=== PATIENT | male | born 1950 | race Caucasian/White ===

== ENCOUNTER 2019-07-18 15:43 | Outpatient (CLI) | payer MEDICARE, OTHER, SELFPAY ==
--- NOTE | 2019-07-18 15:45 | USCV_ITS ---
Tenzin Hauser Age: 68 Gender: M : 1950 Exam Date: 07/18/2019 16:00 Ordering Phys: Castro Pang MD (Andy) ([email or web address]) Technologist: Funmilayo Longo [place] [facility] [place]: arteriosclerosis both carotid arteries Risk Factors: Previous Vascular Surgery: L CEA Right Brachial BP: / Left Brachial BP: / Right Left Velocity (cm/s) Spectral Plaque Velocity (cm/s) Spectral Plaque Syst/Diast Broadening Syst/Diast Broadening 67.50/ 8.50 Prox CCA 61.40 / 9.30 40.10/ 7.90 Mid CCA 39.00 / 8.50 34.20/ 9.90 Bharat Distal CCA 49.30 / 13.80 41.40/ 11.80 Homo Prox ICA 44.70 / 9.90 Homo 58.30/ 15.50 Homo Mid ICA 82.90 / 23.90 Homo 72.20/ 25.60 Distal ICA 96.60 / 29.90 94.80 ECA 42.00 1.07 ICA/CCA 1.57 Antegrade Vertebral Antegrade 21.40/ 5.30 cm/s 61.50/ 21.40 cm/s Bi Subclavian Bi 79.40 97.30 FINDINGS Moderate heterogeneous plaques of the right bifurcation and internal carotid artery. Minimal plaques at the left bifurcation and proximal internal carotid artery. Moderate diffuse plaques at the mid and distal internal carotid artery on the left side Intimal thickening and minimal plaques in the common carotid arteries bilaterally Antegrade flow in the vertebral arteries bilaterally Normal Doppler flow velocities in the external carotid arteries bilaterally CONCLUSIONS Moderate heterogeneous plaques at the right bifurcation and internal carotid artery. Minimal plaques at the left bifurcation and proximal internal carotid artery. Moderate diffuse plaques at the mid and distal internal carotid artery on the left side. No significant stenosis, based on the above findings Dr Jeramy Collado MD [facility] (Electronically Signed) Final Date: 18 July 2019 20:52 S
== END 2019-07-18 15:44 | disposition home or self-care (01) ==
PROVIDERS: Family Provider Electrodiagnostic Medicine; PCP Electrodiagnostic Medicine; Visit Provider Thoracic Surgery (Cardiothoracic Vascular Surgery)
DX: I65.23 Occlusion and stenosis of bilateral carotid arteries (principal)
CPT/HCPCS: 93880

== ENCOUNTER 2019-07-25 07:32 | Outpatient (RCR) | payer MEDICARE, OTHER, SELFPAY | END 2019-08-13 23:59 | disposition home or self-care (01) | LOC: SPT 07:32 | PROVIDERS: Family Provider Electrodiagnostic Medicine; PCP Electrodiagnostic Medicine; Referring Provider Orthopaedic Surgery; Visit Provider Orthopaedic Surgery | DX: Z47.1 Aftercare following joint replacement surgery (principal); Z96.651 Presence of right artificial knee joint | CPT/HCPCS: 97110; 97150; 97161; G0283 ==

== ENCOUNTER 2019-08-14 06:00 | Outpatient (RCR) | payer MEDICARE, OTHER, SELFPAY | END 2019-09-13 23:59 | disposition home or self-care (01) | LOC: SPT 06:00 | PROVIDERS: Family Provider Electrodiagnostic Medicine; PCP Electrodiagnostic Medicine; Referring Provider Orthopaedic Surgery; Visit Provider Orthopaedic Surgery | DX: Z47.1 Aftercare following joint replacement surgery (principal); Z96.651 Presence of right artificial knee joint | CPT/HCPCS: 97110; 97530 ==

== ENCOUNTER 2019-09-14 06:00 | Outpatient (RCR) | payer MEDICARE, OTHER, SELFPAY | END 2019-10-13 23:59 | disposition home or self-care (01) | LOC: SPT 06:00 | PROVIDERS: Family Provider Electrodiagnostic Medicine; PCP Electrodiagnostic Medicine; Referring Provider Orthopaedic Surgery; Visit Provider Orthopaedic Surgery | DX: Z47.1 Aftercare following joint replacement surgery (principal); Z96.651 Presence of right artificial knee joint | CPT/HCPCS: 97110 ==

== ENCOUNTER 2020-03-06 12:19 | Outpatient (CLI) | payer MEDICARE, OTHER, SELFPAY ==
--- NOTE | 2020-03-06 12:30 | XRR_ITS ---
PROCEDURE INFORMATION: Exam: XR Bilateral Hips with Pelvis when Performed Exam date and time: 03/06/2020 12:47 PM Age: 69 years old Clinical indication: Hip pain; Bilateral; Prior surgery; Surgery type: Lumbar TECHNIQUE: Imaging protocol: XR bilateral hips with pelvis when performed. Views: 2 views. COMPARISON: CR Hips Bilat 3-4v wwo Pelv [id number] 03/09/2018 9:52 AM FINDINGS: Bones/joints: No fracture. No dislocation. Subjectively moderate bilateral hip joint degeneration. Prior posterior estela fusion from L5 to S1 with interbody spacers at L5-S1. Prior surgery at symphysis pubis. The symphysis pubis is degenerated. Soft tissues: No acute soft tissue abnormality. XR/XR hip BI 3-4V wo/w pel [id number] IMPRESSION: Bilateral moderate hip joint degeneration.
== END 2020-03-06 12:20 | disposition home or self-care (01) ==
LOC: RAD 12:25
PROVIDERS: PCP Electrodiagnostic Medicine; Visit Provider Electrodiagnostic Medicine
DX: M16.0 Bilateral primary osteoarthritis of hip (principal)
CPT/HCPCS: 73522

== ENCOUNTER 2020-03-30 13:04 | Outpatient (CLI) | payer MEDICARE, OTHER, SELFPAY ==
--- NOTE | 2020-03-30 13:10 | MR_ITS ---
WS: [id number] MRI LUMBAR SPINE NONCONTRAST HISTORY: HIP Pain; acute LEG PAIN, DEGENERATIVE DISC DZ W/RADICULOPATHY COMPARISON: 04/09/2018 TECHNIQUE: Sagittal and axial multisequence imaging is submitted. There is severe degenerative disc disease and spondylosis throughout the cervical and thoracic spines . Advanced degenerative changes with osteophytes. Fusion at the C6-7 disc level. There is encroachmen t upon the cervical canal at C3-4 and C5-6. Since the prior MRI there has been posterior fusion at the L5-S1 level with interbody spacer. L4 ante rolisthesis by 4.7 mm is now present. Multilevel degenerative disc space. No acute fractures. Mild LEFT convex curvature of the lumbar spin e. Conus terminates normally at L1. L1-L2: Annular disc bulging with facet and ligamentum flavum arthritis. Disc is asymmetric to the RIG HT. There is persistent RIGHT foraminal and RIGHT subarticular recess stenosis which is moderate. L2-L3: Diffuse annular disc bulging and osteophytic ridging. Marked ligamentum flavum disease and fac et arthritis. Moderate central, subarticular recess and bilateral foraminal stenosis with mild progre ssion. L3-L4: Diffuse asymmetric disc bulging slightly greater to the LEFT. Mild ligamentum flavum disease a nd facet arthritis. There is mild disc encroachment into the LEFT lateral recess. Moderate to severe bilateral foraminal stenosis and mild subarticular recess stenosis and mild central stenosis. L4-L5: Diffuse annular disc bulging and osteophytic ridging. Bilateral laminectomy defects. There is still deformity of the thecal sac with severe bilateral foraminal stenosis. Fluid in the facet joints bilaterally. L5-S1: Diffuse annular disc bulging and osteophytic ridging. Nerve roots are being displaced peripher ally in the thecal sac. Large posterior laminectomy defect. Mild persistent bilateral foraminal steno sis. Postoperative changes cannot be further evaluated without IV contrast. Mild ectasia abdominal aorta. MR/MR lumbar spine wo con* [id number] IMPRESSION: 1. Interval posterior lumbar fusion at L5-S1 since the prior study of 04/09/20 18. The study was performed without contrast therefore the postsurgical changes and possible recurrent disc herniations and postoperative gliosis will be diff icult to differentiate. 2. New L4 anterolisthesis by 4.7 mm. 3. Moderate to severe bilateral foraminal stenosis at L3-4 with mild central a nd subarticular recess stenosis. 4. Persistent severe bilateral foraminal stenosis at L4-5. 5. Moderate RIGHT foraminal and subarticular recess stenosis at L1-2. 6. Moderate central, subarticular recess and bilateral foraminal stenosis at L 2-3 with mild progression.
== END 2020-03-30 13:05 | disposition home or self-care (01) ==
LOC: RADSHAW 13:08
PROVIDERS: PCP Electrodiagnostic Medicine; Visit Provider Electrodiagnostic Medicine
DX: M25.559 Pain in unspecified hip (principal); M79.606 Pain in leg, unspecified; M51.17 Intervertebral disc disorders with radiculopathy, lumbosacral region; M43.27 Fusion of spine, lumbosacral region; M48.061 Spinal stenosis, lumbar region without neurogenic claudication
CPT/HCPCS: 72148

== ENCOUNTER 2020-04-03 10:28 | Outpatient (CLI) | payer MEDICARE, OTHER, SELFPAY ==
--- NOTE | 2020-04-03 10:33 | XR_ITS ---
WS: [id number] LUMBAR SPINE: 4 VIEWS TECHNIQUE: AP, lateral in neutral, flexion and extension. HISTORY: Lumbar pain COMPARISON: 04/01/2016 Prior L5-S1 fusion with interbody spacer. Mild LEFT convex curvature. Severe loss of disc space height with endplate osteophytes. L4 anterolisthesis by 5 mm with no change from flexion or extension. 3 mm retrolisthesis of L2 and L3 with no change during flexion or extensi on. SI joints are symmetric bilaterally. No soft tissue abnormalities. Prior cholecystectomy. XR/XR lumbar spine min 4V [id number] IMPRESSION: 1. Degenerative rotoscoliosis lumbar spine with L5-S1 posterior lumbar fusion. 2. L4 anterolisthesis by 5 mm with no instability. 3. Retrolisthesis of L2 and L3 with no instability.
== END 2020-04-03 10:29 | disposition home or self-care (01) ==
LOC: RADWPI 10:32
PROVIDERS: Family Provider Electrodiagnostic Medicine; PCP Electrodiagnostic Medicine; Visit Provider Orthopaedic Surgery
DX: M54.5 Low back pain (principal); M41.86 Other forms of scoliosis, lumbar region; M43.26 Fusion of spine, lumbar region
CPT/HCPCS: 72114

== ENCOUNTER → 2020-04-26 08:25 | Outpatient (BNVA) | payer MEDICARE, OTHER, SELFPAY | PROVIDERS: Family Provider Electrodiagnostic Medicine; PCP Electrodiagnostic Medicine; Visit Provider Orthopaedic Surgery | DX: Z11.59 Encounter for screening for other viral diseases (principal); Z01.812 Encounter for preprocedural laboratory examination | CPT/HCPCS: 87635 ==

== ENCOUNTER 2020-05-02 05:46 | Inpatient (IN) | payer MEDICARE, OTHER, SELFPAY ==
[2020-04-27 11:03] VITALS: BMI 28.8
--- NOTE | 2020-04-27 11:21 | ANES.PREANE2 ---
Pre-Anesthetic Assessment Pre-Anesthetic Assessment: Height/Weight: Height 1.73 m Weight 86.183 kg Preop Diagnosis: Lumbar stenosis Proposed Procedure: Operation Date: 05/02/20 07:00 Proposed Procedures p L4-S1 Fusion, L4-L5 Posterior interbody fusion, revision L5-S1 84615 [id number] M48.06(Not Applicable) - Milind Lau DO Familial anesthetic complications: denies Was Beta Nikko taken within 24 hours: N/A Social: Social History: Alcohol (1 day a week) and Tobacco (quit 30yrs ago) Exam: Pre-Anes Outpt Exam: alert, oriented x 3, clear to auscultation bilaterally and regular rate & rhythm Airway: Submandibular: WNL Cervical ROM: WNL MP: 2 Dentition: False (upper) History/ROS: No significant history except as noted Pulmonary: Pulmonary: Sleep apnea (no CPAP) CV/HEM: CV/HEM: HTN : : None reported Hepatic: Hepatic: None reported GI: GI: GERD (TUMS otc) Metabolic: Metabolic: Hyperlipidemia Musc/skel: Musc/skel: Lower Back Pain, OA/DJD and Weakness (both legs) Neuropsych: Neuropsych: TIA (peripheral sight compromised) Anesthetic Plan: ASA status: 2 Anesthesia: Anesthesia Evaluation and General Risk of > 500 ml blood loss (7ml/kg in children): No PFSH Anesthesia PFSH: Medical History (Updated 04/23/20 @ 22:01 by Keeley France MD) Carotid stenosis Coronary artery disease Diabetes mellitus Spinal stenosis Surgical History (Updated 04/20/20 @ 11:12 by Keeley France MD) H/O heart artery stent H/O neck surgery H/O right knee surgery History of back surgery History of cholecystectomy History of left-sided carotid endarterectomy Family History Father CAD (coronary artery disease) Sister Diabetes Denies family history of Cancer Hypertension Stroke Social History Smoking and tobacco status: smoker, details unknown cigarettes Packs smoked per day: 5 Years cigarettes smoked: 17 Quit status (tobacco): has quit using tobacco Year quit tobacco: 1979 Alcohol intake: current Alcohol intake frequency: 0-2 Drinks per Day Alcohol type: beer Data Anesthesia Cardiac Studies: No Data to Display
[2020-05-02] VITALS (19 sets, daily range): BP systolic 88–166; BP diastolic 53–85; PULSE 57–88; RESP 12–18; TEMP 36.3–36.6; O2SAT 92–99
--- NOTE | 2020-05-02 | XR_ITS ---
WS: [id number] Exam: XR lumbar spine 2-3V* [id number] Date/Time of Exam: 05/02/2020 7:00 AM Reason For Exam: lumbar stenosis AP and lateral C-arm images of the lower lumbar spine are submitted for evaluation. There is interbody fusion from C4 to S1 with pedicle screws and posterior rods. Disc spacers are note d at L4-5 and L5-S1. No evidence of hardware failure or malposition. Decompression laminectomy from L 4 to S1. XR/XR lumbar spine 2-3V* [id number] IMPRESSION: 1. Interbody fusion with decompression laminectomy from L4 to S1. Alignment quita ears satisfactory. No sign of hardware failure or malposition.
--- NOTE | 2020-05-02 | SCC_ITS ---
Procedure Done: 1. L4/5 Interpody with posterolateral fusion 2.Instrumentation L4-S1 (2 levels 3. INTERBODY CAGE 4. autografraft from same incision 5. Allograft 6. Bone marrow aspirate 7. laminectomy L4 8. Removal of deep hardware from spine L5 and S1 72.7 seconds of fluoroscopic guidance, for a cumulative dose of 28.36 mGy, was provided to Dr. Lau by the radiology department. C-arm images of the lumbar spine were saved for the patient's permanent record. YASSINE
[2020-05-02] MEDS: sodium chloride 0.9% 1,000 ML 30 ML IV (06:22)
[2020-05-02] MEDS: gabapentin 300 mg Capsule PO (06:24)
--- NOTE | 2020-05-02 06:44 | P.ANESUD_ITS ---
Pre-Anesthetic Update Pre-Anesthetic Assessment: Date of Surgery/Procedure: 05/02/20 Preop Roma gnosis: Lumbar stenosis Proposed Procedure: Operation Date: 05/02/20 07:00 Proposed Procedures p L4-S1 Fusion, L4-L5 Posterior interbody fusion, revision L5-S1 88078 [id number] 65526 M48.06(Not Applicable) - Milind Lau, DO Any changes to Pre-Anesthetic Assessment?: No Last Intake: Intake Last Liquid Date 05/01/20 Last Liquid Time 20:00 Last Solid Date 05/01/20 Last Solid Time 20:00 Vitals: Temperature 97.6 F 05/02/20 06:06 Temperature Source Temporal Artery S can 05/02/20 06:06 Pulse Rate 57 L 05/02/20 06:06 Respiratory Rate 18 05/02/20 06:06 Blood Pressure 166/85 05/02/20 06:06 Blood Pressure Sulma n 112 05/02/20 06:06 Pulse Oximetry 97 05/02/20 06:06 Oxygen Delivery Me thod 05/02/20 06:06 Exam: Pre-Anes Outpt Exam: alert, oriented x 3, clear to auscultation bilaterally and regular rate & rhythm Cardiac Studies: No Data to Display
--- NOTE | 2020-05-02 06:58 | W.PM.OPSUD ---
Surgery/Procedure H&P Update DATE OF PROCEDURE: May 02, 2020 DATE H&P PERFORMED: 04/03/20 H&P UPDATE INFORMATION: I have reviewed H&P completed within last 30 days, I have examined patient prior to procedure and No changes to prior documentation PREOP DIAGNOSIS: Lumbar stenosis PLANNED PROCEDURE: Operation Date: 05/02/20 07:00 Proposed Procedures p L4-S1 Fusion, L4-L5 Posterior interbody fusion, revision L5-S1 13959 04115 38290 M48.06(Not Applicable) - Milind Lau DO
[2020-05-02] MEDS: heparin, porcine 1,000 unit/mL INJ 10 mL 10000 UNIT IRRIGATION (08:13)
--- NOTE | 2020-05-02 12:25 | PM.OP ---
Operative Report Date of procedure: May 02, 2020 Pre-op Diagnosis: Lumbar stenosis Post-op diagnosis: same Procedure Done: 1. L4/5 Interpody with posterolateral fusion 2.Instrumentation L4-S1 (2 levels 3. INTERBODY CAGE 4. autografraft from same incision 5. Allograft 6. Bone marrow aspirate 7. laminectomy L4 8. Removal of deep hardware from spine L5 and S1 Surgeon: Milind Lau Anesthesia: General Estimated blood loss (mL): 200 Condition: stable Disposition: PACU Procedure: 1. L4/5 Interpody with posterolateral fusion 2.Instrumentation L4-S1 (2 levels 3. INTERBODY CAGE 4. autografraft from same incision 5. Allograft 6. Bone marrow aspirate 7. laminectomy L4 8. Removal of deep hardware from spine L5 and S1 Patient was brought to the operative suite placed in the prone position after undergoing anesthesia and placing in neuro monitoring. Of note neurologic was fine throughout the entire case. Patient was then prepped and draped in normal sterile fashion skin was made over the L4-5 level side subperiosteal dissection was made from L4-L5 to the transverse processes. Scar tissue was taken down over the L5-S1 levels screws were identified the L5 and S1 screws were removed. S1 screws were replaced with 8 5 screws and set of 6 5 Dorton. In the L5 screws were placed but placed more medially into the pedicles straight on. In order to facilitate lining up the S1 screw with the L4 screw. L4 screws were then pedicle screws were placed using the drill and gearshift. Size 56 screws were placed. Extension was done performing the laminectomy at L4. Actually prior to this the bone marrow aspirate was taken and placed onto the allograft. Throughout the laminectomy process bone chips were taken into the suction. And these were used as autograft. As were chips from [employer]. Drill was used to take down laminectomy along with Kerrison Amezquita curettes. The ligament plate was taken down as distal as possible however some of this was scarred down to the dura. Retractor was used to move the dura over and then dissipates identified opened with philip up to size 8 size 8 x 11 cage was inserted. This was packed initially with this patient is packed with some allograft osteoamp and then the cage was packed with osteoamp. Once the cages placed subsequent bone to be preposition under C arm then rods were placed onto the screws and tightened into place bone was decorticated and bone graft the autograft and allograft were packed in and around the screws laterally and medial. And then the wound was closed with 0 Vicryl 2-0 Vicryl and Monocryl sutures. Sterile dressings were applied and patient was transferred to the PACU in stable condition dura was in good repair but there was some scar tissue ligament scarred down to it. However the nerves were completely decompressed using curette and Kerrisons.
[2020-05-02] MEDS: fentaNYL 50 mcg/mL INJ 2mL IVP ×2 (12:32→12:37)
--- NOTE | 2020-05-02 12:48 | XR_ITS ---
WS: [id number] Exam: XR lumbar spine 2-3V* [id number] Date/Time of Exam: 05/02/2020 2:00 PM Reason For Exam: PA/LAT Post op fusion There is interbody fusion of the spine from L4 to S1 with pedicle screws and posterior rods. There ar e disc spacers at L4-5 and L5-S1. Alignment is satisfactory. Hardware appears to be in satisfactory p osition. There are degenerative disc changes and spondylosis. Facet DJD at all levels. XR/XR lumbar spine 2-3V* [id number] IMPRESSION: 1. Interbody fusion of the spine from L4 to S1 with posterior hardware. A decom pression laminectomy noted. 2. Vertebral alignment and hardware in satisfactory position.
[2020-05-02] MEDS: lactated ringers 1,000 ML 90 ML IV (13:59)
[2020-05-02] MEDS: ketorolac 30 mg/mL INJ IVP (14:04)
--- NOTE | 2020-05-02 14:51 | P.CONIM_ITS ---
Providers/Reason For Consult Consulting Physican/Specialty*: Judi Vaz DO Reason for Consult*: Co management of comormid medical conditions Attending Physician: Milind Lau DO Primary Care Provider: Dirk Senior DO History of Present Illness History of Present Illness 69-year-old man with past medical history of DM,HTN, coronary artery disease status post drug-eluting stent placed to mid LAD for 80% lesion and mid to distal circumflex for 80% lesion on 01/09/2017 for abnormal stress test. Left main with luminal irregularities and RCA nondominant and diffusely diseased. He also has a history of carotid artery disease and underwent left carotid endarterectomy on May 2015 and ANSHU non compliant to CPAP (unable to tolerate). He did complain of significant leg fatigue when he walks. His atorvastatin was stopped 2 months back and he started . Was admitted for lumbar stenosis s/p L4/5 Interpody with posterolateral fusion. Medicine was consulted for the co management of comorbid medical conditions. Vitals Reviewed, Labs :Pending Review of Systems Const: Denies: fever(s), chills, body aches, change in appetite or diaphoresis Card: Denies: palpitations, edema, swelling of feet/ankles, dyspnea on exertion, orthopnea or leg pain with exertion Resp: Denies: dyspnea, productive cough, wheezing or pain on inspiration GI: Denies: abdominal pain, nausea, vomiting, diarrhea or constipation : Denies: flank pain or difficulty urinating Musc: Denies: back pain, extremity pain or extremity swelling Neuro: Denies: headache(s), difficulty walking or confusion Meds/Allergies Home Medications and Allergies Home Medications Medication Instructions Recorded Confirmed Last Taken Type aspirin 325 mg tablet 325 mg PO DAILY 03/15/20 05/02/20 04/30/20 History lisinopril 40 mg tablet 40 mg PO DAILY 03/15/20 05/02/20 05/02/20 05:00 History lovastatin 40 mg tablet 40 mg PO DAILY 04/20/20 05/02/20 05/02/20 05:00 History gabapentin 300 mg PO PRN PRN 05/02/20 05/02/20 04/30/20 History Allergies Allergy/AdvReac Type Severity Reaction Status Date / Time No Known Allergies Allergy Verified 04/27/20 11:00 Current Medications Current Medications Generic Name Dose Route Start Last Admin Trade Name Freq PRN Reason Stop Dose Admin Lactated Ringer's 1,000 mls @ 90 mls/hr 05/02/20 13:00 05/02/20 13:59 Lactated Ringers IV 90 mls/hr .[id number] JAYSON Administration Ketorolac Tromethamine 30 mg 05/02/20 12:46 05/02/20 14:04 Ketorolac 30 Mg/Ml Inj IVP 30 mg Q6H PRN Administration BREAKTHROUGH PAIN PFSH Acute PFSH: Medical History Carotid stenosis Coronary artery disease Diabetes mellitus Spinal stenosis Surgical History H/O heart artery stent H/O neck surgery H/O right knee surgery History of back surgery History of cholecystectomy History of left-sided carotid endarterectomy Family History Father CAD (coronary artery disease) Sister Diabetes Denies family history of Cancer Hypertension Stroke Social History Smoking and tobacco status: smoker, details unknown cigarettes Packs smoked per day: 5 Years cigarettes smoked: 17 Quit status (tobacco): has quit using tobacco Year quit tobacco: 1979 Alcohol intake: current Alcohol intake frequency: 0-2 Drinks per Day Alcohol type: beer Vitals/I&O/Wt Last Vital Signs Temp 97.4 F L 05/02/20 13:05 Pulse 69 05/02/20 14:34 Resp 18 05/02/20 14:32 BP 93/53 05/02/20 13:35 Pulse Ox 95 05/02/20 14:32 05/01/20 05/02/20 05/02/20 22:59 06:59 14:59 Intake Total 600 / 600 Output Total 575 / 575 Balance Physical Exam Const: COMMON NORMALS: patient oriented x3 HENMT: COMMON NORMALS: normocephalic and atraumatic HEAD & SCALP: normocephalic and atraumatic Eye: COMMON NORMALS: no scleral icterus GENERAL EYE: appearance normal, both eyes and all related structures Chest: CHEST: Yes Symmetrical chest wall rise Resp: COMMON NORMALS: normal respiratory effort and clear to auscultation bilaterally EFFORT & INSPECTION: Yes symmetric chest movement AUSCULTATION: clear to auscultation bilaterally Cardio: COMMON NORMALS: regular rate, regular rhythm, S1 normal heart sound present, S2 normal heart sound present, No gallops present (Cardio), No murmurs present (Cardio), No rub (Cardio) and Peripheral pulses 2+ throughout RATE: regular rate RHYTHM: regular rhythm HEART SOUNDS: S1 normal heart sound present and S2 normal heart sound present PERIPHERAL PULSES: Peripheral pulses 2+ throughout GI: COMMON NORMALS: Normal to inspection, nondistended, normoactive bowel sounds present, Soft to palpation, non-tender, No hepatosplenomegaly present and no masses AUSCULTATION: Yes normoactive bowel sounds PALPATION: Yes Soft to palpation and Yes No hepatosplenomegaly present RECTAL EXAM: Yes deferred Extremity: COMMON NORMALS: no clubbing, cyanosis or edema and no pedal edema Neuro: COMMON NORMALS: patient oriented x3 Urinary Catheter Management^: F: Cath Placed During This Visit: yes, but has since been removed by the nurse Urinary Catheter Date of Insertion: 05/02/20 Urinary Catheter Time of Insertion: 07:35 Date Urinary Catheter Removed: 05/02/20 Time Urinary Catheter Discontinued: 12:06 A&P Assessment and plan (1) Diabetes mellitus: Patient has been off anti diabetic medications for multiple years.Diabetes is well controlled on diet and other life style modifications. [facility] Monitor FSG Diabetic Diet Status: Acute (2) History of left-sided carotid endarterectomy: Continue Aspirin 325 mg oral daily Continue Lisinopril 40 mg oral daily Continue Atorvas 20 mg oral Status: Acute (3) CAD (coronary artery disease): coronary artery disease status post drug-eluting stent placed to mid LAD for 80% lesion and mid to distal circumflex for 80% lesion on 01/09/2017 for abnormal stress test. Continue Aspirin 325 mg oral daily Continue Lisinopril 40 mg oral daily Continue Atorvas 20 mg oral daily Status: Acute Consult Attestations Medical Necessity Statement: Patient needs to be in hospital for the management of spinal stenosi s/p L4/5 Interpody with posterolateral fusion. 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
[2020-05-02] MEDS: HYDROcodone-acetaminophen 5-325 mg Tablet PO ×2 (16:09→20:45)
[2020-05-02 17:14] LABS: Glucose Point of Care 232 mg/dL (70-110)
[2020-05-02] MEDS: docusate sodium 100 mg Capsule PO (18:17)
[2020-05-02 20:56] LABS: Glucose Point of Care 257 mg/dL (70-110)
--- NOTE | 2020-05-02 21:04 | PM.PACU ---
PACU note Post-Anesthesia Exam: awake and vital signs stable Disposition: admitted
[2020-05-03] VITALS (7 sets, daily range): BP systolic 97–124; BP diastolic 52–66; PULSE 58–87; RESP 18–20; TEMP 36.7–37.9; O2SAT 91–96
[2020-05-03] MEDS: lactated ringers 1,000 ML 90 ML IV ×2 (02:11→17:43)
[2020-05-03] MEDS: HYDROcodone-acetaminophen 5-325 mg Tablet PO ×3 (02:15→17:42)
[2020-05-03 05:48] LABS: Basophils % 0.2 %; Eosinophils # 0.1 10^3/uL (0.0-0.8); Eosinophils % 0.8 %; Hematocrit 32.2 % (42.0-52.0); Hemoglobin 10.3 g/dL (11.7-16.6); Lymphocytes # 0.8 10^3/uL (0.8-4.8); Lymphocytes % 9.3 %; Mean Corpuscular Hemoglobin 31.3 pg (28.0-34.0); Mean Corpuscular Volume 97.9 fL (80-94); Mean Platelet Volume 10.7 fL (7.4-10.4); Monocytes # 0.7 10^3/uL (0.2-0.9); Monocytes % 7.9 %; Neutrophils # 7.32 10^3/uL (1.8-7.7); Neutrophils % 81.5 %; Nucleated Red Blood Cells % 0 %; Platelet Count 126 10^3/cmm (130-400); Red Blood Count 3.29 10^6/uL (4.1-5.3); Red Cell Distribution Width 12.4 % (12.1-15.1)
[2020-05-03 06:10] LABS: Anion Gap 14.7 (5-19); Blood Urea Nitrogen 23 mg/dL (8-23); Calcium 8.1 mg/dL (8.5-10.5); Carbon Dioxide 26 mmol/L (22-29); Chloride 102 mmol/L (98-107); Glomerular Filtration Rate 83.4 mL/min (90-130); Glucose 161 mg/dL (65-115); Osmolality Calculated 293 mOsm/kg (285-295); Potassium 4.7 mmol/L (3.5-5.1); Sodium 138 mmol/L (136-145)
[2020-05-03] MEDS: enoxaparin 40 mg/0.4 mL Syringe SUBCUT (06:13)
[2020-05-03 06:41] LABS: Glucose Point of Care 146 mg/dL (70-110)
--- NOTE | 2020-05-03 07:23 | PM.PN ---
Subjective Subjective: Interval history: pain in upper back this was occuring prior to surgery. He has had surgery here before Vitals/I&O/Wt Last Vital Signs Temp 98.4 F 05/03/20 04:30 Pulse 70 05/03/20 04:30 Resp 18 05/03/20 04:30 BP 97/52 05/03/20 04:30 Pulse Ox 93 05/03/20 04:30 05/02/20 05/03/20 05/03/20 22:59 06:59 14:59 Intake Total 300 / 900 1000 / 1900 Output Total 250 / 825 350 / 1175 Balance 50 / 75 650 / 725 Physical Exam Narrative: EXAM NARRATIVE: 10/17 stregth lower extremity Urinary Catheter Management^: F: Cath Placed During This Visit: yes, but has since been removed by the nurse Urinary Catheter Date of Insertion: 05/02/20 Urinary Catheter Time of Insertion: 07:35 Date Urinary Catheter Removed: 05/02/20 Time Urinary Catheter Discontinued: 12:06 Data : 05/03/20 04:56 05/03/20 04:56 A&P Additional A&P Information POD#1 L4-S1 PSF will order MRI and CT scan of thoracic spine. 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
--- NOTE | 2020-05-03 07:26 | CT_ITS ---
WS: [id number] CT THORACIC SPINE HISTORY: pain, prior thoracic surgery. TECHNIQUE: Contiguous 2.5 mm axial images are reviewed to thoracic spine. Images are reformatted in s agittal and coronal planes. All CT scans at [facility] use at least one of these dose opt imization techniques: automated exposure control; mA and/or kV adjustment per patient size (includes targeted exams where dose is matched to clinical indication); or iterative reconstruction. DLP: 2255.76 mGy.cm COMPARISON: 10/20/2014 thoracic spine MRI. Mild straightening of the normal thoracic lordosis. Large anterior bridging osteophytes in the cervic al thoracic region. Disc spaces are narrowed throughout the thoracic spine, most significant at T7-8. There is mild anterior wedging of T4. Mild RIGHT convex curvature thoracic spine. Dependent changes are noted at the lung bases bilaterally. C6-7 and C7-T1: Hypertrophic vertebral body and facet osteophytes encroaching into the central canal and foramen. T1-2: Mild bilateral foraminal narrowing due to osteophytes. T2-3: Normal. T3-4: Moderate RIGHT foraminal narrowing due to vertebral body and facet osteophytes. T4-5: Normal. T5-6: Normal. T6-7: Normal. T7-8: Posterior vertebral body osteophyte encroaches on the central thoracic cord with mild stenosis centrally. T8-9: Normal. T9-10: Normal. T10-11: Hypertrophic bone formation extends from the facet joints anteriorly encasing the thoracic c anal. Moderate central and bilateral foraminal stenosis due to these osteophytes. Postsurgical change s are noted posteriorly and there are large laminectomy defects just below the near bony encasement a t the T11 level. T11-12: Bilateral facet joint arthritis causing mild bilateral foraminal narrowing and mild central stenosis. Post surgical changes are noted in the soft tissues posteriorly at the T10-11 level. There is a small amount of air scattered within the paraspinal muscles at the postsurgical site. No obvious fluid col lections on this unenhanced study. There are a few foci of air also within the thecal sac at the T12- L1 level. No air within the disc spaces. No destruction of bone to suggest osteomyelitis. CT/CT thoracic spin wo con* [id number] IMPRESSION: 1. Air in the soft tissue of the paraspinal muscles beginning in the lower tho racic spine into the upper lumbar spine is probably related to the recent lumba r spine surgery. 2. Postsurgical laminectomy defects at the T10-11 level. These are remote surg ical changes. 3. Circumferential hypertrophic bone formation surrounding the thoracic cord a t the T10-11 level causing a moderate central and bilateral foraminal stenosis. Laminectomy defect remains patent without bony encasement at the mid T11 level . 4. Mild bilateral foraminal central stenosis at T11-12. 5. Mild central stenosis at T7-8 predominantly due to osteophyte disease.
[2020-05-03] MEDS: ketorolac 30 mg/mL INJ IVP ×2 (08:21→15:28)
[2020-05-03] MEDS: atorvastatin 40 mg Tablet 20 MG PO (08:22)
[2020-05-03] MEDS: famotidine 20 mg/2 mL INJ IVP (08:22)
[2020-05-03] MEDS: docusate sodium 100 mg Capsule PO ×2 (08:23→17:42)
[2020-05-03] MEDS: aspirin 325 mg Tablet PO (08:23)
--- NOTE | 2020-05-03 09:41 | PM.PN ---
Subjective Subjective: Interval history: Complaining of reflux and continued back pain. No fever, chills, nausea or vomiting. Vitals/I&O/Wt Last Vital Signs Temp 99.4 F 05/04/20 00:00 Pulse 82 05/04/20 00:00 Resp 18 05/04/20 00:00 BP 157/72 05/04/20 00:00 Pulse Ox 94 05/04/20 00:00 05/03/20 05/03/20 05/04/20 14:59 22:59 06:59 Intake Total 1240 / 1240 480 / 1720 Output Total 100 / 100 1050 / 1150 480 / 1630 Balance 1140 / 1140 -570 / 570 -480 / 90 Physical Exam Const: COMMON NORMALS: patient oriented x3 HENMT: COMMON NORMALS: normocephalic and atraumatic HEAD & SCALP: normocephalic and atraumatic Eye: COMMON NORMALS: no scleral icterus GENERAL EYE: appearance normal, both eyes and all related structures Chest: CHEST: Yes Symmetrical chest wall rise Resp: COMMON NORMALS: normal respiratory effort and clear to auscultation bilaterally EFFORT & INSPECTION: Yes symmetric chest movement AUSCULTATION: clear to auscultation bilaterally Cardio: COMMON NORMALS: regular rate, regular rhythm, S1 normal heart sound present, S2 normal heart sound present, No gallops present (Cardio), No murmurs present (Cardio), No rub (Cardio) and Peripheral pulses 2+ throughout RATE: regular rate RHYTHM: regular rhythm HEART SOUNDS: S1 normal heart sound present and S2 normal heart sound present PERIPHERAL PULSES: Peripheral pulses 2+ throughout GI: COMMON NORMALS: Normal to inspection, nondistended, normoactive bowel sounds present, Soft to palpation, non-tender, No hepatosplenomegaly present and no masses AUSCULTATION: Yes normoactive bowel sounds PALPATION: Yes Soft to palpation and Yes No hepatosplenomegaly present RECTAL EXAM: Yes deferred Extremity: COMMON NORMALS: no clubbing, cyanosis or edema and no pedal edema Neuro: COMMON NORMALS: patient oriented x3 Urinary Catheter Management^: F: Cath Placed During This Visit: yes, but has since been removed by the nurse Urinary Catheter Date of Insertion: 05/02/20 Urinary Catheter Time of Insertion: 07:35 Date Urinary Catheter Removed: 05/02/20 Time Urinary Catheter Discontinued: 12:06 Data : 11/19/20 04:56 05/03/20 04:56 A&P Assessment and plan (1) Diabetes mellitus: SSI Monitor FSG Diabetic Diet Status: Acute (2) History of left-sided carotid endarterectomy: Continue Aspirin 325 mg oral daily Continue Lisinopril 40 mg oral daily Continue Atorvastatin 20 mg oral Status: Acute (3) CAD (coronary artery disease): coronary artery disease status post drug-eluting stent placed to mid LAD for 80% lesion and mid to distal circumflex for 80% lesion on 01/09/2017 for abnormal stress test. Continue Aspirin 325 mg oral daily Continue Lisinopril 40 mg oral daily Continue Atorvas 20 mg oral daily Status: Acute Attestations Medical Necessity Statement*: Will require further hospitalization as per primary team Time Spent in Patient Care: Greater than 35 minutes Coding Level of Care Code Acute Devops Architect for g Fwd Diagnoses Diabetes mellitus E11.9 History of left-sided carotid endarterectomy Z98.890 CAD (coronary artery disease) I25.10
--- NOTE | 2020-05-03 10:19 | PC.NURSE ---
off unit Pt went to MRI.
[2020-05-03 11:07] LABS: Glucose Point of Care 217 mg/dL (70-110)
--- NOTE | 2020-05-03 11:15 | ANE.PACU2 ---
Inpatient post-anesthesia follow up: Airway intact: Yes Vital signs: Temperature 98.8 F Pulse Rate 65 Respiratory Rate 18 Blood Pressure 107/61 Pulse Oximetry 94 Oxygen Delivery Me thod Room Air Oxygen Flow Rate 8 Fraction of Inspir ed Oxygen Hydration adequate: Yes Nausea and vomiting: No Pain level: 1 Mental status: Baseline
--- NOTE | 2020-05-03 14:13 | PC.CHAP ---
Pastoral Care Encounter/Spiritual Assessment Type of Contact [] Declined picker tender visit [] Patient/Family/Request visit [] Outpatient visit [] Follow-up visit [] Physician referral [] Code/Alert [x] Routine visit [] Staff referral [] Actively dying [] Patient sleeping [] Family support [] [] Out of room [] Palliative care [] [x] Receiving care in room [] Pre-surgical visit [] Trauma [] Long length of stay [] ICU visit [] Other: Relational/Emotional Strength [x] Patient feels connected with others/family/visitors/staff [] Distress [] Loneliness/isolation [] Abandonment Spirituality of Patient [x] Person of Sosa [] Attends Mandaen of their Sosa [x] Believes in Prayer [] Reads Bible or Rastafari materials [] There are Spiritual issues to be addressed Gusset Maker Interventions [x] Prayer [x] Active listening [x] Non-anxious presence [x] Spiritual/emotional support [] Crisis/trauma care [x] Spiritual counseling [] Bereavement support [] Provided bereavement packet [] Provided Bible/devotional materials [] Provided toy/stuffed animal, coloring book to patient or family member [] Provided Communion [] Anointing/[place] [] Salvation [x] Completed spiritual assessment [] Other: Impact on Illness or Injury [] Angry [] Fearful [] Anxious [] Often cries [] Exhaustion [] Unable to work [] Unable to attend yazdanism [] Unable to walk/stand [] Unable to read [] Unable to drive [] Unable to eat/drink [] Unable to sleep [] Unable to be with family [] Patient intubated [] Other: Summary Feels good has agood attitude going home Time spent with patient 10 mins
[2020-05-03 17:34] LABS: Glucose Point of Care 266 mg/dL (70-110)
[2020-05-03] MEDS: alum-mag-hydroxide-sime 30 mL UDC PO (20:25)
[2020-05-03 21:19] LABS: Glucose Point of Care 176 mg/dL (70-110)
[2020-05-04] VITALS (12 sets, daily range): BP systolic 134–187; BP diastolic 53–88; PULSE 66–97; RESP 18–24; TEMP 36.8–37.9; O2SAT 89–97
[2020-05-04] MEDS: HYDROcodone-acetaminophen 5-325 mg Tablet PO ×3 (00:29→17:35)
[2020-05-04] MEDS: ketorolac 30 mg/mL INJ IVP (04:47)
[2020-05-04] MEDS: lactated ringers 1,000 ML 90 ML IV (05:00)
[2020-05-04] MEDS: enoxaparin 40 mg/0.4 mL Syringe SUBCUT (05:01)
[2020-05-04] MEDS: ipratropium-albuterol 3 mL Neb INHALATION (05:30)
--- NOTE | 2020-05-04 05:55 | XR_ITS ---
WS: [id number] Exam: XR chest 1V portable [id number] Date/Time of Exam: 05/04/2020 5:55 AM Reason For Exam: SHORTNESS OF BREATH Comparison 01/16/2017. Findings: The lungs are clear and fully expanded. Costophrenic angles are sharp. No infiltrates. Bronchovascula r relief appears normal. Cardiac silhouette is unremarkable. Bony elements are intact. XR/XR chest 1V portable [id number] IMPRESSION: Unremarkable chest radiograph.
--- NOTE | 2020-05-04 05:56 | ECG_ITS ---
[facility] Test Date: 2020-05-04 Pat Name: Tenzin Hauser Department: Room: 276 Gender: Male Service Crew Leader: : 1950 Requested By: Fredy Lees Order Number: [id number] Jansen MD: Keeley France M.D. Measurements Intervals [place] Rate: 75 P: 49 NM: 180 QRS: -8 QRSD: 94 T: -14 QT: 358 QTc: 401 Interpretive Statements SINUS RHYTHM Compared to ECG 06/02/2017 09:57:30 Sinus bradycardia no longer present Myocardial infarct finding no longer present Electronically Signed On 05-04-2020 10:24:42 INSTRUCTIONAL SYSTEMS DESIGNER by Keeley France M.D. [id number]
[2020-05-04 06:02] LABS: Basophils % 0.3 %; Eosinophils # 0.1 10^3/uL (0.0-0.8); Eosinophils % 1.5 %; Hematocrit 29.8 % (42.0-52.0); Hemoglobin 9.6 g/dL (11.7-16.6); Lymphocytes # 0.7 10^3/uL (0.8-4.8); Lymphocytes % 9.3 %; Mean Corpuscular HGB Conc 32.2 g/dL (30.0-36.0); Mean Corpuscular Hemoglobin 31.8 pg (28.0-34.0); Mean Corpuscular Volume 98.7 fL (80-94); Mean Platelet Volume 10.7 fL (7.4-10.4); Monocytes # 0.7 10^3/uL (0.2-0.9); Monocytes % 8.9 %; Neutrophils # 6.35 10^3/uL (1.8-7.7); Neutrophils % 79.6 %; Nucleated Red Blood Cells % 0 %; Platelet Count 110 10^3/cmm (130-400); Red Blood Count 3.02 10^6/uL (4.1-5.3); Red Cell Distribution Width 12.5 % (12.1-15.1)
[2020-05-04 06:06] LABS: Glucose Point of Care 221 mg/dL (70-110)
[2020-05-04 06:23] LABS: Anion Gap 10.9 (5-19); Blood Urea Nitrogen 16 mg/dL (8-23); Calcium 7.9 mg/dL (8.5-10.5); Carbon Dioxide 27 mmol/L (22-29); Chloride 100 mmol/L (98-107); Creatinine Clr Calc Pharmacy 91.7695; Glomerular Filtration Rate 111.5 mL/min (90-130); Glucose 208 mg/dL (65-115); Osmolality Calculated 285 mOsm/kg (285-295); Potassium 3.9 mmol/L (3.5-5.1); Sodium 134 mmol/L (136-145)
--- NOTE | 2020-05-04 06:25 | PC.NURSE ---
WHEN THE PHYSICIAN WAS AT THE PATIENT BEDSIDE, HE REPORTED HE WAS SHORT OF BREATH, SEEING STARS WHEN HE CLOSED HIS EYES, AND DIAPHORETIC. VERBAL ORDERS GIVEN FOR A STAT BEDSIDE CHEST X-RAY AND BEDSIDE EKG. ORDERS WERE PLACED. VITAL SIGNS WERE 163/72 79 20 99.2 ORAL AND A BLOOD GLUCOSE OF 221.
--- NOTE | 2020-05-04 06:26 | PM.PN ---
Subjective Subjective: Interval history: 69-year-old male with a past medical history significant for diabetes mellitus, hypertension, nonobstructive carotid arterial disease, who was admitted to the hospital and taken for L4/5 fusion, L4 laminectomy and removal of deep hardware from L5/S1 on 05/02/2020. Medicine was consulted for medical management. Post operative course was complicated with persistent lumbar pain and difficulty ambulating. CT of thoracic spine was performed which showed postsurgical changes. Circumferential hypertrophic bone formation surrounding the thoracic cord at the T10-11 level causing a moderate central and bilateral foraminal stenosis. Laminectomy defect remains patent without bony encasement at the mid T11 level and my central stenosis at T7-8. MRI was ordered however pending. Due to difficult urination patient had snowden placed. 05/04/20 Patient was seen early in the morning during which time he was wanting to stand to use the restroom. Stated he was having difficulty urinating lying flat. During this time patient became acutely short of breath and diaphoretic. Vitals were stable however. oxygen saturation remained above 92. EKG performed did not show any evidence of acute ischemia. Appeared to be normal sinus rhythm. Denied pleuritic chest pain. Patient stated he felt as if he was about to pass out. No LOC. Suspected to have possible orthostatis. Medications: Reviewed: Yes Vitals/I&O/Wt Last Vital Signs Temp 98.3 F 05/04/20 04:00 Pulse 89 05/04/20 04:00 Resp 24 H 05/04/20 04:00 BP 160/88 05/04/20 05:53 Pulse Ox 92 05/04/20 04:00 05/03/20 05/03/20 05/04/20 14:59 22:59 06:59 Intake Total 1240 / 1240 480 / 1720 1000 / 2720 Output Total 100 / 100 1050 / 1150 480 / 1630 Balance 1140 / 1140 -570 / 570 520 / 1090 Physical Exam Narrative: EXAM NARRATIVE: Alert, awake, in mild respiratory distress HEENT; Grossly unremakeble CVS: Regular rate and rhythm no murmurs Chest- symmetrical expansion of bilateral chest, nonlabored Abdomen- soft nontender nondistended Extremities-no significant edema Urinary Catheter Management^: F: Cath Placed During This Visit: yes, but has since been removed by the nurse Urinary Catheter Date of Insertion: 05/02/20 Urinary Catheter Time of Insertion: 07:35 Date Urinary Catheter Removed: 05/02/20 Time Urinary Catheter Discontinued: 12:06 Data : 05/04/20 05:16 05/04/20 05:16 A&P Assessment and plan (1) Dyspnea: Status: Acute (2) Lumbar radiculopathy: Status: Acute (3) Hypertension: Status: Acute (4) Diabetes mellitus: Status: Acute (5) Dyslipidemia: Status: Acute Will check arterial blood gases Chest x-ray stat now Supplemental oxygen as needed If progressing may need to obtain CTA Chest PE protocol Duo Neb x 1 now Saline lock IVF May consider lasix Snowden placement due to difficulty urination Check Orthostatic vitals Pain control Continue currrent medication Follow up on MRI as per spine surgery Post op management per ortho Attestations Medical Necessity Statement*: Due to continued back pain, shortness of breath, pending imaging will require further hospitalization Time Spent in Patient Care: Greater than 35 minutes Coding Level of Care Code Acute Manager Professional Development for Octavia Lobo Diagnoses Dyspnea R06.00 Lumbar radiculopathy M54.16 Hypertension I10 Diabetes mellitus E11.9 Dyslipidemia E78.5
[2020-05-04 07:25] LABS: Glucose Point of Care 214 mg/dL (70-110)
--- NOTE | 2020-05-04 08:34 | P.PN_ITS ---
Subjective Subjective: Interval history: patient had episode of shortness of breath. Hospitalist is currently working up patient Vitals/I&O/Wt Last Vital Signs Temp 99.0 F 05/04/20 08:00 Pulse 74 05/04/20 08:00 Resp 18 05/04/20 08:00 BP 150/75 05/04/20 08:00 Pulse Ox 97 05/04/20 08:00 05/03/20 05/04/20 05/04/20 22:59 06:59 14:59 Intake Total 480 / 1720 1000 / 2720 Output Total 1050 / 1150 680 / 1830 Balance -570 / 570 320 / 890 Physical Exam Narrative: EXAM NARRATIVE: BLE 10/17 stregth Urinary Catheter Management^: F: Cath Placed During This Visit: yes, but has since been removed by the nurse Urinary Catheter Date of Insertion: 05/02/20 Urinary Catheter Time of Insertion: 07:35 Date Urinary Catheter Removed: 05/02/20 Time Urinary Catheter Discontinued: 12:06 Data : 05/04/20 05:16 05/04/20 05:16 A&P Additional A&P Information Postop day #2 L4-S1 posterior spine fusion. Patient had episode of shortness of breath is being worked up patient had a CT scan which does not show any abnormalities other than his previous surgery of his upper thoracic spine. MRI was canceled due to the patient's pain at this point we will hold off on doing thing for his upper back until the evaluation of his shortness of breath is evaluated. Attestations Medical Necessity Statement*: pain Coding Level of Care Code Acute Supervisor Mattress And [employer]ings for Octavia Lobo
[2020-05-04] MEDS: lisinopril 20 mg Tablet 40 MG PO (08:43)
[2020-05-04] MEDS: docusate sodium 100 mg Capsule PO ×2 (08:43→17:35)
[2020-05-04] MEDS: atorvastatin 40 mg Tablet 20 MG PO (08:43)
[2020-05-04] MEDS: aspirin 325 mg Tablet PO (08:43)
[2020-05-04 11:05] LABS: Glucose Point of Care 176 mg/dL (70-110)
[2020-05-04] MEDS: polyethylene glycol 3350 Pkt 17 gm PO (15:26)
[2020-05-04 17:23] LABS: Glucose Point of Care 169 mg/dL (70-110)
[2020-05-04] MEDS: acetaminophen 325 mg Tablet 650 MG PO (17:35)
[2020-05-04 21:14] LABS: Glucose Point of Care 174 mg/dL (70-110)
[2020-05-05] VITALS (12 sets, daily range): BP systolic 101–196; BP diastolic 65–90; PULSE 66–88; RESP 16–20; TEMP 36.7–37.2; O2SAT 94–97
[2020-05-05] MEDS: HYDROcodone-acetaminophen 5-325 mg Tablet PO ×5 (00:20→21:52)
[2020-05-05] MEDS: enoxaparin 40 mg/0.4 mL Syringe SUBCUT (05:08)
[2020-05-05 05:44] LABS: Basophils % 0.1 %; Eosinophils % 0.4 %; Hematocrit 32.1 % (42.0-52.0); Hemoglobin 10.5 g/dL (11.7-16.6); Lymphocytes # 0.9 10^3/uL (0.8-4.8); Lymphocytes % 10.7 %; Mean Corpuscular HGB Conc 32.7 g/dL (30.0-36.0); Mean Corpuscular Hemoglobin 31.6 pg (28.0-34.0); Mean Corpuscular Volume 96.7 fL (80-94); Monocytes # 0.6 10^3/uL (0.2-0.9); Monocytes % 7.4 %; Neutrophils # 6.74 10^3/uL (1.8-7.7); Neutrophils % 80.9 %; Nucleated Red Blood Cells % 0 %; Platelet Count 122 10^3/cmm (130-400); Red Blood Count 3.32 10^6/uL (4.1-5.3); Red Cell Distribution Width 12.1 % (12.1-15.1); White Blood Count 8.3 10^3/uL (4.0-10.0)
[2020-05-05] MEDS: lisinopril 20 mg Tablet 40 MG PO (06:06)
[2020-05-05 06:28] LABS: Anion Gap 12.7 (5-19); Blood Urea Nitrogen 10 mg/dL (8-23); Calcium 8.5 mg/dL (8.5-10.5); Carbon Dioxide 26 mmol/L (22-29); Chloride 100 mmol/L (98-107); Creatinine Clr Calc Pharmacy 91.7695; Glomerular Filtration Rate 133.2 mL/min (90-130); Glucose 198 mg/dL (65-115); Osmolality Calculated 285 mOsm/kg (285-295); Potassium 3.7 mmol/L (3.5-5.1); Sodium 135 mmol/L (136-145)
[2020-05-05 06:47] LABS: Glucose Point of Care 182 mg/dL (70-110)
--- NOTE | 2020-05-05 08:22 | PM.PN ---
Subjective Subjective: Interval history: Patient with some nausea this morning. Pain appears to be controlled. At this point likely shooting for discharge on Thursday. Vitals/I&O/Wt Last Vital Signs Temp 98.9 F 05/05/20 08:00 Pulse 70 05/05/20 08:00 Resp 18 05/05/20 08:00 BP 179/82 05/05/20 08:00 Pulse Ox 96 05/05/20 08:00 05/04/20 05/05/20 05/05/20 22:59 06:59 14:59 Intake Total 480 / 720 Output Total 2500 / 4200 775 / 4975 Balance -2020 / -3480 -775 / -4255 Physical Exam Narrative: EXAM NARRATIVE: 5-5 strength bilateral lower extremities. Sensations intact. Urinary Catheter Management^: F: Cath Placed During This Visit: yes, but has since been removed by the nurse Reason for Continuing Indwelling Catheter: Acute Urinary Retention or Obstruction Urinary Catheter Date of Insertion: 05/02/20 Urinary Catheter Time of Insertion: 07:35 Date Urinary Catheter Removed: 05/02/20 Time Urinary Catheter Discontinued: 12:06 Data : 05/05/20 05:03 05/05/20 05:03 A&P Additional A&P Information Postop day #3. Of posterior lumbar interbody fusion revision L4-S1. Plan is to get him some MiraLAX continue with therapy with a goal of being discharged home on Thursday he will likely need a hospital bed this all needs to be set up with spring encaser and he will likely need a home health nurse. Attestations Medical Necessity Statement*: pain Coding Level of Care Code Acute Program Host for Octavia Lobo
[2020-05-05] MEDS: aspirin 325 mg Tablet PO (09:16)
[2020-05-05] MEDS: docusate sodium 100 mg Capsule PO ×2 (09:16→17:58)
[2020-05-05] MEDS: atorvastatin 40 mg Tablet 20 MG PO (09:16)
[2020-05-05] MEDS: polyethylene glycol 3350 Pkt 17 gm PO (09:16)
[2020-05-05 10:42] LABS: Glucose Point of Care 306 mg/dL (70-110)
--- NOTE | 2020-05-05 11:56 | PM.PN ---
Subjective Subjective: Interval history: 69-year-old male with a past medical history significant for diabetes mellitus, hypertension, nonobstructive carotid arterial disease, who was admitted to the hospital and taken for L4/5 fusion, L4 laminectomy and removal of deep hardware from L5/S1 on 05/02/2020. Medicine was consulted for medical management. Post operative course was complicated with persistent lumbar pain and difficulty ambulating. CT of thoracic spine was performed which showed postsurgical changes. Circumferential hypertrophic bone formation surrounding the thoracic cord at the T10-11 level causing a moderate central and bilateral foraminal stenosis. Laminectomy defect remains patent without bony encasement at the mid T11 level and my central stenosis at T7-8. MRI was ordered however pending. Due to difficult urination patient had snowden placed. 05/04/20 Patient was seen early in the morning during which time he was wanting to stand to use the restroom. Stated he was having difficulty urinating lying flat. During this time patient became acutely short of breath and diaphoretic. Vitals were stable however. oxygen saturation remained above 92. EKG performed did not show any evidence of acute ischemia. Appeared to be normal sinus rhythm. Denied pleuritic chest pain. Patient stated he felt as if he was about to pass out. No LOC. Suspected to have possible orthostatis. 05/05/20 No overnight events. Denied any recurrence of dyspnea. No chest pain, nausea or vomiting. Medications: Reviewed: Yes Vitals/I&O/Wt Last Vital Signs Temp 99.0 F 05/05/20 11:46 Pulse 68 05/05/20 11:46 Resp 19 H 05/05/20 11:46 BP 101/65 05/05/20 11:46 Pulse Ox 94 05/05/20 11:46 05/04/20 05/05/20 05/05/20 22:59 06:59 14:59 Intake Total 480 / 720 360 / 360 Output Total 2500 / 4200 775 / 4975 Balance -2019 / -3480 -775 / -4255 360 / 360 Physical Exam Narrative: EXAM NARRATIVE: Alert, awake, NAD HEENT; Grossly unremakeble CVS: Regular rate and rhythm no murmurs Chest- symmetrical expansion of bilateral chest, non-labored Abdomen- soft non-tender non-distended Extremities-no significant edema Const: COMMON NORMALS: patient oriented x3 HENMT: COMMON NORMALS: normocephalic and atraumatic HEAD & SCALP: normocephalic and atraumatic Eye: COMMON NORMALS: no scleral icterus GENERAL EYE: appearance normal, both eyes and all related structures Chest: CHEST: Yes Symmetrical chest wall rise Resp: COMMON NORMALS: normal respiratory effort and clear to auscultation bilaterally EFFORT & INSPECTION: Yes symmetric chest movement AUSCULTATION: clear to auscultation bilaterally Cardio: COMMON NORMALS: regular rate, regular rhythm, S1 normal heart sound present, S2 normal heart sound present, No gallops present (Cardio), No murmurs present (Cardio), No rub (Cardio) and Peripheral pulses 2+ throughout RATE: regular rate RHYTHM: regular rhythm HEART SOUNDS: S1 normal heart sound present and S2 normal heart sound present PERIPHERAL PULSES: Peripheral pulses 2+ throughout GI: COMMON NORMALS: Normal to inspection, nondistended, normoactive bowel sounds present, Soft to palpation, non-tender, No hepatosplenomegaly present and no masses AUSCULTATION: Yes normoactive bowel sounds PALPATION: Yes Soft to palpation and Yes No hepatosplenomegaly present RECTAL EXAM: Yes deferred Extremity: COMMON NORMALS: no clubbing, cyanosis or edema and no pedal edema Neuro: COMMON NORMALS: patient oriented x3 Urinary Catheter Management^: F: Cath Placed During This Visit: yes, but has since been removed by the nurse Reason for Continuing Indwelling Catheter: Acute Urinary Retention or Obstruction Urinary Catheter Date of Insertion: 05/02/20 Urinary Catheter Time of Insertion: 07:35 Date Urinary Catheter Removed: 05/02/20 Time Urinary Catheter Discontinued: 12:06 Data : 05/05/20 05:03 05/05/20 05:03 A&P Assessment and plan (1) Dyspnea: Status: Acute (2) Lumbar radiculopathy: Status: Acute (3) Hypertension: Status: Acute (4) Diabetes mellitus: Status: Acute (5) Dyslipidemia: Status: Acute Chest x-ray - No acute abnormality Supplemental oxygen as needed Saline lock IVF May consider lasix Snowden placement due to difficulty urination - > sig output Will start on flomax 0.4 mg daily Attempt Snowden removal prior to discharge Pain control Continue current medication Post op management per ortho Bowel regimen Anticipate discharge on Thursday as per spine surgery note Attestations Medical Necessity Statement*: Will require further hospitalization for post op care as per primary team Time Spent in Patient Care: Greater than 35 minutes Coding Level of Care Code Acute Vocational Guidance Counselor for g Fwd Diagnoses Dyspnea R06.00 Lumbar radiculopathy M54.16 Hypertension I10 Diabetes mellitus E11.9 Dyslipidemia E78.5
[2020-05-05 17:19] LABS: Glucose Point of Care 242 mg/dL (70-110)
[2020-05-05 20:24] LABS: Glucose Point of Care 188 mg/dL (70-110)
[2020-05-06] VITALS (9 sets, daily range): BP systolic 117–190; BP diastolic 60–82; PULSE 64–83; RESP 16–20; TEMP 36.5–37.2; O2SAT 95–98
[2020-05-06] MEDS: HYDROcodone-acetaminophen 5-325 mg Tablet PO ×4 (01:41→22:04)
[2020-05-06] MEDS: oxyCODONE 5 mg IR Tab/Cap 10 MG PO ×3 (04:33→20:38)
[2020-05-06] MEDS: enoxaparin 40 mg/0.4 mL Syringe SUBCUT (06:08)
[2020-05-06 07:09] LABS: Glucose Point of Care 168 mg/dL (70-110)
[2020-05-06] MEDS: docusate sodium 100 mg Capsule PO ×2 (08:46→15:43)
[2020-05-06] MEDS: lisinopril 20 mg Tablet 40 MG PO (08:46)
[2020-05-06] MEDS: tamsulosin 0.4 mg Capsule PO (08:47)
[2020-05-06] MEDS: aspirin 325 mg Tablet PO (08:47)
[2020-05-06] MEDS: atorvastatin 40 mg Tablet 20 MG PO (08:47)
--- NOTE | 2020-05-06 09:11 | P.PN_ITS ---
Subjective Subjective: Interval history: Patient continues to complain of shortness of breath. He is satting 97% currently. Pain in his back has significantly improved. Vitals/I&O/Wt Last Vital Signs Temp 98.7 F 05/06/20 07:59 Pulse 71 05/06/20 07:59 Resp 18 05/06/20 07:59 BP 190/81 05/06/20 07:59 Pulse Ox 98 05/06/20 07:59 05/05/20 05/06/20 05/06/20 22:59 06:59 14:59 Intake Total 0 / 480 500 / 980 240 / 240 Output Total 1300 / 1300 640 / 1940 Balance -1300 / -820 -140 / -960 240 / 240 Physical Exam Narrative: EXAM NARRATIVE: 5-5 strength bilateral lower extremities sensation intact moving toes. Urinary Catheter Management^: F: Cath Placed During This Visit: yes, but has since been removed by the nurse Reason for Continuing Indwelling Catheter: Acute Urinary Retention or Obstruction Urinary Catheter Date of Insertion: 05/02/20 Urinary Catheter Time of Insertion: 07:35 Date Urinary Catheter Removed: 05/02/20 Time Urinary Catheter Discontinued: 12:06 Data : 05/05/20 05:03 05/05/20 05:03 A&P Additional A&P Information Postop day #4 revision L4-S1 posterior spine fusion. Plan today is to continue getting him up with physical therapy continue to monitor his shortness of breath. Attestations Medical Necessity Statement*: SOB Coding Level of Care Code Acute Pharmacy Service Associate for Octavia Lobo
[2020-05-06] MEDS: polyethylene glycol 3350 Pkt 17 gm PO (09:24)
[2020-05-06] MEDS: ALPRAZolam 0.25 mg Tablet PO ×2 (10:48→20:39)
[2020-05-06 10:55] LABS: Glucose Point of Care 194 mg/dL (70-110)
--- NOTE | 2020-05-06 14:21 | PM.PN ---
Subjective Subjective: Interval history: No new clinical events overnight. Feeling anxious this am. Requesting hospital bed for home Medications: Reviewed: Yes Vitals/I&O/Wt Last Vital Signs Temp 99.0 F 05/06/20 11:11 Pulse 83 05/06/20 11:11 Resp 18 05/06/20 11:11 BP 139/72 05/06/20 11:11 Pulse Ox 97 05/06/20 11:11 05/05/20 05/06/20 05/06/20 22:59 06:59 14:59 Intake Total 0 / 480 500 / 980 240 / 240 Output Total 1300 / 1300 640 / 1940 Balance -1300 / -820 -140 / -960 240 / 240 Physical Exam Narrative: EXAM NARRATIVE: Alert, awake, NAD HEENT; Grossly unremakeble CVS: Regular rate and rhythm no murmurs Chest- symmetrical expansion of bilateral chest, non-labored Abdomen- soft non-tender non-distended Extremities-no significant edema Const: COMMON NORMALS: patient oriented x3 HENMT: COMMON NORMALS: normocephalic and atraumatic HEAD & SCALP: normocephalic and atraumatic Eye: COMMON NORMALS: no scleral icterus GENERAL EYE: appearance normal, both eyes and all related structures Chest: CHEST: Yes Symmetrical chest wall rise Resp: COMMON NORMALS: normal respiratory effort and clear to auscultation bilaterally EFFORT & INSPECTION: Yes symmetric chest movement AUSCULTATION: clear to auscultation bilaterally Cardio: COMMON NORMALS: regular rate, regular rhythm, S1 normal heart sound present, S2 normal heart sound present, No gallops present (Cardio), No murmurs present (Cardio), No rub (Cardio) and Peripheral pulses 2+ throughout RATE: regular rate RHYTHM: regular rhythm HEART SOUNDS: S1 normal heart sound present and S2 normal heart sound present PERIPHERAL PULSES: Peripheral pulses 2+ throughout GI: COMMON NORMALS: Normal to inspection, nondistended, normoactive bowel sounds present, Soft to palpation, non-tender, No hepatosplenomegaly present and no masses AUSCULTATION: Yes normoactive bowel sounds PALPATION: Yes Soft to palpation and Yes No hepatosplenomegaly present RECTAL EXAM: Yes deferred Extremity: COMMON NORMALS: no clubbing, cyanosis or edema and no pedal edema Neuro: COMMON NORMALS: patient oriented x3 Urinary Catheter Management^: F: Cath Placed During This Visit: yes, but has since been removed by the nurse Reason for Continuing Indwelling Catheter: Acute Urinary Retention or Obstruction Urinary Catheter Date of Insertion: 05/02/20 Urinary Catheter Time of Insertion: 07:35 Date Urinary Catheter Removed: 05/02/20 Time Urinary Catheter Discontinued: 12:06 Data : 05/05/20 05:03 05/05/20 05:03 A&P Assessment and plan (1) Dyspnea: Status: Acute (2) Lumbar radiculopathy: Status: Acute (3) Hypertension: Status: Acute (4) Diabetes mellitus: Status: Acute (5) Dyslipidemia: Status: Acute No further respiratory issues low dose xanax 0.25 mg PO TID PRN Snowden placement due to difficulty urination - > sig output Continue flomax 0.4 mg daily Attempt Snowden removal prior to discharge May consider snowden at discharge with outpatient urology follow up Pain control Continue current medication Post op management per ortho Bowel regimen Anticipate discharge on Thursday as per spine surgery note Attestations Medical Necessity Statement*: Will require further hospitalization for IV pain control as per primary team Time Spent in Patient Care: Greater than 35 minutes (>than 50% of time spent in counselling and/or direct pt care on unit). Coding Level of Care Code Acute Upholstery Department Supervisor for Octavia Lobo Diagnoses Dyspnea R06.00 Lumbar radiculopathy M54.16 Hypertension I10 Diabetes mellitus E11.9 Dyslipidemia E78.5
[2020-05-06 17:17] LABS: Glucose Point of Care 226 mg/dL (70-110)
[2020-05-06 20:20] LABS: Glucose Point of Care 191 mg/dL (70-110)
[2020-05-06] MEDS: gabapentin 300 mg Capsule PO (22:03)
[2020-05-07] VITALS (10 sets, daily range): BP systolic 114–158; BP diastolic 63–79; PULSE 74–100; RESP 16–19; TEMP 36.8–37.6; O2SAT 93–97
[2020-05-07] MEDS: oxyCODONE 5 mg IR Tab/Cap 10 MG PO ×2 (02:03→21:12)
[2020-05-07] MEDS: HYDROcodone-acetaminophen 5-325 mg Tablet PO ×2 (05:18→17:30)
[2020-05-07] MEDS: enoxaparin 40 mg/0.4 mL Syringe SUBCUT (05:18)
[2020-05-07 06:55] LABS: Glucose Point of Care 187 mg/dL (70-110)
--- NOTE | 2020-05-07 07:47 | PM.PN ---
Subjective Subjective: Interval history: Patient doing much better today. Pain is controlled. Vitals/I&O/Wt Last Vital Signs Temp 98.2 F 05/07/20 04:00 Pulse 74 05/07/20 04:00 Resp 18 05/07/20 04:00 BP 152/69 05/07/20 04:00 Pulse Ox 96 05/07/20 04:00 05/06/20 05/07/20 05/07/20 22:59 06:59 14:59 Intake Total 440 / 680 500 / 1180 Output Total 450 / 450 Balance -10 / 230 500 / 730 Physical Exam Narrative: EXAM NARRATIVE: 5 out of 5 strength bilateral lower extremities sensation intact. Urinary Catheter Management^: F: Cath Placed During This Visit: yes, but has since been removed by the nurse Reason for Continuing Indwelling Catheter: Acute Urinary Retention or Obstruction Urinary Catheter Date of Insertion: 05/02/20 Urinary Catheter Time of Insertion: 07:35 Date Urinary Catheter Removed: 05/02/20 Time Urinary Catheter Discontinued: 12:06 Data : 05/05/20 05:03 05/05/20 05:03 A&P Additional A&P Information Status post revision L4-S1 posterior spine fusion. Plan is to attempt to DC the Rojas today. If he tolerates it we will leave it out. He does not tolerate it then we will put it back in and get a urology consult. Plan is to discharge the patient tomorrow. We will consult with administrator social welfare to get hospital bed and home health nurse for home. Attestations Medical Necessity Statement*: Urologic issues and set up with home health. Coding Level of Care Code Acute Batch Weigher for Octavia Lobo
[2020-05-07] MEDS: atorvastatin 40 mg Tablet 20 MG PO (09:26)
[2020-05-07] MEDS: lisinopril 20 mg Tablet 40 MG PO (09:27)
[2020-05-07] MEDS: polyethylene glycol 3350 Pkt 17 gm PO (09:28)
--- NOTE | 2020-05-07 09:35 | PC.SOCIAL ---
IMM Updated Page 2 of IMM updated and given to patient. Initialed, dated, and timed and placed back in chart.
[2020-05-07] MEDS: docusate sodium 100 mg Capsule PO (09:37)
[2020-05-07] MEDS: aspirin 325 mg Tablet PO (09:37)
[2020-05-07] MEDS: tamsulosin 0.4 mg Capsule PO (09:37)
[2020-05-07 12:17] LABS: Glucose Point of Care 219 mg/dL (70-110)
--- NOTE | 2020-05-07 14:54 | PM.PN ---
Subjective Subjective: Interval history: Hemodynamically stable, afebrile, on RA. POD # 5 s/p revision of L4-S1 posterior spine fusion. Rojas catheter discontinued this morning and has been able to void since. Has been ambulatory with walker to and from the door to his room. Has some pain but is trying to see if he can go a little longer without pain meds. Medications: Reviewed: Yes Medication Review Details: Active Medications Generic Name Dose Route Start Last Admin Trade Name Freq PRN Reason Stop Dose Admin Acetaminophen 650 mg 05/02/20 12:46 05/04/20 17:35 Acetaminophen 32 5 Mg Tablet PO 650 mg Q4H PRN Administration Mild Pain or feve r >101.5 Hydrocodone Bitart /Acetaminophen 1 - 2 tab 05/06/20 15:39 05/07/20 05:18 Hydrocodone-Acet aminophen 5-325 Mg Tablet PO 2 tab Q4H PRN Administration MODERATE TO SEVER E PAIN Al Hydrox/Mg [place] x/Simethicone 30 ml 05/02/20 12:46 05/03/20 20:25 Xcjg-Zmx-Jbhhoah de-Demterio 30 Ml Udc PO 30 ml Q4H PRN Administration INDIGESTION Albuterol Sulfate 2.5 mg 05/02/20 06:04 Albuterol 2.5 Mg /0.5 Ml Neb INHALATION ONCE PRN WHEEZING Albuterol/Ipratrop ium 3 ml 05/02/20 14:50 05/04/20 05:30 Ipratropium-Albu terol 3 Ml Neb INHALATION 3 ml Q6H PRN Administration SHORTNESS OF JULISA TH Alprazolam 0.25 mg 05/06/20 10:07 05/06/20 20:39 Alprazolam 0.25 Mg Tablet PO 0.25 mg TID PRN Administration ANXIETY Aspirin 325 mg 05/03/20 09:00 05/07/20 09:37 Aspirin 325 Mg T ablet PO 325 mg DAILY JAYSON Administration Atorvastatin Calci um 20 mg 05/03/20 09:00 05/07/20 09:26 Atorvastatin 40 Mg Tablet PO 20 mg DAILY JAYSON Administration Dextrose 25 ml 05/02/20 14:55 Dextrose 50% Syr joseph 50 Ml IVP ONCE PRN hypoglycemia prot ocol Protocol Dextrose 50 ml 05/02/20 14:55 Dextrose 50% Syr joseph 50 Ml IVP PRN PRN hypoglycemia prot ocol Protocol Docusate Sodium 100 mg 05/02/20 18:00 05/07/20 09:37 Docusate Sodium 100 Mg Capsule PO 100 mg BID JAYSON Administration Enoxaparin Sodium 40 mg 05/03/20 06:00 05/07/20 05:18 Enoxaparin 40 Mg /0.4 Ml Syringe SUBCUT 40 mg Q24H JAYSON Administration Gabapentin 300 mg 05/02/20 13:39 05/06/20 22:03 Gabapentin 300 M g Capsule PO 300 mg PRN PRN Administration Pain Glucagon 1 mg 05/02/20 14:55 Glucagon 1 Mg/Ml Inj 1 Ml IM ONCE PRN Adult Acute Hypog lycemia Prot. Protocol Dextrose 500 mls @ 100 mls /hr 05/02/20 14:55 D5w IV ONCE PRN Adult Acute Hypog lycemia Prot Protocol Insulin Aspart 0 unit 05/02/20 18:00 05/07/20 12:39 Insulin Aspart 1 00 Unit/1 Ml SUBCUT 4 unit WM&BEDTIME JAYSON Administration Protocol Lisinopril 40 mg 05/03/20 09:00 05/07/20 09:27 Lisinopril 20 Mg Tablet PO 40 mg DAILY JAYSON Administration Ondansetron HCl 4 mg 05/02/20 07:17 Ondansetron 2 Mg /Ml Sdv 2 Ml IVP Q15M PRN Nausea/Vomiting P ACU PHASE II Ondansetron HCl 4 mg 05/02/20 12:46 Ondansetron 2 Mg /Ml Sdv 2 Ml IVP Q6H PRN NAUSEA AND VOMITI NG Oxycodone HCl 10 mg 05/06/20 04:23 05/07/20 02:03 Oxycodone 5 Mg I r Tab/Cap PO 10 mg Q6H PRN Administration SEVERE PAIN Polyethylene Glyco l 17 gm 05/04/20 13:19 05/04/20 15:26 Polyethylene Gly col 3350 Pkt 17 Gm PO 17 gm DAILY PRN Administration CONSTIPATION Polyethylene Glyco l 17 gm 05/05/20 09:00 05/07/20 09:28 Polyethylene Gly col 3350 Pkt 17 Gm PO 17 gm DAILY JAYSON Administration Tamsulosin HCl 0.4 mg 05/06/20 09:00 05/07/20 09:37 Tamsulosin 0.4 M g Capsule PO 0.4 mg DAILY JAYSON Administration No Known Allergies Allergy (Verified 04/27/20 11:00) Vitals/I&O/Wt Last Vital Signs Temp 99.6 F 05/07/20 12:00 Pulse 77 05/07/20 12:00 Resp 17 05/07/20 12:00 BP 139/72 05/07/20 12:00 Pulse Ox 97 05/07/20 12:00 05/06/20 05/07/20 05/07/20 22:59 06:59 14:59 Intake Total 440 / 680 500 / 1180 220 / 220 Output Total 450 / 450 250 / 250 Balance -10 / 230 500 / 730 -30 / -30 Physical Exam Const: COMMON NORMALS: no acute distress, patient oriented x3 and alert GENERAL APPEARANCE: cooperative and comfortable ORIENTATION/CONSCIOUSNESS: Yes awake OTHER: -looks younger than stated age HENMT: COMMON NORMALS: normocephalic, atraumatic, hearing grossly normal bilaterally and moist oral mucous membranes HEAD & SCALP: normocephalic and atraumatic Eye: COMMON NORMALS: Equal, round and reactive pupils present, EOMs intact bilaterally and conjunctivae normal CONJUNCTIVA: Yes conjunctivae normal PUPIL: Yes Equal, round and reactive pupils present Neck/C-Spine: COMMON NORMALS: full ROM GENERAL: Yes normal visual inspection and Yes trachea midline Resp: COMMON NORMALS: normal respiratory effort, No retractions, No use of accessory muscles and clear to auscultation bilaterally EFFORT & INSPECTION: Yes able to speak in complete sentences, Yes symmetric chest movement and No tachypneic AUSCULTATION: clear to auscultation bilaterally Cardio: COMMON NORMALS: regular rate, regular rhythm, S1 normal heart sound present, S2 normal heart sound present and No murmurs present (Cardio) RATE: regular rate RHYTHM: regular rhythm HEART SOUNDS: S1 normal heart sound present and S2 normal heart sound present GI: COMMON NORMALS: Normal to inspection, nondistended, normoactive bowel sounds present, Soft to palpation and non-tender PALPATION: Yes Soft to palpation Extremity: COMMON NORMALS: normal to inspection, full ROM and no clubbing, cyanosis or edema; negative for no pedal edema Neuro: COMMON NORMALS: patient oriented x3, moves all extremities, no focal motor deficits and no sensory deficits noted SENSORIUM/ORIENTATION: Yes alert Psych: COMMON NORMALS: mental status grossly normal, Normal thought process present, cooperative, normal affect and speech normal SPEECH: Yes normal speech THOUGHT PROCESS: Normal thought process present Skin: COMMON NORMALS: no rashes or lesions noted, no jaundice, no petechiae and no mottling GENERAL SKIN EXAM: no rashes or lesions noted Urinary Catheter Management^: F: Cath Placed During This Visit: yes, but has since been removed by the nurse Reason for Continuing Indwelling Catheter: Decision to DC Catheter Urinary Catheter Date of Insertion: 05/02/20 Urinary Catheter Time of Insertion: 07:35 Date Urinary Catheter Removed: 05/07/20 Time Urinary Catheter Discontinued: 08:28 Data : 05/05/20 05:03 05/05/20 05:03 A&P Assessment and plan (1) Lumbar radiculopathy: -s/p revision L4-S1 posterior spine fusion; POD # [address] Lau -pain control as needed -PT evaluation appreciated Status: Acute (2) Dyslipidemia: -continue statin Status: Chronic (3) Hypertension: -VSS; continue to monitor -continue oral antihypertensives Status: Chronic Qualifiers: Hypertension type: essential hypertension Qualified Code(s): I10 - Essential (primary) hypertension (4) CAD (coronary artery disease): -continue ASA, statin Status: Chronic Qualifiers: Associated angina: angina presence unspecified Coronary Disease-Associated Artery/Lesion type: [place] artery [place] vs. transplanted heart: [place] heart Qualified Code(s): I25.10 - Atherosclerotic heart disease of [place] coronary artery without angina pectoris (5) Carotid stenosis: -s/p L CEA (05/2015) -follows up with Dr. Pang Status: Chronic Qualifiers: Laterality: unspecified laterality Qualified Code(s): I65.29 - Occlusion and stenosis of unspecified carotid artery Additional A&P Information -regular diet as tolerated -DVT ppx with Lovenox -bowel regimen -Dispo: home with HH; hospital bed ordered due to need for special positioning s/p surgery that is not feasible with an ordinary bed including elevation of the head of the bed for pain control -Code status: FULL code -Anticipate discharge tomorrow if appropriate Attestations Medical Necessity Statement*: Patient requires hospitalization for continued pain control s/p back surgery, pending appropriate disposition. Time Spent in Patient Care: 16 - 35 minutes (>than 50% of time spent in counselling and/or direct pt care on unit). Coding Level of Care Code Acute Flight Attendant/Inflight Supervisor for Chg Fwd Exam Comprehensive Diagnoses Lumbar radiculopathy M54.16 Dyslipidemia E78.5 Hypertension I10 Hypertension type: essential hypertension CAD (coronary artery disease) I25.10 Associated angina: angina presence unspecified Coronary Disease-Associated Artery/Lesion type: [place] artery [place] vs. transplanted heart: [place] heart Carotid stenosis I65.29 Laterality: unspecified laterality
[2020-05-07 17:24] LABS: Glucose Point of Care 195 mg/dL (70-110)
[2020-05-07] MEDS: ALPRAZolam 0.25 mg Tablet PO (21:13)
[2020-05-07 21:46] LABS: Glucose Point of Care 205 mg/dL (70-110)
[2020-05-08 00:26] VITALS: BP 133/71; PULSE 68; RESP 18; TEMP 37.1; O2SAT 97
[2020-05-08] MEDS: gabapentin 300 mg Capsule PO (00:33)
[2020-05-08] MEDS: HYDROcodone-acetaminophen 5-325 mg Tablet PO ×3 (00:34→12:00)
[2020-05-08 04:10] VITALS: BP 137/73; PULSE 84; RESP 18; TEMP 36.8; O2SAT 94
[2020-05-08] MEDS: enoxaparin 40 mg/0.4 mL Syringe SUBCUT (06:19)
[2020-05-08 06:21] LABS: Glucose Point of Care 181 mg/dL (70-110)
[2020-05-08 08:00] VITALS: BP 126/75; PULSE 69; RESP 18; TEMP 37.2; O2SAT 96
--- NOTE | 2020-05-08 08:00 | PM.DCS ---
Discharge Providers Date of Admission: 05/02/20 05:46 Date of Discharge: May 08, 2020 Attending Provider at Admission: Milind Lau DO Attending Provider at Discharge: Milind Lau DO Primary Care Provider: Dirk Senior DO Diagnoses at Discharge Discharge Diagnosis (1) Lumbar radiculopathy: Status: Acute (2) Dyslipidemia: Status: Chronic (3) Hypertension: Status: Chronic Qualifiers: Hypertension type: essential hypertension Qualified Code(s): I10 - Essential (primary) hypertension (4) CAD (coronary artery disease): Status: Chronic Qualifiers: Coronary Disease-Associated Artery/Lesion type: [place] artery [place] vs. transplanted heart: [place] heart Associated angina: angina presence unspecified Qualified Code(s): I25.10 - Atherosclerotic heart disease of [place] coronary artery without angina pectoris (5) Carotid stenosis: Status: Chronic Qualifiers: Laterality: unspecified laterality Qualified Code(s): I65.29 - Occlusion and stenosis of unspecified carotid artery Reason for Visit Reason for Visit: Lumbar stenosis Hospital Course Hospital Course Patient had a L4-S1 revision posterior lumbar interbody fusion. On May 02. Patient was admitted he stayed through the week and for pain control and to work with physical therapy. On Thursday the we arrange for a hospital bed in order for him to go home. We also got home health with physical therapy occupational therapy to ensure that he is doing his exercises and taking care of. He will be discharged on May 08. Physical Exam Narrative: EXAM NARRATIVE: Patient's pain control is 5/5 strength sensation is intact. Wounds clean dry and intact. Urinary Catheter Management^: F: Cath Placed During This Visit: yes, but has since been removed by the nurse Reason for Continuing Indwelling Catheter: Decision to DC Catheter Urinary Catheter Date of Insertion: 05/02/20 Urinary Catheter Time of Insertion: 07:35 Date Urinary Catheter Removed: 05/07/20 Time Urinary Catheter Discontinued: 08:28 Discharge Data Data Completed and Pending: Completed Studies During Hospitalization Category Date Time Status CT thoracic spin wo con* [id number] Rout ine Cat Scan 05/03/20 07:26 Completed CXRP [XR chest 1V portable [id number]] S tat Exams 05/04/20 05:55 Completed XR lumbar spine 2 -3V* [id number] Routine Exams 05/02/20 Completed XR lumbar spine 2 -3V* [id number] Routine Exams 05/02/20 12:48 Completed Labs from last 24 hours 05/08/20 05/07/20 05/07/20 06:15 21:15 17:03 POC Glucose 181 205 195 05/07/20 12:13 POC Glucose 219 Vitals: Last Vital Signs Temp 98.2 F 05/08/20 04:10 Pulse 84 05/08/20 04:10 Resp 18 05/08/20 04:10 BP 137/73 05/08/20 04:10 Pulse Ox 94 05/08/20 04:10 Discharge Plan Discharge Patient Disposition: Home Health Service Condition: Stable Prescriptions: New polyethylene glycol 3350 17 gram Powder In Packet 17 g PO DAILY PRN (Reason: Constipation) Qty: 30 RF: 0 hydrocodone-acetaminophen 5-325 mg Tablet 1 - 2 tab PO Q4H PRN (Reason: Moderate To Severe Pain) Qty: 60 RF: 0 docusate sodium 100 mg Capsule 100 mg PO BID Qty: 30 RF: 0 Continued lisinopril 40 mg tablet 40 mg PO DAILY RF: 0 aspirin 325 mg tablet 325 mg PO DAILY RF: 0 lovastatin 40 mg tablet 40 mg PO DAILY RF: 0 gabapentin 600 mg tablet 300 mg PO PRN PRN (Reason: Pain) RF: 0 Discharge Orders: Discharge Order (Routine); Ordered 05/08/20 Ordered By: Milind Lau Other Ambulatory Orders: DME: Hospital Bed (Order) Location: None Selected Ordered By: Milind Lau Referrals: [facility] [place] [Outside] [facility] [Outside] Discharge Diet: Usual diet Discharge Activity: Limit activity as instructed Activity Restrictions/Additional Instructions: Thank you for [facility] for your care! The following is a list of instructions, from your provider, to follow upon your discharge to ensure you have the optimal recovery from your recent injury orsurgery. Follow-up care is a rayo part of your treatment and safety. Be sure to make and go to all appointments, and call your doctor if you are having problems. If you do not already have a follow-up appointment made, call Dr. Lau office in the next 1-3 days to make follow up appointment for 1 weeks at [phone]. It is also a good idea to know your test results and keep a list of the medicines you take. Medications will be prescribed for you at your provider's discretion. These medications are to be used as instructed; if they are taken more often that prescribed they will not be refilled early and in most cases will not be refilled at all. > When a refill is needed,you should contact laura perez 2-3 business days before your prescription runs out. Medications will NOT be refilled by operations research director providers after hours! > Many pain medications contain Tylenol (Acetaminophen). Do not consume more than 4,000 mg of Tylenol per day in total with any combination ofmedications. > Pain medications can cause constipation. Please use an over the counter stool softener as directed, while taking pain medications. Consulty our local pharmacist with questions or recommendations on stool softeners. If constipation persists, contact our office or your primary care provider. > While under our care,you are not to receive pain medications or other controlled substances from any other provider unless our office is notified and approves. Any attempts to do so will result in refusal to prescribe any further pain medications and possible dismissal from our practice. ? Your wound and/or dressing should remain clean and dry for 2 days after surgery. On postoperative day 2 (48 hours after your surgery) the dressing (if present) should be removed and it is okay to shower and get the incision wet. Pad dry afterwards. No further dressing should be required from that point on. Do not put any creams or ointments on theincision > It is normal for there to be a small amount of discharge (bloody or blood tinged) present from a surgical wound for the first 1-3days. > The wound should be examined twice a day for signs of infection. Mild redness or bruising is to be expected but indications that an infection maybe starting would include; An increase in redness, swelling, or discharge, a foul odor present around the incision, and/or a fever greater than 101 ?F ? Showering is permitted, however we ask that you do not take a bath, sit in a whirlpool / Jacuzzi, or go swimming for 1 month. For only the first 2 days after surgery, lt wilt be necessary for you to cover your wound/dressing with plastic and tape to keep it dry. ? Walking is essential for the healing process after surgery. We would like you to slowly advance your walking. This should be done on relatively flat clear ground (inside or out) or can be done on a treadmill. Remember this goal does not have to happen all at once, slowly increase your distance and duration. This can be broken into more more than one walk per day as tolerated. Patients who walk as directed after surgery rarely require Physical Therapy. In the unlikely event this issue arises your provider will direct hospital staff to make the appropriate arrangements. ? No lifting over 5 pounds {a gallon of milk) or bending/twisting until further notice. Each of these activities places an unnecessary amount of stress onto the body and can impede the delicate healing process. > Instead of bending at the waist, keep your back straight and bend at the knees. > Instead of twisting your torso, keep your back straight and turn your entire body with your feet. ? You may sleep in any position which makes you comfortable. Many patients find comfort sleeping in a reclining chair. It is not abnormal to have difficulty sleeping for the first several weeks following your surgery. We recommend trying Benadry! or Tylenol PM as directed to help with your sleeping difficulties. Both medications are over the counter and available withoutprescription. ? NO SMOKING!!! Smoking dramatically increases the probability of developing postoperative wound infections. ? Common complaints after lumbar and/or thoracic spine surgery include, but are not limited to: numbness and/or tingling in the legs, pain around the incision and surrounding tissues, muscle spasms, or stiffness of the middle to low back. Contact our office if these symptoms persist or if an acute change occurs. ? No driving for the first 3-5days, and not while taking narcotics [] until seen at your follow-up appointment and cleared. There are no restrictions for riding on short trips, however if you take a longer trip, arrangements should be made to make regular stops to get out of the vehicle and stretch . ? Swelling is an unfortunate event that will take place with any surgery and is the primary source of your postoperative discomfort. While walking and regular approved activities helps control inflammation, there are additional steps you can take to minimizeswelling. > Place ice over the surgical site and surrounding tissue for twenty minutes, followed by applying a low/medium heat (heating pad) for an additional twenty minutes every 1-2 hours as needed for painrelief. > You may use of over the counter anti-inflammatory medications (Ibuprofen, Motrin, Aleve, Advil, etc) as directed on the package label. These types of medicines wm significantly reduce the amount of discomfort you experience after surgery from swelling. It should be noted that if you have and allergy to any of these medications, or a history of ulcers or kidney disease you should consult you primary care provider prior to starting these medications. Discharge Attestations Time Spent in Discharge Care*: greater than 30 min Quality Metrics Clinical Quality Measures During this hospital stay, did patient experience: None Coding Level of Care Code Acute Passenger Agent for Chg Fwd Diagnoses Lumbar radiculopathy M54.16 Dyslipidemia E78.5 Hypertension I10 Hypertension type: essential hypertension CAD (coronary artery disease) I25.10 Coronary Disease-Associated Artery/Lesion type: [place] artery [place] vs. transplanted heart: [place] heart Associated angina: angina presence unspecified Carotid stenosis I65.29 Laterality: unspecified laterality
[2020-05-08] MEDS: lisinopril 20 mg Tablet 40 MG PO (08:19)
[2020-05-08] MEDS: aspirin 325 mg Tablet PO (08:20)
[2020-05-08] MEDS: atorvastatin 40 mg Tablet 20 MG PO (08:20)
[2020-05-08] MEDS: tamsulosin 0.4 mg Capsule PO (08:20)
--- NOTE | 2020-05-08 08:25 | P.PN_ITS ---
Subjective Subjective: Interval history: No changes overnight, hemodynamically stable, afebrile, on RA, BP better controlled today. Has continued to void independently with urine output of 750 mL. 1 BM overnight. Required 3 dose of hydrocodone and 1 dose of oxycodone for pain control overnight. Case discussed briefly with Dr. Lau this AM, plan for discharge today. Medications: Reviewed: Yes Medication Review Details: Active Medications Generic Name Dose Route Start Last Admin Trade Name Freq PRN Reason Stop Dose Admin Acetaminophen 650 mg 05/02/20 12:46 05/04/20 17:35 Acetaminophen 32 5 Mg Tablet PO 650 mg Q4H PRN Administration Mild Pain or feve r >101.5 Hydrocodone Bitart /Acetaminophen 1 - 2 tab 05/06/20 15:39 05/08/20 07:36 Hydrocodone-Acet aminophen 5-325 Mg Tablet PO 1 tab Q4H PRN Administration MODERATE TO SEVER E PAIN Al Hydrox/Mg [place] x/Simethicone 30 ml 05/02/20 12:46 05/03/20 20:25 Esob-Ppq-Ekcvqji de-Demetrio 30 Ml Udc PO 30 ml Q4H PRN Administration INDIGESTION Albuterol Sulfate 2.5 mg 05/02/20 06:04 Albuterol 2.5 Mg /0.5 Ml Neb INHALATION ONCE PRN WHEEZING Albuterol/Ipratrop ium 3 ml 05/02/20 14:50 05/04/20 05:30 Ipratropium-Albu terol 3 Ml Neb INHALATION 3 ml Q6H PRN Administration SHORTNESS OF JULISA TH Alprazolam 0.25 mg 05/06/20 10:07 05/07/20 21:13 Alprazolam 0.25 Mg Tablet PO 0.25 mg TID PRN Administration ANXIETY Aspirin 325 mg 05/03/20 09:00 05/08/20 08:20 Aspirin 325 Mg T ablet PO 325 mg DAILY JAYSON Administration Atorvastatin Calci um 20 mg 05/03/20 09:00 05/08/20 08:20 Atorvastatin 40 Mg Tablet PO 20 mg DAILY JAYSON Administration Dextrose 25 ml 05/02/20 14:55 Dextrose 50% Syr joseph 50 Ml IVP ONCE PRN hypoglycemia prot ocol Protocol Dextrose 50 ml 05/02/20 14:55 Dextrose 50% Syr joseph 50 Ml IVP PRN PRN hypoglycemia prot ocol Protocol Docusate Sodium 100 mg 05/02/20 18:00 05/08/20 08:25 Docusate Sodium 100 Mg Capsule PO Not Given BID JAYSON Enoxaparin Sodium 40 mg 05/03/20 06:00 05/08/20 06:19 Enoxaparin 40 Mg /0.4 Ml Syringe SUBCUT 40 mg Q24H JAYSON Administration Gabapentin 300 mg 05/02/20 13:39 05/08/20 00:33 Gabapentin 300 M g Capsule PO 300 mg PRN PRN Administration Pain Glucagon 1 mg 05/02/20 14:55 Glucagon 1 Mg/Ml Inj 1 Ml IM ONCE PRN Adult Acute Hypog lycemia Prot. Protocol Dextrose 500 mls @ 100 mls /hr 05/02/20 14:55 D5w IV ONCE PRN Adult Acute Hypog lycemia Prot Protocol Insulin Aspart 0 unit 05/02/20 18:00 05/08/20 08:20 Insulin Aspart 1 00 Unit/1 Ml SUBCUT 4 unit WM&BEDTIME JAYSON Administration Protocol Lisinopril 40 mg 05/03/20 09:00 05/08/20 08:19 Lisinopril 20 Mg Tablet PO 40 mg DAILY JAYSON Administration Ondansetron HCl 4 mg 05/02/20 07:17 Ondansetron 2 Mg /Ml Sdv 2 Ml IVP Q15M PRN Nausea/Vomiting P ACU PHASE II Ondansetron HCl 4 mg 05/02/20 12:46 Ondansetron 2 Mg /Ml Sdv 2 Ml IVP Q6H PRN NAUSEA AND VOMITI NG Oxycodone HCl 10 mg 05/06/20 04:23 05/07/20 21:12 Oxycodone 5 Mg I r Tab/Cap PO 10 mg Q6H PRN Administration SEVERE PAIN Polyethylene Glyco l 17 gm 05/04/20 13:19 05/04/20 15:26 Polyethylene Gly col 3350 Pkt 17 Gm PO 17 gm DAILY PRN Administration CONSTIPATION Polyethylene Glyco l 17 gm 05/05/20 09:00 05/08/20 08:25 Polyethylene Gly col 3350 Pkt 17 Gm PO Not Given DAILY JAYSON Tamsulosin HCl 0.4 mg 05/06/20 09:00 05/08/20 08:20 Tamsulosin 0.4 M g Capsule PO 0.4 mg DAILY JAYSON Administration No Known Allergies Allergy (Unknown, Unverified 05/07/20 15:55) Vitals/I&O/Wt Last Vital Signs Temp 99.0 F 05/08/20 08:00 Pulse 69 05/08/20 08:00 Resp 18 05/08/20 08:00 BP 126/75 05/08/20 08:00 Pulse Ox 96 05/08/20 08:00 05/07/20 05/08/20 05/08/20 22:59 06:59 14:59 Intake Total 400 / 620 Output Total 670 / 920 750 / 1670 200 / 200 Balance -270 / -300 -750 / -1050 -200 / -200 Physical Exam Const: COMMON NORMALS: no acute distress, patient oriented x3 and alert GENERAL APPEARANCE: cooperative and comfortable ORIENTATION/CONSCIOUSNESS: Yes awake OTHER: -looks younger than stated age HENMT: COMMON NORMALS: normocephalic, atraumatic, hearing grossly normal bilaterally and moist oral mucous membranes HEAD & SCALP: normocephalic and atraumatic Eye: COMMON NORMALS: Equal, round and reactive pupils present, EOMs intact bilaterally and conjunctivae normal CONJUNCTIVA: Yes conjunctivae normal PUPIL: Yes Equal, round and reactive pupils present Neck/C-Spine: COMMON NORMALS: full ROM GENERAL: Yes normal visual inspection and Yes trachea midline Resp: COMMON NORMALS: normal respiratory effort, No retractions, No use of accessory muscles and clear to auscultation bilaterally EFFORT & INSPECTION: Yes able to speak in complete sentences, Yes symmetric chest movement and No tachypneic AUSCULTATION: clear to auscultation bilaterally Cardio: COMMON NORMALS: regular rate, regular rhythm, S1 normal heart sound present, S2 normal heart sound present and No murmurs present (Cardio) RATE: regular rate RHYTHM: regular rhythm HEART SOUNDS: S1 normal heart sound present and S2 normal heart sound present GI: COMMON NORMALS: Normal to inspection, nondistended, normoactive bowel sounds present, Soft to palpation and non-tender PALPATION: Yes Soft to palpation Extremity: COMMON NORMALS: normal to inspection, full ROM and no clubbing, cy anosis or edema; negative for no pedal edema Neuro: COMMON NORMALS: patient oriented x3, moves all extremities, no focal motor deficits and no sensory deficits noted SENSORIUM/ORIENTATION: Yes alert Psych: COMMON NORMALS: mental status grossly normal, Normal thought process present, cooperative, normal affect and speech normal SPEECH: Yes normal speech THOUGHT PROCESS: Normal thought process present Skin: COMMON NORMALS: no rashes or lesions noted, no jaundice, no petechiae and no mottling GENERAL SKIN EXAM: no rashes or lesions noted Urinary Catheter Management^: F: Cath Placed During This Visit: yes, but has since been removed by the nurse Reason for Continuing Indwelling Catheter: Decision to DC Catheter Urinary Catheter Date of Insertion: 05/02/20 Urinary Catheter Time of Insertion: 07:35 Date Urinary Catheter Removed: 05/07/20 Time Urinary Catheter Discontinued: 08:28 Data : 05/05/20 05:03 05/05/20 05:03 A&P Assessment and plan (1) Lumbar radiculopathy: -s/p revision L4-S1 posterior spine fusion; POD # [address] Lau -pain control as needed -PT evaluation appreciated Status: Acute (2) Dyslipidemia: -continue statin Status: Chronic (3) Hypertension: -VSS; continue to monitor -continue oral antihypertensives Status: Chronic Qualifiers: Hypertension type: essential hypertension Qualified Code(s): I10 - Essential (primary) hypertension (4) CAD (coronary artery disease): -continue ASA, statin Status: Chronic Qualifiers: Associated angina: angina presence unspecified Coronary Disease- Associated Artery/Lesion type: [place] artery [place] vs. transplanted heart: [place] heart Qualified Code(s): I25.10 - Atherosclerotic heart disease of [place] coronary artery without angina pectoris (5) Carotid stenosis: -s/p L CEA (05/2015) -follows up with Dr. Pang Status: Chronic Qualifiers: Laterality: unspecified laterality Qualified Code(s): I65.29 - Occlusion and stenosis of unspecified carotid artery Additional A&P Information -regular diet as tolerated -DVT ppx with Lovenox -bowel regimen -Dispo: home with HH; hospital bed ordered due to need for special positioning s/p surgery that is not feasible with an ordinary bed including elevation of the head of the bed for pain control -Code status: FULL code Attestations Medical Necessity Statement*: Discharge home today. Time Spent in Patient Care: 16 - 35 minutes (>than 50% of time spent in counselling and/or direct pt care on unit) . Coding Level of Care Code Acute Utility Spray Operator for Chg Fwd Exam Comprehensive Diagnoses Lumbar radiculopathy M54.16 Dyslipidemia E78.5 Hypertension I10 Hypertension type: essential hypertension CAD (coronary artery disease) I25.10 Associated angina: angina presence unspecified Coronary Disease-Associated Artery/Lesion type: [place] artery [place] vs. transplanted heart: [place] heart Carotid stenosis I65.29 Laterality: unspecified laterality
[2020-05-08 11:53] VITALS: BP 108/66; PULSE 73; RESP 19; TEMP 37.2; O2SAT 97
[2020-05-08 11:59] LABS: Glucose Point of Care 269 mg/dL (70-110)
[2020-05-08 13:34] VITALS: RESP 18; O2SAT 97
[2020-05-08] MEDS: oxyCODONE 5 mg IR Tab/Cap 10 MG PO (13:34)
--- NOTE | 2020-05-08 13:49 | PC.NURSE ---
Patient's girlfriend is going to stay with him for a few days and will check in on him daily. Discharge instructions given to patient, all questions answered. Patient discharged at this time. Patient left via wheelchair in stable condition.
[2020-05-08 13:52] VITALS: BP 108/66; PULSE 73; RESP 18; TEMP 37.2; O2SAT 97
== END 2020-05-08 13:54 | disposition home health service (06) | DRG 460 ==
PROVIDERS: Internal Medicine; Admitting Provider Orthopaedic Surgery; PCP Electrodiagnostic Medicine; Visit Provider Orthopaedic Surgery
PROC: 0SG00AJ Fusion of Lumbar Vertebral Joint with Interbody Fusion Device, Posterior Approach, Anterior Column, Open Approach (ICD-10-PCS; principal; 2020-05-02 07:00)
DX: M54.16 Radiculopathy, lumbar region (principal); E11.9 Type 2 diabetes mellitus without complications; I10 Essential (primary) hypertension; I25.10 Atherosclerotic heart disease of native coronary artery without angina pectoris; Z95.5 Presence of coronary angioplasty implant and graft; F17.210 Nicotine dependence, cigarettes, uncomplicated; M48.04 Spinal stenosis, thoracic region; E78.5 Hyperlipidemia, unspecified; R06.00 Dyspnea, unspecified; Z98.1 Arthrodesis status
CPT/HCPCS: 12345; 36415; 36416; 51702; 71045; 72100; 72128; 76000; 80048; 82962; 85025; 93005; 94640; 94660; 96372; 96375; 97161; 97530; C1713; C9359; J0131; J0690; J1644; J1650; J1815; J1885; J2370; J2405; J2704; J3010; J3490; J7030

== ENCOUNTER 2020-06-20 14:15 | Outpatient (CLI) | payer MEDICARE, OTHER, SELFPAY ==
--- NOTE | 2020-06-20 14:47 | MR_ITS ---
WS: [id number] MRI HEAD WITH CONTRAST TECHNIQUE: Sagittal T1, T2 axial, T2 axial FLAIR, axial susceptibility weighted imaging, axial diffus ion weighted images, and coronal T2 images were obtained. Pre and post-T1 axial and post T1 coronal i mages. ADC and FSPGR images. CLINICAL INFORMATION: BENIGN NEOPLASM OF BRAIN, PERIPHERAL NEUROPATHY COMPARISON: MRI 9 019. MRI 10 ,016 FINDINGS: No evidence of restricted diffusion to suggest acute ischemia. Ventricular system and basal cisterns are patent. Chronic infarct right parasagittal occipital lobe with encephalomalacia and gliosis is un changed since 2019. Mild small vessel changes with moderate parenchymal volume loss. Small vessel char[place] nges in the [place]. Chronic hemosiderin in the right parasagittal occipital lobe in the prior infarct b ed. Chronic lacunar infarcts in the cerebellum. Stenosis right distal vertebral artery is unchanged. Othe rwise normal vascular flow voids at the skull base. Mild mucosal thickening ethmoid air cells. Mastoi d air cells are well aerated. Chronic hemosiderin in the right parasagittal occipital lobe in the prior infarct bed. Normal optic c hiasm and pituitary infundibulum. No abnormal intracranial enhancement. Disc bulging upper cervical s pine at C2-C3 and C3-C4 with mild to moderate central canal stenosis. This can be further evaluated w ith cervical spine MRI. Slight retrolisthesis C3 on C4. MR/MR head wo/w con [id number] IMPRESSION: 1. No evidence of restricted diffusion to suggest acute ischemia. 2. Mild small vessel changes moderate parenchymal volume loss is unchanged. 3. Stable chronic infarct in the right parasagittal occipital lobe with hemosi briana. Associated encephalomalacia and gliosis is unchanged. This is stable sin ce 2016. 4. Chronic lacunar infarcts in the cerebellum. 5. Disc bulging upper cervical spine at C2-C3 and C3-C4 with mild to moderate central canal stenosis. This can be further evaluated with cervical spine MRI.
== END 2020-06-20 14:16 | disposition home or self-care (01) ==
LOC: RADWPI 14:18
PROVIDERS: PCP Electrodiagnostic Medicine; Visit Provider Electrodiagnostic Medicine
DX: D33.2 Benign neoplasm of brain, unspecified (principal); G62.9 Polyneuropathy, unspecified; M50.21 Other cervical disc displacement, high cervical region; I63.9 Cerebral infarction, unspecified
CPT/HCPCS: 70553; A9579

== ENCOUNTER → 2020-06-21 08:24 | Outpatient (BNVA) | payer MEDICARE, OTHER, SELFPAY | PROVIDERS: PCP Electrodiagnostic Medicine; Visit Provider Orthopaedic Surgery | DX: Z47.89 Encounter for other orthopedic aftercare (principal); Z98.1 Arthrodesis status | CPT/HCPCS: 72100 ==

== ENCOUNTER → 2020-07-09 09:02 | Outpatient (BNVA) | payer MEDICARE, OTHER, SELFPAY | PROVIDERS: PCP Electrodiagnostic Medicine; Visit Provider Specialist | DX: M25.561 Pain in right knee (principal); Z96.651 Presence of right artificial knee joint; M17.12 Unilateral primary osteoarthritis, left knee | CPT/HCPCS: 73560; 73565 ==

== ENCOUNTER 2020-07-16 07:44 | Outpatient (CLI) | payer MEDICARE, OTHER, SELFPAY ==
--- NOTE | 2020-07-16 08:00 | NM_ITS ---
WS: [id number] THREE-PHASE BONE SCAN HISTORY: Z96.651 - Presence of right artificial knee joint COMPARISON: Radiograph 07/09/2020 Patient is is injected with 24.5 mCi Tc99m HDP intravenously. Immediate angiographic phase imaging is performed over the area of concern. Static blood pool imaging also performed. Two-hour whole-body sc intigrams performed in anterior and posterior projections. Additional large field of view imaging sub mitted as necessary. 3 phase imaging performed over the knees. There is no increased uptake noted on the angiographic phas e or blood pool phase of the RIGHT knee. There is a photopenic defect in the region of the hardware. On the two-hour delayed imaging there some very mild uptake at the joint line which can be seen posto peratively. Mild loosening of the hardware along the tibial plateau cannot be excluded. Slight increa sed uptake also within the superior patella. Mild bilateral AC joint and SC joint arthritis. Mild thoracolumbar scoliosis. Mild increased uptake i n the LEFT facet joints at T7 and T8 8. NM/NM bone 3 phase [id number] IMPRESSION: 1. No evidence for osteomyelitis RIGHT knee. 2. Very mild increased uptake on the two-hour delayed imaging along the RIGHT tibial plateau may indicate is loosening.
== END 2020-07-16 07:45 | disposition home or self-care (01) ==
LOC: NM 07:45
PROVIDERS: PCP Electrodiagnostic Medicine; Visit Provider Specialist
DX: Z96.651 Presence of right artificial knee joint (principal)
CPT/HCPCS: 78315; A9561

== ENCOUNTER → 2020-07-19 08:00 | Outpatient (BNVA) | payer MEDICARE, OTHER, SELFPAY | PROVIDERS: PCP Electrodiagnostic Medicine; Visit Provider Orthopaedic Surgery | DX: Z47.89 Encounter for other orthopedic aftercare (principal); Z98.1 Arthrodesis status | CPT/HCPCS: 72100 ==

== ENCOUNTER 2020-07-25 06:00 | Outpatient (RCR) | payer MEDICARE, OTHER, SELFPAY | END 2020-08-12 23:59 | disposition home or self-care (01) | LOC: SPT 06:00 | PROVIDERS: PCP Electrodiagnostic Medicine; Referring Provider Orthopaedic Surgery; Visit Provider Orthopaedic Surgery | DX: Z47.89 Encounter for other orthopedic aftercare (principal) | CPT/HCPCS: 97161 ==

== ENCOUNTER 2020-07-25 06:00 | Outpatient (RCR) | payer MEDICARE, OTHER, SELFPAY | END 2020-08-12 23:59 | disposition home or self-care (01) | LOC: SPT 06:00 | PROVIDERS: PCP Electrodiagnostic Medicine; Referring Provider Specialist; Visit Provider Specialist | DX: Z47.1 Aftercare following joint replacement surgery (principal); Z96.651 Presence of right artificial knee joint | CPT/HCPCS: 97161 ==

== ENCOUNTER 2020-10-31 10:55 | Outpatient (CLI) | payer MEDICARE, OTHER, SELFPAY ==
--- NOTE | 2020-10-31 11:16 | XR_ITS ---
WS: [id number] Lumbar spine, 3 views, 10/31/2020 Clinical Data: LOWER BACK PAIN/DDD-CERVICAL SPINE W/RADICULOPATHY Comparison: Standing lumbar spine, 07/19/2020. Findings: The posterior fusion with bilateral pedicle screws from L4 through L1 is the same. There are disc spa cers at L4-L5 and L5-S1 unchanged. Degenerative disc narrowing is present at L1-L2, L2-L3 and L3-L4. There is a levoscoliosis with osteoarthritis. There is a L4 laminectomy. No compression fractures are seen. The SI joints and transverse processes are not remarkable. There a re clips in the right upper quadrant from a cholecystectomy. XR/XR lumbar spine 2-3V* [id number] Impression: 1. Posterior lumbar fusion L4-S1 unchanged. 2. Levoscoliosis, osteoarthritis and degenerative disc disease unchanged.
== END 2020-10-31 10:56 | disposition home or self-care (01) ==
LOC: RAD 11:05
PROVIDERS: PCP Electrodiagnostic Medicine; Visit Provider Electrodiagnostic Medicine
DX: M54.5 Low back pain (principal); M50.10 Cervical disc disorder with radiculopathy, unspecified cervical region; M43.27 Fusion of spine, lumbosacral region; M51.36 Other intervertebral disc degeneration, lumbar region; M41.86 Other forms of scoliosis, lumbar region; M47.816 Spondylosis without myelopathy or radiculopathy, lumbar region
CPT/HCPCS: 72100

== ENCOUNTER 2020-11-23 14:38 | Outpatient (CLI) | payer MEDICARE, OTHER, SELFPAY ==
--- NOTE | 2020-11-23 | USCV_ITS ---
Tenzin Hauser Age: 70 Gender: M : 1950 Exam Date: 11/23/2020 15:11 Ordering Phys: Castro Pang MD (Andy) [email or web address] [place] Technologist: Breonna Gamble [place] [facility] [place]ication: PT FOR RECHECK OF CCA STENOSIS Risk Factors: Unknown Previous Vascular Surgery: None Right Brachial BP: / Left Brachial BP: / Right Left Velocity (cm/s) Spectral Plaque Velocity (cm/s) Spectral Plaque Syst/Diast Broadening Syst/Diast Broadening 101.20/21.30 Prox CCA 104.60/ 25.70 69.80/ 13.20 Mid CCA 64.10 / 14.80 69.80/ 20.20 Hetro Distal CCA 69.00 / 11.80 Hetro 71.00/ 22.70 Hetro Prox ICA 138.50/ 30.60 Hetro 107.50/32.50 Mid ICA 101.50/ 31.50 91.70/ 31.50 Distal ICA 97.30 / 31.50 106.70 Hetro ECA 106.00 Hetro 1.54 ICA/CCA 2.16 Antegrade Vertebral Antegrade 27.50/ 13.80 cm/s 59.10/ 26.00 cm/s Bi Subclavian Tri 109.4 169.7 0 0 FINDINGS Comparison:. 07/18/19. Diffuse bilateral scattered calcified plaque and intimal thickening throughout the common carotid arteries and extending through the bifurcation. Moderate increase in velocity left ICA. Antegrade vertebral arteries. CONCLUSIONS Left ICA stenosis 50-69%. Increase in stenosis since the prior exam. Right ICA stenosis < 50%. Dr. Donna Faith DO (Electronically Signed) Final Date: 23 November 2020 16:13 S
== END 2020-11-23 14:39 | disposition home or self-care (01) ==
LOC: US 14:39
PROVIDERS: PCP Electrodiagnostic Medicine; Visit Provider Thoracic Surgery (Cardiothoracic Vascular Surgery)
DX: I65.23 Occlusion and stenosis of bilateral carotid arteries (principal)
CPT/HCPCS: 93880

== ENCOUNTER 2021-01-21 08:49 | Outpatient (CLI) | payer MEDICARE, OTHER, SELFPAY ==
--- NOTE | 2021-01-21 08:59 | XR_ITS ---
WS: [id number] LEFT SHOULDER: 3 VIEW(S) TECHNIQUE: Internal and external rotation with Y view. HISTORY: LEFT SHOULDER PAIN COMPARISON: None available. Moderate AC joint arthritis. Bone hypertrophy and joint space narrowing. There are additional cortica l irregularities involving the humeral head. Mild narrowing of the glenohumeral joint. XR/XR shoulder LT min 2V* [id number] IMPRESSION: 1. Moderate AC joint arthritis. 2. No fracture.
--- NOTE | 2021-01-21 08:59 | XR_ITS ---
WS: [id number] LEFT HUMERUS: 2 VIEW(S) TECHNIQUE: AP and lateral. HISTORY: PAIN IN LEFT UPPER ARM COMPARISON: None available. No acute fracture or dislocation. AC joint arthritis. Mild narrowing of the glenohumeral joint. No foreign bodies and visualized upper thorax is unremarkable. XR/[place] [id number] IMPRESSION: Osteoarthritis at the glenohumeral joint and AC joint. No fracture seen.
== END 2021-01-21 08:50 | disposition home or self-care (01) ==
PROVIDERS: PCP Electrodiagnostic Medicine; Visit Provider Electrodiagnostic Medicine
DX: M79.622 Pain in left upper arm (principal); M19.012 Primary osteoarthritis, left shoulder
CPT/HCPCS: 73030; 73060

== ENCOUNTER 2021-02-08 07:56 | Outpatient (CLI) | payer MEDICARE, OTHER, SELFPAY ==
--- NOTE | 2021-02-08 08:09 | MR_ITS ---
WS: [id number] MRI LEFT SHOULDER HISTORY: ROTATOR CUFF SYNDROME, LEFT/ SHOULDER PAIN,LEFT COMPARISON: Shoulder radiograph 01/21/2021 TECHNIQUE: Multiplanar sequences of the shoulder joint are submitted. Moderate AC joint hypertrophy. There is fluid extending to the AC ligament consistent with tear. No e levation of the clavicle. There is fluid surrounding the distal clavicle. Additional 7 mm osteophyte from the distal undersurface of the acromion encroaching upon the supraspinatus tendon. No os acromio n. Biceps tendon sits within the bicipital groove but there is a split tear within the tendon. Extrac apsular portion of the biceps tendon is not well visualized and may be completely torn. Significant encroachment upon the supraspinatus tendon and muscle at the level of the glenoid by the AC joint hypertrophy and osteophytes. There is a large amount of thickening and increased signal in t he distal 3 to 4 cm of the supraspinatus tendon. There is a fluid gap near the rotator cuff interval. Biceps tendon is not identified within this rotator cuff interval. Large amount of edema within the anterior supraspinatus muscle and there is also mild atrophy. Subscapularis tendon intact. Partial te ar distal infraspinatus tendon along the articular surface. Large amount of fluid in the subscapular bursa. Large amount of fluid surrounding the humeral head. H umeral head is slightly high riding. Subchondral cyst along the anterior surface of the humeral head. Degenerative intrasubstance degeneration involving the labrum. Posterior labrum is torn. MR/MR shoulder LT wo con* [id number] IMPRESSION: 1. Moderate AC joint hypertrophy with acute tear through the AC ligament. No d isplacement. 2. Significant encroachment upon the supraspinatus tendon and muscle by the AC joint osteophytes. 3. Significant tendinopathy in the distal 3 to 4 cm of the supraspinatus tendo n. 4. Small partial tear articular surface distal infraspinatus tendon. 5. Biceps tendon in the bicipital groove contains a split tear. 6. Suspect complete tear of the extracapsular biceps tendon. In the rotator cu ff interval there is a fluid gap and the biceps tendon is not identified. Suspe ct torn retracted tendon. 7. Large amount of fluid surrounding the humeral head. 8. Edema in the supraspinatus muscle. 9. Diffuse intrasubstance degeneration of the labrum with a tear in the textiles sales representative ior labrum.
== END 2021-02-08 07:57 | disposition home or self-care (01) ==
PROVIDERS: PCP Electrodiagnostic Medicine; Visit Provider Electrodiagnostic Medicine
DX: M75.102 Unspecified rotator cuff tear or rupture of left shoulder, not specified as traumatic (principal); M25.512 Pain in left shoulder; M79.622 Pain in left upper arm; R60.0 Localized edema; S43.52XA Sprain of left acromioclavicular joint, initial encounter; S46.212A Strain of muscle, fascia and tendon of other parts of biceps, left arm, initial encounter; X58.XXXA Exposure to other specified factors, initial encounter
CPT/HCPCS: 73221

== ENCOUNTER → 2021-02-21 11:11 | Outpatient (BNVA) | payer MEDICARE, OTHER, SELFPAY | PROVIDERS: PCP Electrodiagnostic Medicine; Visit Provider Orthopaedic Surgery | DX: M25.512 Pain in left shoulder (principal); M47.812 Spondylosis without myelopathy or radiculopathy, cervical region; M47.813 Spondylosis without myelopathy or radiculopathy, cervicothoracic region | CPT/HCPCS: 72050; 73030 ==

== ENCOUNTER 2021-05-13 06:00 | Outpatient (RCR) | payer MEDICARE, OTHER, SELFPAY | END 2021-05-14 23:59 | disposition home or self-care (01) | LOC: SPT 06:00 | PROVIDERS: PCP Electrodiagnostic Medicine; Visit Provider Orthopaedic Surgery | DX: S46.092D Other injury of muscle(s) and tendon(s) of the rotator cuff of left shoulder, subsequent encounter (principal); X58.XXXD Exposure to other specified factors, subsequent encounter | CPT/HCPCS: 97110; 97162 ==

== ENCOUNTER 2021-05-15 06:00 | Outpatient (RCR) | payer MEDICARE, OTHER, SELFPAY | END 2021-06-14 23:59 | disposition home or self-care (01) | LOC: SPT 06:00 | PROVIDERS: PCP Electrodiagnostic Medicine; Visit Provider Orthopaedic Surgery | DX: S46.092D Other injury of muscle(s) and tendon(s) of the rotator cuff of left shoulder, subsequent encounter (principal); X58.XXXD Exposure to other specified factors, subsequent encounter | CPT/HCPCS: 97110 ==

== ENCOUNTER 2021-06-03 07:35 | Outpatient (CLI) | payer MEDICARE, OTHER, SELFPAY ==
--- NOTE | 2021-06-03 08:00 | USCV_ITS ---
Tenzin Hauser Age: 70 Gender: M : 1950 Exam Date: 06/03/2021 07:55 Ordering Phys: Castro Pang MD (Andy) ([email or web address] – [place]) Technologist: Barbie Bradshaw [place] [facility] [place]: EVAL FOR CAROTID STENOSIS Risk Factors: Previous Vascular Surgery: Right Brachial BP: / Left Brachial BP: / Right Left Velocity (cm/s) Spectral Plaque Velocity (cm/s) Spectral Plaque Syst/Diast Broadening Syst/Diast Broadening 53.00/ 7.70 Prox CCA 59.80 / 12.80 52.80/ 9.30 Mid CCA 61.80 / 15.60 50.50/ 10.90 Distal CCA 58.10 / 16.20 49.70/ 13.20 Prox ICA 58.80 / 17.10 94.80/ 31.80 Mid ICA 82.70 / 29.10 59.10/ 15.80 Distal ICA 60.30 / 18.60 79.20 ECA 38.60 1.79 ICA/CCA 1.34 Antegrade Vertebral Antegrade 30.20/ 5.90 cm/s 56.40/ 21.40 cm/s Tri Subclavian Tri 94.30 83.90 CONCLUSIONS Right ICA stenosis <50%. Left ICA stenosis <50%. Normal antegrade Doppler flow noted in the right vertebral artery. Normal antegrade Doppler flow noted in the left vertebral artery. Gordon Flynn MD (Electronically Signed) Final Date: 03 June 2021 10:47 S
== END 2021-06-03 07:36 | disposition home or self-care (01) ==
LOC: RAD 07:37
PROVIDERS: PCP Electrodiagnostic Medicine; Visit Provider Thoracic Surgery (Cardiothoracic Vascular Surgery)
DX: I65.23 Occlusion and stenosis of bilateral carotid arteries (principal)
CPT/HCPCS: 93880

== ENCOUNTER → 2021-06-25 13:08 | Outpatient (BNVA) | payer MEDICARE, OTHER, SELFPAY | PROVIDERS: PCP Electrodiagnostic Medicine; Visit Provider Orthopaedic Surgery | DX: M43.10 Spondylolisthesis, site unspecified (principal); M54.9 Dorsalgia, unspecified | CPT/HCPCS: 72100 ==

== ENCOUNTER 2021-07-02 06:00 | Outpatient (RCR) | payer MEDICARE, OTHER, SELFPAY | END 2021-07-15 23:59 | disposition home or self-care (01) | LOC: SPT 06:00 | PROVIDERS: PCP Electrodiagnostic Medicine; Referring Provider Orthopaedic Surgery; Visit Provider Orthopaedic Surgery | DX: M54.50 Low back pain, unspecified (principal); M48.061 Spinal stenosis, lumbar region without neurogenic claudication | CPT/HCPCS: 97110; 97162 ==

== ENCOUNTER 2021-07-16 06:00 | Outpatient (RCR) | payer MEDICARE, OTHER, SELFPAY | END 2021-08-12 23:59 | disposition home or self-care (01) | LOC: SPT 06:00 | PROVIDERS: PCP Electrodiagnostic Medicine; Referring Provider Orthopaedic Surgery; Visit Provider Orthopaedic Surgery | DX: M54.50 Low back pain, unspecified (principal); M48.061 Spinal stenosis, lumbar region without neurogenic claudication | CPT/HCPCS: 97110 ==

== ENCOUNTER → 2022-01-01 11:45 | Outpatient (BNVA) | payer MEDICARE, OTHER, SELFPAY | PROVIDERS: PCP Electrodiagnostic Medicine; Visit Provider Family Medicine | DX: E11.9 Type 2 diabetes mellitus without complications (principal); I10 Essential (primary) hypertension; M43.10 Spondylolisthesis, site unspecified; Z98.890 Other specified postprocedural states; E78.5 Hyperlipidemia, unspecified; L98.9 Disorder of the skin and subcutaneous tissue, unspecified; I25.10 Atherosclerotic heart disease of native coronary artery without angina pectoris; I63.9 Cerebral infarction, unspecified | CPT/HCPCS: 80053; 80061; 83036; 85025 ==

== ENCOUNTER → 2022-04-08 08:40 | Outpatient (BNVA) | payer MEDICARE, OTHER, SELFPAY | PROVIDERS: PCP Family Medicine; Visit Provider Family Medicine | DX: I10 Essential (primary) hypertension (principal); E78.5 Hyperlipidemia, unspecified; M79.10 Myalgia, unspecified site; Z51.81 Encounter for therapeutic drug level monitoring; R51.9 Headache, unspecified; E11.9 Type 2 diabetes mellitus without complications | CPT/HCPCS: 80053; 83036; 83735; 85025; 85651 ==

== ENCOUNTER 2022-07-01 20:00 | Outpatient (CLI) | payer MEDICARE, OTHER, SELFPAY | END 2022-07-01 20:01 | disposition home or self-care (01) | LOC: SLEEP 07-02 07:58 | PROVIDERS: PCP Family Medicine; Visit Provider Specialist | DX: G47.33 Obstructive sleep apnea (adult) (pediatric) (principal) | CPT/HCPCS: 95810 ==

== ENCOUNTER 2022-07-21 14:11 | Outpatient (CLI) | payer MEDICARE, OTHER, SELFPAY ==
--- NOTE | 2022-07-21 14:26 | MR_ITS ---
WS: [id number] MRI BRAIN WITH HIGH-RESOLUTION IMAGING THROUGH THE INTERNAL AUDITORY CANALS WITHOUT AND WITH CONTRAST HISTORY: SENSORINEURAL HEARING LOSS, BILATERAL COMPARISON: 06/20/2020 TECHNIQUE: Multiplanar, multisequence imaging is performed through the brain. Additional 3 mm imaging performed in multiple planes through the internal auditory canal. Postcontrast imaging with 20 ml's of MultiHance. No acute intracranial hemorrhage, midline shift, edema or mass effect. Prior hemorrhagic infarct RIGHT parasagittal occipital lobe with encephalomalacia unchanged. Stable s dany 2019. Mild small vessel ischemic changes and moderate atrophy. Mild progression of small vessel ischemic disease since 2020. Ventricles and extra-axial spaces are normal. No inferior displacement of cerebellar tonsils. Clivus and pituitary gland are normal. Internal and external auditory canals: Unremarkable. Cranial nerves VII and VIII complexes: Unremarkable. No enhancement or mass. Cerebellopontine angles: Normal. Paranasal sinuses: Normal. Mastoid air cells: Normal. Calvarium and scalp: Normal. Small caliber distal RIGHT vertebral artery. The LEFT vertebral artery is patent. Otherwise enhanceme nt is normal throughout the [place]. MR/MR iac's wo/w con* [id number] IMPRESSION: 1. No mass or abnormal enhancement at the cerebellopontine angles or along the internal auditory canals. 2. Remote hemorrhagic infarct RIGHT parasagittal occipital lobe. 3. Mild progression of small vessel ischemic disease since 2020. 4. No enhancing masses.
[2022-07-21] MEDS: gadobenate dimeglumine 20 mL vial IV (15:08)
== END 2022-07-21 14:12 | disposition home or self-care (01) ==
LOC: RAD 14:15
PROVIDERS: PCP Family Medicine; Visit Provider Specialist
DX: H90.3 Sensorineural hearing loss, bilateral (principal); I63.9 Cerebral infarction, unspecified; I67.82 Cerebral ischemia
CPT/HCPCS: 70553; A9577

== ENCOUNTER → 2022-08-07 08:46 | Outpatient (BNVA) | payer MEDICARE, OTHER, SELFPAY | PROVIDERS: PCP Family Medicine; Visit Provider Family Medicine | DX: E11.9 Type 2 diabetes mellitus without complications (principal) | CPT/HCPCS: 83036 ==

== ENCOUNTER → 2022-09-04 08:49 | Outpatient (BNVA) | payer MEDICARE, OTHER, SELFPAY | PROVIDERS: PCP Family Medicine; Visit Provider Specialist | DX: G62.89 Other specified polyneuropathies (principal) | CPT/HCPCS: 95908; 95910 ==

== ENCOUNTER → 2022-11-03 09:33 | Outpatient (BNVA) | payer MEDICARE, OTHER, SELFPAY | PROVIDERS: PCP Family Medicine; Referring Provider Family Medicine; Visit Provider Specialist | DX: M65.322 Trigger finger, left index finger (principal) | CPT/HCPCS: 73130; 99214 ==

== ENCOUNTER 2022-11-19 07:13 | Outpatient (RCR) | payer MEDICARE, OTHER, SELFPAY | END 2022-12-12 23:59 | disposition home or self-care (01) | LOC: SPT 07:13 | PROVIDERS: Visit Provider Family Medicine | DX: M25.551 Pain in right hip (principal); M25.552 Pain in left hip | CPT/HCPCS: 97110; 97162; G0283 ==

== ENCOUNTER → 2022-11-27 15:30 | Outpatient (BNVA) | payer MEDICARE, OTHER, SELFPAY | PROVIDERS: Visit Provider Orthopaedic Surgery | DX: M54.9 Dorsalgia, unspecified (principal) | CPT/HCPCS: 72110; 99214 ==

== ENCOUNTER 2022-12-13 06:00 | Outpatient (RCR) | payer MEDICARE, OTHER, SELFPAY | END 2022-12-22 23:59 | disposition home or self-care (01) | LOC: SPT 06:00 | PROVIDERS: Visit Provider Family Medicine | DX: M25.551 Pain in right hip (principal); M25.552 Pain in left hip | CPT/HCPCS: 97110; G0283 ==

== ENCOUNTER 2022-12-18 10:30 | Outpatient (CLI) | payer MEDICARE, OTHER, SELFPAY ==
--- NOTE | 2022-12-18 11:00 | MR_ITS ---
WS: [id number] MRI LUMBAR SPINE NONCONTRAST HISTORY: Lumbar Pain COMPARISON: 03/30/2020 TECHNIQUE: Sagittal and axial multisequence imaging is submitted. Advanced degenerative disc disease and stenoses in the cervical spine. Component of cervical stenosis from C2-3 through C5-6. Thoracic disc protrusion at T7-8. Central canal stenosis at T10-11. Increase d signal within the thoracic cord suspicious for myelomalacia. LEFT curvature lumbar spine. Prior posterior lumbar fusion hardware at L4-5 with interbody spacer at L4-5. L4 anterolisthesis by 4 mm. L1, L2 and L3 retrolisthesis by 3 to 5 mm. No marrow edema or fract ure. Disc spaces are all narrowed. Conus terminates normally at L1. Facet joint arthritis and disc disease causing a component of foraminal stenosis from T10-11 through T12-L1. L1-L2: Annular disc bulging with a central and RIGHT subarticular disc protrusion diffuse annular dis c bulging and osteophytic ridging. Facet joint arthritis. Moderate bilateral foraminal stenosis. Mode rate bilateral subarticular recess stenosis, greatest on the RIGHT. Disc contacts and slightly displa phillip the traversing RIGHT L2 nerve root. Similar to the prior study. L2-L3: Marked annular disc bulging and facet and ligamentum flavum arthritis. Severe encroachment int o the subarticular recesses. Severe central, bilateral subarticular recess and foraminal stenosis. Pr ogression of stenosis since the prior study. L3-L4: Diffuse osteophytic ridging with annular disc bulging, ligamentum flavum and facet arthritis. Severe central, bilateral subarticular recess and foraminal stenosis. Greater foraminal stenosis on t he LEFT. Stenoses have progressed since 2020. There is significant contact on both the L3 and L4 nerv e roots. L4-L5: Diffuse annular disc bulging and osteophytic ridging. Mildly patent thecal sac. Large posterio r laminectomy defects. Mild to moderate foraminal stenosis. L5-S1: Diffuse annular disc bulging with a patent patulous thecal sac. Small RIGHT subarticular disc protrusion. Multiple moderate bilateral foraminal stenosis. Postsurgical changes noted at the L4-5 level related to the prior fusion hardware and laminectomy def ects. MR/MR lumbar spine wo con* [id number] IMPRESSION: 1. Status post posterior lumbar fusion at L4-5 with interbody spacer. 2. Advanced degenerative disc disease with facet joint arthritis. 3. L1-2: Central and RIGHT subarticular disc protrusion. Disc contacts the tra versing RIGHT L2 nerve root. Moderate bilateral foraminal and subarticular rece ss stenosis. 4. L2-3 and L3-4: Severe central, bilateral subarticular recess and foraminal stenosis. 5. Multiple moderate bilateral foraminal stenosis at L4-5 and L5-S1. 6. Advanced degenerative changes in the cervical spine with central stenoses f rom C2-3 through C5-6. 7. LEFT curvature lumbar spine. 8. Mild stable retrolisthesis of L1, L2 and L3 by 3 to 5 mm.
== END 2022-12-18 10:31 | disposition home or self-care (01) ==
LOC: RAD 10:30
PROVIDERS: Visit Provider Orthopaedic Surgery
DX: M51.36 Other intervertebral disc degeneration, lumbar region (principal); M48.061 Spinal stenosis, lumbar region without neurogenic claudication; M51.26 Other intervertebral disc displacement, lumbar region; M43.16 Spondylolisthesis, lumbar region
CPT/HCPCS: 72148

== ENCOUNTER → 2022-12-24 14:55 | Outpatient (BNVA) | payer MEDICARE, OTHER, SELFPAY | PROVIDERS: Visit Provider Specialist | DX: M65.322 Trigger finger, left index finger (principal); M65.332 Trigger finger, left middle finger | CPT/HCPCS: 99213 ==

== ENCOUNTER → 2023-01-20 13:45 | Outpatient (BNVA) | payer MEDICARE, OTHER, SELFPAY | PROVIDERS: Visit Provider Orthopaedic Surgery | DX: M54.9 Dorsalgia, unspecified (principal); M25.561 Pain in right knee; Z96.651 Presence of right artificial knee joint | CPT/HCPCS: 99214 ==

== ENCOUNTER 2023-03-16 15:01 | Outpatient (CLI) | payer MEDICARE, OTHER, SELFPAY ==
[2023-03-16] MEDS: iohexol 350 mg/mL 500 mL Btl (per mL) PO (15:11)
--- NOTE | 2023-03-16 16:30 | CT_ITS ---
WS: [id number] CT ABDOMEN PELVIS TECHNIQUE: Contrast-enhanced CT of the abdomen and pelvis with coronal and sagittal reformatted image s. CLINICAL INFORMATION: Right lower quadrant pain COMPARISON: None. DLP: 544.[address] scans at [facility] use at least one of these dose optimization techniques: automated e xposure control; mA and/or kV adjustment per patient size (includes targeted exams where dose is matc hed to clinical indication); or iterative reconstruction. FINDINGS: Mild diffuse fatty infiltration of the liver. Prior cholecystectomy. Normal portal vein and splenic v ein. Normal spleen. Normal GE junction. Diffuse gastric rugal thickening can be seen with gastritis. Tiny esophageal hiatal hernia with air-fluid level. Slight bibasilar atelectasis. A few subcentimeter pulmonary nodules in the RIGHT middle lobe and RIGHT lower lobe largest measuring 4 mm. Normal splee n. Splenic artery calcification. Normal caliber abdominal aorta. Aortic calcification. No aneurysm. Urine distended bladder. Small bladder cystocele. Enlarged prostate measuring 4.6 cm. Recommend corre lation PSA. Normal sigmoid colon. No evidence of small or large bowel obstruction. Normal renal paren chyma enhancement. No hydronephrosis. Adrenal glands are normal. Pedicle screw fixation L4-S1 with interbody fusion grafts. Visualized RIGHT lower ribs are normal. IMPRESSION: 1. Diffuse fatty filtration of the liver. Prior cholecystectomy. 2. Tiny esophageal hiatal hernia with evidence of gastritis. 3. No hydronephrosis in either kidney. 4. Small bladder cystocele. 5. Mild prostate enlargement. Recommend correlation PSA. 6. A few subcentimeter nodules in the RIGHT middle lobe and RIGHT lower lobe. Recommend 12-month [facility] CT follow-up. 7. Visualized RIGHT lower ribs appear normal.
[2023-03-16 16:31] LABS: Blood Urea Nitrogen 10 mg/dL (8-23)
[2023-03-16] MEDS: iohexol 350 mg/mL 500 mL Btl (per mL) IV (16:38)
== END 2023-03-16 15:02 | disposition home or self-care (01) ==
PROVIDERS: PCP Family Medicine; Visit Provider Family Medicine
DX: R10.31 Right lower quadrant pain (principal); R10.9 Unspecified abdominal pain; K76.0 Fatty (change of) liver, not elsewhere classified; K44.9 Diaphragmatic hernia without obstruction or gangrene; N40.0 Benign prostatic hyperplasia without lower urinary tract symptoms
CPT/HCPCS: 74177; 82565; 84520; Q9967

== ENCOUNTER 2023-03-17 11:26 | Outpatient (CLI) | payer MEDICARE, OTHER, SELFPAY ==
--- NOTE | 2023-03-17 11:31 | XR_ITS ---
WS: [id number] EXAMINATION: XR knee RT 3V* [id number] REASON FOR EXAM: Right knee pain COMPARISON: 07/09/2020 ORDER DATE: 03/17/2023 11:41 AM FINDINGS: There is satisfactory alignment of the prostheses at the knee joint. There is satisfactory prosthesis positioning of the total knee replacement components. There is a slightly widened periprosthetic haider ency involving the lateral tibial plateau. Soft tissues are unremarkable. Old fibular head periosteal thickening perhaps posttraumatic and unchanged from previous. Vascular calcifications again noted IMPRESSION: Slightly increased periprosthetic lucency involving the lateral tibial plateau. Clinical correlation suggested
--- NOTE | 2023-03-17 11:31 | XR_ITS ---
WS: [id number] EXAMINATION: XR hip RT 2-3V wo/w pel* [id number] REASON FOR EXAM: Right hip pain COMPARISON: 03/06/2020 ORDER DATE: 03/17/2023 11:41 AM TECHNIQUE: Frontal internal/external rotation views of the right hip were obtained. X-RAY FINDINGS: Bones/joints: No fracture. No dislocation. Subjectively moderate bilateral hip joint degeneration. Prior posterior estela fusion from L5 to S1 with interbody spacers at L5-S1. Prior surgery at symphysis pubis. The symphysis pubis is degenerated. Soft tissues: No acute soft tissue abnormality. IMPRESSION: Moderate right hip joint degeneration.
== END 2023-03-17 11:27 | disposition home or self-care (01) ==
PROVIDERS: PCP Family Medicine; Visit Provider Family Medicine
DX: Z13.220 Encounter for screening for lipoid disorders (principal); Z51.81 Encounter for therapeutic drug level monitoring; M25.561 Pain in right knee; M25.551 Pain in right hip; M16.11 Unilateral primary osteoarthritis, right hip; E11.9 Type 2 diabetes mellitus without complications; M79.10 Myalgia, unspecified site; R03.0 Elevated blood-pressure reading, without diagnosis of hypertension
CPT/HCPCS: 73502; 73562; 80053; 80061; 83036; 83735; 84550; 85025; 85651; 86141

== ENCOUNTER → 2023-04-02 14:23 | Outpatient (BNVA) | payer MEDICARE, OTHER, SELFPAY | PROVIDERS: PCP Family Medicine; Visit Provider Student in an Organized Health Care Education/Training Program | DX: M25.561 Pain in right knee (principal); Z96.651 Presence of right artificial knee joint; G89.29 Other chronic pain | CPT/HCPCS: 36415; 73562; 85025; 85651; 86140; 99214 ==

== ENCOUNTER 2023-04-14 07:19 | Outpatient (CLI) | payer MEDICARE, OTHER, SELFPAY ==
--- NOTE | 2023-04-14 08:00 | NM_ITS ---
WS: [id number] NUCLEAR MEDICINE BONE SCAN Radiopharmaceutical: 27.1 Tc-99m MDP mCi IV Injection site: Antecubital Postinjection imaging delay: 2 hr CLINICAL INFORMATION: knee pain COMPARISON: 07/16/2020 and radiograph 04/02/2023 FINDINGS: Prior postoperative changes RIGHT TKA. Slightly increased blood flow and blood pool activity about the RIGHT TKA slightly more prominent abo ut the lateral aspect of the femoral component. Mild delayed periarticular uptake about the femoral c ondyle and tibial plateau similar in appearance to 2020. New intense punctate focus of increased acti vity about the lateral femoral component appears new since 2020 Degenerative type uptake in the patella. Normal LEFT knee. Degenerative uptake involving the thoracic and lumbar spine. No other suspicious fi ndings. Soft tissue contours: Normal. Kidneys: Normal. Other findings: None. IMPRESSION: 1. Slightly increased blood flow and blood pool activity about the TKA slightly more prominent about the lateral aspect. This can be seen with chronic bony remodeling versus aseptic loosening. Increase d delayed uptake about the lateral aspect femoral component compared to 2020 concerning for loosening . 2. No other suspicious findings.
== END 2023-04-14 07:20 | disposition home or self-care (01) ==
LOC: RAD 07:20
PROVIDERS: PCP Family Medicine; Visit Provider Student in an Organized Health Care Education/Training Program
DX: M25.561 Pain in right knee (principal); Z96.651 Presence of right artificial knee joint
CPT/HCPCS: 78315; A9561

== ENCOUNTER → 2023-04-27 09:31 | Outpatient (BNVA) | payer MEDICARE, OTHER, SELFPAY | PROVIDERS: PCP Family Medicine; Visit Provider Family Medicine | DX: N40.0 Benign prostatic hyperplasia without lower urinary tract symptoms (principal) | CPT/HCPCS: 84153 ==

== ENCOUNTER → 2023-05-15 10:36 | Outpatient (BNVA) | payer MEDICARE, OTHER, SELFPAY | PROVIDERS: PCP Family Medicine; Visit Provider Student in an Organized Health Care Education/Training Program | DX: M25.561 Pain in right knee (principal); G89.29 Other chronic pain; Z96.651 Presence of right artificial knee joint; T84.038A Mechanical loosening of other internal prosthetic joint, initial encounter; Y79.2 Prosthetic and other implants, materials and accessory orthopedic devices associated with adverse incidents | CPT/HCPCS: 99214 ==

== ENCOUNTER → 2023-05-22 09:26 | Outpatient (BNVA) | payer MEDICARE, OTHER, SELFPAY | PROVIDERS: PCP Family Medicine; Visit Provider Clinical Nurse Specialist Adult Health | DX: J06.9 Acute upper respiratory infection, unspecified (principal) | CPT/HCPCS: 87400; 87426 ==

== ENCOUNTER → 2023-07-07 14:39 | Outpatient (BNVA) | payer MEDICARE, OTHER, SELFPAY | PROVIDERS: PCP Family Medicine; Visit Provider Family Medicine | DX: E11.9 Type 2 diabetes mellitus without complications (principal); R97.20 Elevated prostate specific antigen [PSA] | CPT/HCPCS: 83036; 84153 ==

== ENCOUNTER 2023-08-06 06:35 | Outpatient (CLI) | payer MEDICARE, OTHER, SELFPAY ==
--- NOTE | 2023-08-06 07:15 | MR_ITS ---
WS: [id number] MRI BRAIN WITHOUT CONTRAST HISTORY: Dizziness COMPARISON: 07/21/2022, 06/20/2020 TECHNIQUE: Diffusion imaging, multiplanar T1, T2 and FLAIR imaging obtained. No acute infarct. Diffusion imaging is normal. Remote infarct RIGHT parasagittal occipital lobe with hemorrhage. Gliosis and encephalomalacic associated with the infarct is reidentified. Long-term stabi lity. This is a chronic infarct and previously described. There is additional mild small vessel ische scooby disease. No additional large territory volume loss or edema. Mild hippocampal atrophy. Mild diffuse atrophy. Ventricles and extra-axial spaces are mildly prominent on the basis of the atrophy. No inferior displacement of cerebellar tonsils. The sella turcica and pituitary gland are unremarkabl e. Dural venous sinuses and [place] of [place] demonstrate no abnormality on this unenhanced studies. Dist al RIGHT vertebral artery is small caliber. Paranasal sinuses: Clear. Mastoid air cells: Normal. Calvarium and scalp: Intact. Reidentified are degenerative changes and slight reversal of normal curvature in the upper cervical s pine contacting the ventral cervical cord at C3-4. IMPRESSION: 1. No acute hemorrhage or infarct. Normal diffusion imaging. 2. Remote RIGHT parasagittal occipital infarct with hemosiderin is stable since 2016. 3. Mild small vessel ischemic disease and atrophy is stable since 07/21/2022. No progression.
== END 2023-08-06 06:36 | disposition home or self-care (01) ==
PROVIDERS: PCP Family Medicine; Visit Provider Family Medicine
DX: R42 Dizziness and giddiness (principal); I67.82 Cerebral ischemia; G31.9 Degenerative disease of nervous system, unspecified
CPT/HCPCS: 70551

== ENCOUNTER → 2023-08-21 10:20 | Outpatient (BNVA) | payer MEDICARE, OTHER, SELFPAY | PROVIDERS: PCP Family Medicine; Visit Provider Family Medicine | DX: R74.01 Elevation of levels of liver transaminase levels (principal); Z51.81 Encounter for therapeutic drug level monitoring; I10 Essential (primary) hypertension | CPT/HCPCS: 80053; 82977; 85025; 85651; 86141 ==

== ENCOUNTER → 2023-09-03 12:54 | Outpatient (BNVA) | payer MEDICARE, OTHER, SELFPAY | PROVIDERS: PCP Family Medicine; Visit Provider Family Medicine | DX: Z51.81 Encounter for therapeutic drug level monitoring (principal); R74.01 Elevation of levels of liver transaminase levels; I10 Essential (primary) hypertension | CPT/HCPCS: 80053; 85025; 86141 ==

== ENCOUNTER 2023-09-12 04:09 | Emergency (ER) | payer MEDICARE, OTHER, SELFPAY ==
--- NOTE | 2023-09-12 04:13 | ED_ITS ---
HPI - Abdominal Pain 2 General: Chief Complaint: Urogenital-Male Stated Complaint: abdomen pain and back pain Time Seen by Provider: 09/12/23 04:13 History of Present Illness: 73-year-old male presents emergency depa rtment complaints of urinary retention and low abdominal/flank pain. 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 The patient states that since 5 PM on Thursday he is felt like he could not urinate at all and continued to have low abdominal pain. He states the pain is a pressure that is a 6 out of 10. He denies fevers chills or night sweats. He denies nausea or vomiting. Associated Symptoms: Denies nausea and vomiting Review of Systems 2 General: Reports: 10 or more systems reviewed and unremarkable except in HPI and below GI: Reports: abdominal pain; Denies: nausea or vomiting : Reports: flank pain and difficulty starting urination PFSH ED 2 PFSH: Medical History CVA (cerebral vascular accident) Carotid stenosis Spinal stenosis Diabetes mellitus Coronary artery disease Surgical History H/O lateral meniscus repair of left knee H/O heart artery stent History of cholecystectomy H/O neck surgery History of back surgery H/O right knee surgery Right knee replacement History of left-sided carotid endarterectomy Family History Father CAD (coronary artery disease) Sister Diabetes Denies family history of Cancer Hypertension Stroke Social History Smoking and tobacco/nicotine status: former use of tobacco/nicotine Quit status (tobacco/nicotine): has quit using Year quit tobacco: 1979 Alcohol intake: current Alcohol intake frequency: 0-2 Drinks per Day Alcohol type: beer Substance/Drug Use: never Physical Exam 2 Narrative: EXAM NARRATIVE: Constitutional: the patient appears well nourished and of normal development. Vital signs as documented. No acute distress at present. Alert and oriented-to person, place, time and situation. Head, eyes, ears, nose, mouth, throat: Normocephalic, atraumatic. Pupils-equal, round, reactive to light. No scleral icterus. Normal-appearing external ears. Normal appearing nasal turbinates, no drainage. No obvious oral lesions, posterior oropharynx without erythema or exudates. Neck: Supple, trachea is midline, no lymphadenopathy, no jugular venous distension, thyromegaly, or carotid bruits. Carotid upstrokes are brisk bilaterally. Lungs: clear to auscultation to all lung dale. Symmetrical rise and fall of chest, no obvious signs of increased work of breathing at present. Cardiac: Regular rate and rhythm, positive S1, S2. No murmurs, rubs or gallops that I can appreciate Abdomen: Soft, lower abdomen tender to palpation, normal active bowel sounds to all quadrants. No palpable masses, no organomegaly and abdominal bruits. Palpable bladder distention, bladder scan demonstrated 525 mL residual volume. Extremities: 2+ pulses in the upper extremities that are equal bilaterally, 2+ pulses in the lower extremities that are equal bilaterally. Non-edematous. Moves all extremities well, sensation to all extremities are noted. Skin: Warm, dry, intact. Course 2 Vital Signs: Vital signs: Vital Signs Temperature 97.8 F 09/12/23 04:14 Pulse Rate 70 09/12/23 06:07 Respiratory Rate 16 09/12/23 06:07 Blood Pressure 187/97 09/12/23 05:55 Pulse Oximetry 92 09/12/23 06:07 MDM - Abdominal Pain Medical Decision Making Physical exam completed and documented I did obtain a CBC and CMP which demonstrated a sodium level of 130 and a blood glucose of 226. Urinalysis was also obtained that demonstrated hematuria. Medical Records I reviewed the patient's medical records. Lab Data I reviewed the patient's lab results. 09/12/23 04:57 09/12/23 04:57 Labs/Radiology: Laboratory Results WBC 11.22 10^3/uL (3.29-11.43) 09/12/23 04:57 Corrected WBC Cancelled 09/12/23 04:23 RBC 4.64 10^6/uL (3.85-5.65) 09/12/23 04:57 Hgb 14.50 g/dL (11.27-16.99) 09/12/23 04:57 Hct 41.9 % (37-53) 09/12/23 04:57 MCV 90.3 fl (82-101) 09/12/23 04:57 MCH 31.3 pg (27-33) 09/12/23 04:57 MCHC 34.6 g/dL (30-55) 09/12/23 04:57 RDW 11.8 % (12.1-15.1) L 09/12/23 04:57 Plt Count 152 10^3/cmm (157-399) L 09/12/23 04:57 MPV 9.6 fL (7.4-10.4) 09/12/23 04:57 Gran % Cancelled 09/12/23 04:23 Neut % (Auto) 86.3 % 09/12/23 04:57 Lymph % (Auto) 8.4 % 09/12/23 04:57 [place] % (Auto) 4.2 % 09/12/23 04:57 Eos % (Auto) 0.5 % 09/12/23 04:57 Baso % (Auto) 0.2 % 09/12/23 04:57 Neut # (Auto) 9.69 10^3/uL (1.8-7.7) H 09/12/23 04:57 Lymph # (Auto) 0.9 10^3/uL (0.8-4.8) 09/12/23 04:57 [place] # (Auto) 0.5 10^3/uL (0.2-0.9) 09/12/23 04:57 Eos # (Auto) 0.1 10^3/uL (0.0-0.8) 09/12/23 04:57 Baso # (Auto) 0.0 10^3/uL (0.0-0.1) 09/12/23 04:57 Absolute Gran (auto) Cancelled 09/12/23 04:23 Nucleated RBC % (auto) 0 % 09/12/23 04:57 Nucleated RBCs # 0.0 /100WBC 09/12/23 04:57 Sodium 130 mmol/L (136-145) L 09/12/23 04:57 Potassium 4.0 mmol/L (3.5-5.1) 09/12/23 04:57 Chloride 95 mmol/L (98-107) L 09/12/23 04:57 Carbon Dioxide 23 mmol/L (22-29) 09/12/23 04:57 Anion Gap 16.0 (5-19) 09/12/23 04:57 BUN 13 mg/dL (8-23) 09/12/23 04:57 Creatinine 0.7 mg/dL (0.7-1.2) 09/12/23 04:57 GFR Calculation Not Reportable 09/12/23 04:57 Glucose 226 mg/dL (65-115) H 09/12/23 04:57 Calculated Osmolality 277 mOsm/kg (285-295) L 09/12/23 04:57 Calcium 8.9 mg/dL (8.5-10.5) 09/12/23 04:57 Total Bilirubin 1.4 mg/dL (0.15-1.2) H 09/12/23 04:57 AST 14 U/L (0-40) 09/12/23 04:57 ALT 28 U/L (0-41) 09/12/23 04:57 Alkaline Phosphatase 117 U/L (40-130) 09/12/23 04:57 Total Protein 6.8 g/dL (6.6-8.7) 09/12/23 04:57 Albumin 3.9 g/dL (3.5-5.2) 09/12/23 04:57 Globulin 2.9 g/dL (1.3-4.6) 09/12/23 04:57 Urine Color [place] (Yellow) A 09/12/23 05:22 Urine Appearance Hazy (CLEAR) A 09/12/23 05:22 Urine pH 6 (5-7) 09/12/23 05:22 Ur Specific [place] 1.015 (1.005-1.030) 09/12/23 05:22 Urine Protein 3+ (Negative) H 09/12/23 05:22 Urine Glucose (UA) 2+ (Normal) H 09/12/23 05:22 Urine Ketones 1+ (Negative) H 09/12/23 05:22 Urine Blood 3+ (Negative) H 09/12/23 05:22 Urine Nitrate Negative (Negative) 09/12/23 05:22 Urine Bilirubin 1+ (Negative) H 09/12/23 05:22 Urine Urobilinogen Neg mg/dL (Negative) 09/12/23 05:22 Ur Leukocyte Esterase 1+ (Negative) H 09/12/23 05:22 Urine RBC 50-80 /hpf (0-2) H 09/12/23 05:22 Urine WBC 5-10 /hpf (0-5) H 09/12/23 05:22 Ur Squamous Epith Cells 0-4 /hpf (0-5) H 09/12/23 05:22 Amorphous Sediment Not Reportable 09/12/23 05:22 Urine Bacteria 1+ /hpf (NONE) H 09/12/23 05:22 No radiology studies performed this visit Discharge Plan Discharge Patient Disposition: Home Clinical Impression: Acute UTI, Acute urinary retention Condition: Stable Prescriptions: New nitrofurantoin monohyd/m-cryst [Macrobid] 100 mg capsule 100 mg PO Q12H 7 Days Qty: 14 0RF Rx Instructions: must administer with a meal/food tamsulosin [Flomax] 0.4 mg capsule 0.4 mg PO DAILY Qty: 30 0RF No Action aspirin 325 mg tablet 325 mg PO DAILY (DME) Walker with 4 wheels and a seat See Rx Instructions .Route .MEDSUPPLY Qty: 1 0RF Rx Instructions: As directed gabapentin 600 mg tablet 600 mg PO BID PRN (Reason: Pain) Qty: 60 3RF oxycodone-acetaminophen 5-325 mg tablet 1 tab PO Q6H PRN (Reason: pain) 15 Days Qty: 30 0RF lovastatin 40 mg tablet 40 mg PO DAILY Qty: 90 2RF albuterol sulfate 90 mcg/actuation HFA aerosol inhaler 2 inh inhalation QID PRN (Reason: shortness of breath or wheezing) Qty: 8.5 2RF cyclobenzaprine 10 mg tablet 10 mg PO TID PRN (Reason: muscle spasm) Qty: 30 2RF metformin 500 mg tablet 500 mg PO DAILY Qty: 30 6RF lisinopril 40 mg tablet See Rx Instructions .ROUTE .COMPLEX Qty: 90 2RF Dose Instruction: TAKE 1 TABLET BY MOUTH EVERY DAY Rx Instructions: TAKE 1 TABLET BY MOUTH EVERY DAY meloxicam 7.5 mg tablet 7.5 mg PO DAILY Qty: 30 6RF Discharge Orders: Discharge ED (Routine); Ordered 09/12/23 Ordered By: Hunter Rosario Referrals: Herve Calix MD [Primary Care Provider] - Discharge Diet: Usual diet Discharge Activity: Resume usual activity Patient Instructions: Opioid Safety, Pain Management Activity Restrictions/Additional Instructions: Activity Restrictions/Additional Instructions: Thank you for choosing [facility] for your healthcare needs today. Please realize that you were seen in the Emergency Department and that we are providing you with an emergency medical screening exam and this may not be a complete and all inclusive of all the testing and or medical work-up that you may need to determine your ailment or severity of your illness. It is very important that you follow-up as instructed with your Primary care provider or Specialist for additional evaluation and to discuss your medical treatment plan. You may return to the Emergency Department should you have concerns or if your condition changes or worsens in any way. Coding Level of Care Code ED Cycle Consultant for Octavia Lobo
[2023-09-12 04:14] VITALS: BP 187/97; PULSE 83; RESP 20; TEMP 36.6; O2SAT 95
[2023-09-12 05:04] LABS: Basophils % 0.2 %; Eosinophils # 0.1 10^3/uL (0.0-0.8); Eosinophils % 0.5 %; Hematocrit 41.9 % (37-53); Lymphocytes # 0.9 10^3/uL (0.8-4.8); Lymphocytes % 8.4 %; Mean Corpuscular HGB Conc 34.6 g/dL (30-55); Mean Corpuscular Hemoglobin 31.3 pg (27-33); Mean Corpuscular Volume 90.3 fl (82-101); Mean Platelet Volume 9.6 fL (7.4-10.4); Monocytes # 0.5 10^3/uL (0.2-0.9); Monocytes % 4.2 %; Neutrophils # 9.69 10^3/uL (1.8-7.7); Neutrophils % 86.3 %; Nucleated Red Blood Cells % 0 %; Platelet Count 152 10^3/cmm (157-399); Red Blood Count 4.64 10^6/uL (3.85-5.65); Red Cell Distribution Width 11.8 % (12.1-15.1); White Blood Count 11.22 10^3/uL (3.29-11.43)
[2023-09-12] MEDS: ondansetron 2 mg/ML SDV 2 mL 4 MG IVP (05:04)
[2023-09-12] MEDS: ketorolac 30 mg/mL INJ IVP (05:04)
[2023-09-12 05:22] LABS: Alanine Aminotransferase 28 U/L (0-41); Albumin Level 3.9 g/dL (3.5-5.2); Alkaline Phosphatase 117 U/L (40-130); Aspartate Amino Transferase 14 U/L (0-40); Blood Urea Nitrogen 13 mg/dL (8-23); Calcium 8.9 mg/dL (8.5-10.5); Carbon Dioxide 23 mmol/L (22-29); Chloride 95 mmol/L (98-107); Globulin 2.9 g/dL (1.3-4.6); Glucose 226 mg/dL (65-115); Osmolality Calculated 277 mOsm/kg (285-295); Sodium 130 mmol/L (136-145); Total Bilirubin 1.4 mg/dL (0.15-1.2); Total Protein 6.8 g/dL (6.6-8.7)
[2023-09-12 05:49] LABS: Add Urine Culture? Yes; Bilirubin Urine 1+ (Negative); Blood Urine 3+ (Negative); Glucose Urine UA 2+ (Normal); Ketones Urine 1+ (Negative); Leukocyte Esterase Urine 1+ (Negative); Nitrate Urine Negative (Negative); Protein Urine 3+ (Negative); RBC Urine 50-80 /hpf (0-2); Specific Gravity, Urine 1.015 (1.005-1.030); Squamous Epithelial Cell Urine 0-4 /hpf (0-5); Urine Appearance Hazy (CLEAR); Urine Color Orange (Yellow); Urobilinogen Urine Neg (Negative); pH Urine 6 (5-7)
[2023-09-12 05:50] LABS: Bacteria Urine 1+ /hpf
[2023-09-12 05:55] VITALS: BP 187/97; PULSE 72; O2SAT 94
[2023-09-12] MEDS: cefTRIAXone 1,000 MG in sodium chloride 0.9% (plus) 50 ML 100 MG IV (06:05)
[2023-09-12 06:07] VITALS: PULSE 70; RESP 16; O2SAT 92
[2023-09-12 07:42] VITALS: BP 187/97; PULSE 70; RESP 16; TEMP 36.6; O2SAT 92
== END 2023-09-12 07:45 | disposition home or self-care (01) ==
PROVIDERS: Emergency Provider Internal Medicine; PCP Family Medicine
DX: N39.0 Urinary tract infection, site not specified (principal); R33.9 Retention of urine, unspecified; Z79.82 Long term (current) use of aspirin; Z79.84 Long term (current) use of oral hypoglycemic drugs; Z87.891 Personal history of nicotine dependence; Z86.73 Personal history of transient ischemic attack (TIA), and cerebral infarction without residual deficits; E11.9 Type 2 diabetes mellitus without complications; I25.10 Atherosclerotic heart disease of native coronary artery without angina pectoris
CPT/HCPCS: 36415; 51702; 51798; 80053; 81001; 85025; 87086; 96365; 96375; 99284; J0696; J1885; J2405

== ENCOUNTER → 2023-09-14 16:32 | Outpatient (BNVA) | payer MEDICARE, OTHER, SELFPAY | PROVIDERS: PCP Family Medicine; Visit Provider Family Medicine | DX: R33.8 Other retention of urine (principal) | CPT/HCPCS: 81000 ==

== ENCOUNTER → 2023-10-15 13:59 | Outpatient (BNVA) | payer MEDICARE, OTHER, SELFPAY | PROVIDERS: PCP Family Medicine; Visit Provider Family Medicine | DX: Z01.818 Encounter for other preprocedural examination (principal); Z79.899 Other long term (current) drug therapy | CPT/HCPCS: 80053; 81003; 85025; 87086 ==

== ENCOUNTER → 2023-11-05 10:42 | Outpatient (BNVA) | payer MEDICARE, OTHER, SELFPAY | PROVIDERS: PCP Family Medicine; Visit Provider Internal Medicine Cardiovascular Disease | DX: R07.9 Chest pain, unspecified (principal); R55 Syncope and collapse; I65.23 Occlusion and stenosis of bilateral carotid arteries; R00.2 Palpitations; I10 Essential (primary) hypertension; I25.118 Atherosclerotic heart disease of native coronary artery with other forms of angina pectoris; Z98.890 Other specified postprocedural states; E11.9 Type 2 diabetes mellitus without complications; E78.5 Hyperlipidemia, unspecified | CPT/HCPCS: 93005; 99215 ==

== ENCOUNTER 2023-11-18 07:07 | Outpatient (CLI) | payer MEDICARE, OTHER, SELFPAY ==
--- NOTE | 2023-11-18 07:45 | USCV_ITS ---
Tenzin Hauser Age: 73 Gender: M : 1950 Exam Date: 11/18/2023 07:17 Ordering Phys: Jeramy Collado MD ([email or web address]) Technologist: GAYLA Exam Location: [facility] [place] Indication: Syncope. Stenosis Risk Factors: Previous Vascular Surgery: Right Brachial BP: / Left Brachial BP: / Right Left Velocity (cm/s) Spectral Plaque Velocity (cm/s) Spectral Plaque Syst/Diast Broadening Syst/Diast Broadening 55.80/ 9.40 Prox CCA 72.20 / 11.40 85.40/ 12.50 Mid CCA 89.50 / 19.20 72.40/ 14.10 Distal CCA 95.90 / 19.50 63.60/ 13.80 Prox ICA 96.50 / 18.40 104.20/22.80 Mid ICA 94.50 / 16.40 102.10/19.40 Distal ICA 92.50 / 20.40 103.00 ECA 54.70 1.40 ICA/CCA 1.00 Antegrade Vertebral Antegrade 27.60/ 7.00 cm/s 75.10/ 20.00 cm/s Tri Subclavian Bi 149.2 122.0 0 0 FINDINGS Mild to moderate dense plaques of the right bifurcation. Minimal plaques at the left bifurcation. Intimal thickening in the common carotid arteries bilaterally Antegrade flow in the vertebral arteries bilaterally. Normal Doppler flow velocities in the external carotid, vertebral and subclavian arteries bilaterally CONCLUSIONS Mild to moderate dense plaques of the right bifurcation suggesting less than 50% stenosis Minimal plaques at the left bifurcation. No significant stenosis in the vertebral, subclavian and external carotid arteries, based on the Doppler flow velocities Compared to the study from 06/03/2021, there may not be a significant change Dr Jeramy Collado MD [facility] (Electronically Signed) Final Date: 20 November 2023 14:00 S
--- NOTE | 2023-11-18 08:15 | USCV_ITS ---
Tenzin Hauser Age: 73 Gender: M : 1950 Exam Date: 11/18/2023 07:17 Ordering Phys: Jeramy Collado MD ([email or web address]) Technologist: KAR Exam Location: [facility] [place] Indication: PRE SYNCOPE BP: 167 / 70 HR: 47 Rhythm: Sinus Technical Quality: Adequate MEASUREMENTS (Male / Female) Normal Values 2D ECHO LV Diastolic Diameter PLAX 4.3 cm 4.2 - 5.9 / 3.9 - 5.3 cm IVS Diastolic Thickness 1.1 cm 0.6 - 1.0 / 0.6 - 0.9 cm IVS Systolic Thickness 2.0 cm LVPW Diastolic Thickness 1.8 cm 0.6 - 1.0 / 0.6 - 0.9 cm LVPW Systolic Thickness 2.4 cm LVOT Diameter 2.0 cm LV Ejection Fraction 2D Teich 64.2 % LV Ejection Fraction MOD 2C 65.8 % LV Ejection Fraction 2C AL 69.1 % LA Diameter 3.3 cm RA Systolic Volume 4C AL 17.6 ml RA Systolic Volume 4C MOD 17.0 ml LA Sys Volume AL 35.6 cm cubed LA Sys Volume Index AL 17.6 cm cubed/m squared Aorta at Sinotubular Diameter 2.9 cm M-MODE LA Ao Ratio MM 0.9 AV Cusp Separation MM 1.8 cm DOPPLER AV Peak Velocity 137.0 cm/s LVOT Peak Velocity 127.0 cm/s AV Area Cont Eq vti 3.0 cm squared AV Area Cont Eq pk 2.9 cm squared MV Peak Velocity 130.0 cm/s MV Area PHT 2.7 cm squared Mitral E to A Ratio 0.7 TR Peak Velocity 150.0 cm/s TR Peak Gradient 9.0 mmHg TR Mean Velocity 112.0 cm/s TR Mean Gradient 5.5 mmHg TR Velocity Time Integral 50.7 cm TV Peak E Velocity 66.0 cm/s Right Atrial Pressure 3.0 mmHg Pulmonary Artery Systolic Pressu 12.0 mmHg RV Ejection Time 0.4 s FINDINGS Left Ventricle Normal left ventricular size and systolic function, EF 66%. No regional wall motion abnormalities. Mild left ventricular hypertrophy. Grade I/IV diastolic dysfunction (abnormal relaxation filling pattern), normal to mildly elevated filling pressures. Hypokinetic basal inferior wall segment Right Ventricle The right ventricle is normal in size and function. Right Atrium The right atrium is normal in size. Left Atrium The left atrium is normal in size. Mitral Valve Trace to mild mitral valve regurgitation. Aortic Valve No gross abnormalities noted Tricuspid Valve No gross abnormalities noted Pulmonic Valve No gross abnormalities noted Pericardium Normal pericardium without effusion. Aorta Normal ascending aorta dimension. IVC Inferior vena cava not visualized. CONCLUSIONS Normal left ventricular size and systolic function, EF 66%. No regional wall motion abnormalities. Mild left ventricular hypertrophy. Grade I/IV diastolic dysfunction (abnormal relaxation filling pattern), normal to mildly elevated filling pressures. Hypokinetic basal inferior wall segment. Trace to mild mitral valve regurgitation. There is no pericardial effusion. There are no intracardiac masses. Compared to the study from 04/21/2015, the wall motion abnormality appears to be new Dr Jeramy Collado MD [facility] (Electronically Signed) Final Date: 20 November 2023 14:27 S
== END 2023-11-18 07:08 | disposition home or self-care (01) ==
LOC: RAD 07:07
PROVIDERS: PCP Family Medicine; Visit Provider Internal Medicine Cardiovascular Disease
DX: I65.23 Occlusion and stenosis of bilateral carotid arteries (principal); R06.09 Other forms of dyspnea; I50.30 Unspecified diastolic (congestive) heart failure
CPT/HCPCS: 93306; 93880

== ENCOUNTER 2023-12-10 07:06 | Outpatient (CLI) | payer MEDICARE, OTHER, SELFPAY ==
--- NOTE | 2023-12-10 07:23 | NMCV_ITS ---
NM courtney perf SPECT r/s* [id number] Tenzin Hauser Age: 73 Gender: M : 1950 Exam Date: 12/10/2023 08:00 Ordering Phys: Jeramy Collado MD ([email or web address]) Technologist: NIKOLE Min Exam Location: [facility] Indications: ASHD, SYNCOPE STRESS TEST Please see separate stress test report in [facility] for full findings IMAGE PROTOCOL Rest/Stress 1 Lexiscan Day Radiopharmaceutical Dose (mCi) Administration Site Administered by Rest: Tc-99m 10.6 IV NIKOLE Min Sestamibi Stress:Tc-99m 32.4 IV NIKOLE Min Sestamibi Rest: 10-Dec-2023 60 Discovery 630 Stress: 10-Dec-2023 30 Discovery 630 0.4mg Lexiscan. Images obtained in supine and prone position. SPECT RESULTS Technical Quality: Good Raw Data Analysis: Normal Image Corrections: Patient motion artifact - motion correction applied to supine image Summed Stress Score: 3 Summed Rest Score: 3 Summed Difference Score: 0 PERFUSION FINDINGS Small area of minimal to moderately decreased tracer uptake was noted in the basal inferior and basal inferolateral segments. No significant reversibility was noted in these regions FUNCTIONAL RESULTS (calculated via Gated SPECT) Stress Image LV EF (%): 67 Stress EDV (mL):104 TID: 1.16 Stress ESV (mL):34 FUNCTIONAL FINDINGS: Segmental wall motion analysis revealing no gross wall motion abnormalities IMPRESSIONS 1. Myocardial perfusion imaging revealing small area of minimal to moderately decreased persistent tracer uptake in the inferior and inferolateral regions, suggestive of myocardial scarring versus attenuation artifact 2. Normal LV ejection fraction 67%. 3. LV wall motion analysis revealing no gross wall motion abnormalities. 4. Normal LV volume 5. Slightly elevated transient ischemic dilatation ratio may suggest endocardial ischemia. But in the absence of any other abnormal objective findings, the positive predictive value of this finding is limited. Clinical correlation is recommended. 6. No similar previous studies are available for comparison Dr Jeramy Collado MD [facility] (Electronically Signed) Final Date: 10 December 2023 18:38 S
--- NOTE | 2023-12-10 07:23 | ECG_ITS ---
[facility] Test Date: 2023-12-10 Pat Name: Tenzin Hauser Department: Room: Gender: Male Supervisor [place]: : 1950 Requested By: Jeramy Collado Order Number: [id number] Inderjit MD: Jeramy Collado M.D. Interpretive Statements NAME OF STUDY: LEXISCAN SESTAMIBI STRESS TEST INDICATION: ASHD/SYNCOPE/ATYPICAL CHEST SYMPTOMS, PROCEDURE: At the baseline, the EKG revealed sinus bradycardia with incomplete right bundle branch block pattern. Features of old inferior wall [place]. The baseline heart was 43 bpm with a blood pressue of 114/64 mm of Hg Lexiscan was infused over a period of 20 seconds. A total of 0.4 milligrams of Lexiscan was infused. The stress phase was continued for a total of 5 minutes. Heart rate at the end of the stress phase was 53 bpm with a blood pressure 123/60 mm of Hg. The EKG at the peak infusion revealed no significant changes. Sestamibi was injected 20 seconds after the Lexiscan infusion. Heart rate at the end of the recovery phase was 51 bpm with a blood pressure of 122/69 mm of Hg. CONCLUSION: 1. No significant EKG changes with the LexiScan infusion 2. No LexiScan induced chest pain or cardiac arrhythmia 3. Normal blood pressure and heart rate response 4. Sestamibi/sestamibi perfusion scan pending; see separate report. Electronically Signed On 12-12-2023 14:45:15 CDT by Jeramy Collado M.D. [email or web address]
[2023-12-10 07:26] VITALS: BMI 26.7
[2023-12-10] MEDS: regadenoson 0.4 Mg/5 ml Syringe 0.400000000000000022 MG IVP (08:32)
[2023-12-10 08:48] VITALS: BP 125/87; PULSE 48
== END 2023-12-10 07:07 | disposition home or self-care (01) ==
LOC: CDL 07:07
PROVIDERS: PCP Family Medicine; Visit Provider Internal Medicine Cardiovascular Disease
DX: Z98.61 Coronary angioplasty status (principal); R94.39 Abnormal result of other cardiovascular function study
CPT/HCPCS: 36415; 78452; 93017; 96374; A9500; J2785

== ENCOUNTER 2024-01-27 12:27 | Outpatient (CLI) | payer MEDICARE, OTHER, SELFPAY ==
--- NOTE | 2024-01-27 12:37 | CT_ITS ---
WS: [id number] CT NECK TECHNIQUE: Contrast-enhanced CT of the neck with coronal and sagittal reformatted images. CLINICAL INFORMATION: OTALGIA, R EAR/OTHER DYSPHAGIA COMPARISON: CT 12/10/2018 DLP: 174.[address] scans at [facility] use at least one of these dose optimization techniques: automated e xposure control; mA and/or kV adjustment per patient size (includes targeted exams where dose is matc hed to clinical indication); or iterative reconstruction. FINDINGS: Paranasal sinuses are well aerated. Mastoid air cells are well aerated. Normal posterior nasopharynx. Normal parapharyngeal fat. Submandibular glands are normal. Normal parotid glands. Moderate calcifie d atheromatous disease RIGHT carotid bulb with RIGHT ICA stenosis. This could be further evaluated wi ultrasound. Postoperative changes LEFT carotid endarterectomy. Surgical clips LEFT neck. Chronic RIGHT occipital infarct partially visualized. Mild spondylitic changes cervical spine. Interb ninoska fusion C6-7. Similar multilevel spinal canal and foraminal narrowing. Small RIGHT thyroid nodule measuring 6 mm. Aortic arch calcification. Proximal subclavian arteries ar e patent. Lung apices are well aerated. CT/CT neck w con* [id number] IMPRESSION: 1. Salivary glands are normal. 2. No evidence of supraglottic or glottic mass. 3. No cervical lymphadenopathy. 4. Moderate spondylitic changes cervical spine similar to previous. 5. Protuberant anterior osteophytes at C3-C4 C4-C5 and C5-C6 with indentation on the posterior pharynx and larynx. Recommend correlation for dysphagia. This appears stable since 2019. 6. Partially visualized chronic RIGHT parietal infarct. 7. Paranasal sinuses and mastoid air cells are well aerated. Normal posterior nasopharynx.
[2024-01-27 13:39] LABS: Blood Urea Nitrogen 18 mg/dL (8-23)
[2024-01-27] MEDS: iohexol 350 mg/mL 500 mL Btl (per mL) IV (13:51)
== END 2024-01-27 12:28 | disposition home or self-care (01) ==
LOC: RAD 12:29
PROVIDERS: Radiology Diagnostic Radiology; PCP Family Medicine; Visit Provider Specialist
DX: H92.01 Otalgia, right ear (principal); R13.19 Other dysphagia; I65.21 Occlusion and stenosis of right carotid artery; I70.0 Atherosclerosis of aorta; M47.812 Spondylosis without myelopathy or radiculopathy, cervical region; M43.22 Fusion of spine, cervical region
CPT/HCPCS: 70491; 82565; 84520; Q9967

== ENCOUNTER → 2024-03-15 11:20 | Outpatient (BNVA) | payer MEDICARE, OTHER, SELFPAY | PROVIDERS: PCP Family Medicine; Visit Provider Family Medicine | DX: Z51.81 Encounter for therapeutic drug level monitoring (principal); E11.9 Type 2 diabetes mellitus without complications; E78.5 Hyperlipidemia, unspecified | CPT/HCPCS: 80053; 80061; 80076; 83036; 85025 ==

== ENCOUNTER → 2024-05-24 15:25 | Outpatient (BNVA) | payer MEDICARE, OTHER, SELFPAY | PROVIDERS: PCP Family Medicine; Visit Provider Orthopaedic Surgery | DX: M54.2 Cervicalgia (principal); M47.12 Other spondylosis with myelopathy, cervical region | CPT/HCPCS: 72050; 99204 ==

== ENCOUNTER 2024-05-30 15:15 | Outpatient (CLI) | payer MEDICARE, OTHER, SELFPAY ==
--- NOTE | 2024-05-30 15:15 | MR_ITS ---
WS: [id number] MRI CERVICAL SPINE NONCONTRAST TECHNIQUE: Sagittal T1, T2 and STIR imaging. Axial T2, gradient, and fiesta imaging. CLINICAL INFORMATION: neck pain COMPARISON: 2016 FINDINGS: Straightening of the normal cervical lordosis. Disc bulging worse at C2-C3 C3-C4 and C5-C6. Disc prot rusion at C5-C6 with severe central canal stenosis and indentation on the cervical cord. Interbody fu mabel at C6-7. Myelomalacia in the cervical cord at C5-6. This appears slightly progressed compared to 2016. C2-C3: Central disc osteophyte protrusion with mild central canal stenosis progressed compared to pre vious. Mild facet arthropathy. Moderate RIGHT and mild LEFT bony foraminal narrowing. C3-4: Central disc osteophyte protrusion with moderate to severe central canal stenosis. Indentation with flattening of the cervical cord. This is slightly progressed compared to previous. Severe LEFT a nd moderate RIGHT bony foraminal narrowing. Moderate facet arthropathy with uncovertebral joint hyper trophy. C4-C5: LEFT paracentral disc osteophyte complex with indentation on the LEFT ventral cervical cord. M ild central canal stenosis. This is slightly progressed compared to previous. Moderate bilateral bony foraminal narrowing RIGHT greater than LEFT. Mild facet arthropathy. C5-C6: Central disc osteophyte protrusion with indentation and flattening of the cervical cord. This is slightly progressed compared to previous. Impingement and flattening of the LEFT ventral cervical cord with myelomalacia. Severe LEFT and moderate RIGHT bony foraminal narrowing. Mild facet arthropat hy. C6-C7: Interbody bony fusion. Central osteophyte protrusion with slight indentation on the cervical c ord. Mild bilateral bony foraminal narrowing. Mild central canal stenosis. C7-T1: Grade 1 anterolisthesis. Severe RIGHT and moderate to severe LEFT bony foraminal narrowing. Ti ny shallow central protrusion. T1-T2: Shallow central protrusion. Moderate bilateral bony foraminal narrowing LEFT greater than RIGH T. Shallow central protrusions in the upper thoracic spine. Visualized brain stem structures: Normal. Prevertebral soft tissues: Normal. Prominent anterior hypertrophic changes worse at RIGHT C6-7. Small RIGHT thyroid nodule measuring 9 m m. MR/MR cervical spin wo con* [id number] IMPRESSION: 1. Central disc osteophyte protrusion C5-C6 with severe central canal stenosis slightly progressed compared to 2016. Indentation with flattening of the LEFT ventral cervical cord with myelomalacia. 2. Central disc osteophyte protrusions with mild central canal stenosis C2-3 a nd moderate to severe central canal stenosis C3-4 with flattening of the cervic al cord also slightly progressed compared to previous. 3. Multilevel moderate to severe bony foraminal narrowing worse at RIGHT C2-3, bilateral at C3-4, RIGHT C4-5, LEFT C5-C6, LEFT C6-7 and RIGHT C7-T1.
== END 2024-05-30 15:16 | disposition home or self-care (01) ==
PROVIDERS: PCP Family Medicine; Visit Provider Orthopaedic Surgery
DX: M99.61 Osseous and subluxation stenosis of intervertebral foramina of cervical region (principal); M25.78 Osteophyte, vertebrae; M50.20 Other cervical disc displacement, unspecified cervical region; M47.892 Other spondylosis, cervical region; M50.022 Cervical disc disorder at C5-C6 level with myelopathy; M43.12 Spondylolisthesis, cervical region; M99.62 Osseous and subluxation stenosis of intervertebral foramina of thoracic region; M50.21 Other cervical disc displacement, high cervical region; M50.322 Other cervical disc degeneration at C5-C6 level; E04.1 Nontoxic single thyroid nodule
CPT/HCPCS: 72141

== ENCOUNTER → 2024-07-05 07:46 | Outpatient (BNVA) | payer MEDICARE, OTHER, SELFPAY | PROVIDERS: PCP Family Medicine; Visit Provider Orthopaedic Surgery | DX: M54.2 Cervicalgia (principal); Z09 Encounter for follow-up examination after completed treatment for conditions other than malignant neoplasm | CPT/HCPCS: 36415; 80053; 81001; 85025; 99214 ==

== ENCOUNTER → 2024-07-15 09:47 | Outpatient (BNVA) | payer MEDICARE, OTHER, SELFPAY | PROVIDERS: PCP Family Medicine; Visit Provider Family Medicine | DX: Z01.818 Encounter for other preprocedural examination (principal); R94.31 Abnormal electrocardiogram [ECG] [EKG] | CPT/HCPCS: 93005 ==

== ENCOUNTER 2024-07-27 08:44 | Day surgery (SDC) | payer MEDICARE, OTHER, SELFPAY ==
[2024-07-27] VITALS (19 sets, daily range): BP systolic 123–178; BP diastolic 50–100; PULSE 54–79; RESP 12–24; TEMP 36.1–36.2; O2SAT 92–98; BMI 29.6
[2024-07-27] MEDS: sodium chloride 0.9% 1,000 ML 30 ML IV (09:30)
[2024-07-27 09:31] LABS: Glucose Point of Care 146 mg/dL (70-110)
--- NOTE | 2024-07-27 09:33 | ANES.PREANE2 ---
Pre-Anesthetic Assessment Height/Weight: Height 5 ft 8 in Weight 195 lb O2 Del Method Room Air 07/27/24 09:07 Preop Diagnosis: Cervical stenosis with radiculopathy Operation Date: 07/27/24 10:40 Proposed Procedures p Anterior Cervical Discectomy & Fusion ACDF w/ Anterior Interbody Fusion w/ Cage w/ Instrumentation w/ Allograft w/ Navigation(Not Applicable) - Milind Lau, DO Was Beta Nikko taken within 24 hours: N/A Was Clonidine taken within 24 hours: N/A Last intake: Intake Last Liquid Date 07/26/24 Last Liquid Time 22:00 Last Solid Date 07/26/24 Last Solid Time 20:00 Social No alcohol and No tobacco Exam alert, oriented x 3, clear to auscultation bilaterally and regular rate & rhythm Airway Submandibular: within normal limits Cervical ROM: within normal limits Mallampati: Class II Dentition: false and full Comments: Comments: Upper dentures, missing a few teeth on the bottom, denies any loose Anesthetic Plan ASA status: 3 Anesthesia: General Other: No prior issues with anesthesia NPO since yesterday History significant for hypertension, on lisinopril. Type 2 diabetes on glipizide and metformin CAD, stents placed over 10 years ago. 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 BS 146 today EKG sinus rhythm with small conduction delay Negative stress test in November 2023 Plan for GETA Medications/Allergies Home Medications ?Medication ?Instructions ?Recorded ?Confirmed ?Last Taken ?Type tamsulosin 0.4 mg capsule (Flomax) 0.4 mg PO DAILY #30 caps 09/12/23 07/26/24 07/26/24 Rx alcohol swabs 1 pad topical DIRECTED #200 ea 11/19/23 07/26/24 Unknown Rx blood sugar diagnostic (Blood #200 ea 11/19/23 07/15/24 Unknown Rx Glucose Test strips) blood-glucose meter #1 ea 11/19/23 07/15/24 Unknown Rx lancets #200 ea 11/19/23 07/15/24 Unknown Rx Walker with 4 wheels and a seat #1 ea 12/25/23 07/15/24 Unknown Rx lovastatin 40 mg tablet 80 mg (2 x 40 mg) PO .nightly #90 04/19/24 07/26/24 07/26/24 Rx tabs cyclobenzaprine 10 mg tablet 10 mg PO TID PRN muscle spasm #30 05/02/24 07/26/24 Unknown Rx tabs metformin 1,000 mg tablet 1,000 mg PO BID #60 tabs 05/04/24 07/26/24 07/26/24 Rx glipizide 5 mg tablet 5 mg PO DAILY #30 tabs 05/31/24 07/26/24 07/26/24 Rx lisinopril 40 mg tablet 40 mg PO DAILY 07/26/24 07/26/24 07/26/24 History Allergies Allergy/AdvReac Type Severity Reaction Status Date / Time famotidine (From Pepcid) Allergy ADR-Nausea Verified 07/26/24 10:22 [facility] Anesthesia Medical History Bladder cancer Dr Harlan CUELLO (cerebral vascular accident) Carotid stenosis Spinal stenosis Diabetes mellitus Coronary artery disease Surgical History History of bladder surgery Tumor removal - 2023 H/O lateral meniscus repair of left knee H/O heart artery stent History of cholecystectomy H/O neck surgery History of back surgery H/O right knee surgery Right knee replacement History of left-sided carotid endarterectomy Family History Father CAD (coronary artery disease) Sister Diabetes Denies family history of Cancer Hypertension Stroke Social History Smoking and tobacco/nicotine status: never used tobacco/nicotine Quit status (tobacco/nicotine): has quit using Year quit tobacco: 1979 Alcohol intake: current Alcohol intake frequency: 0-2 Drinks per Day Alcohol type: beer Substance/Drug Use: never Data Anesthesia Cardiac Studies: Echocardiogram 11/18/23 Sestamibi Stress Test (Cardiology) 12/10/23 Cardiac Event Monitor 11/05/23
--- NOTE | 2024-07-27 10:55 | W.PM.OPSUD ---
Surgery/Procedure H&P Update DATE OF PROCEDURE: July 27, 2024 DATE H&P PERFORMED: 07/15/24 H&P UPDATE INFORMATION: I have reviewed H&P completed within last 30 days, I have examined patient prior to procedure and No changes to prior documentation PREOP DIAGNOSIS: Cervical stenosis with radiculopathy PLANNED PROCEDURE: Operation Date: 07/27/24 10:40 Proposed Procedures p Anterior Cervical Discectomy & Fusion ACDF w/ Anterior Interbody Fusion w/ Cage w/ Instrumentation w/ Allograft w/ Navigation(Not Applicable) - Milind Lau DO
[2024-07-27] MEDS: ceFAZolin 2,000 mg SDV 2000 MG IVP (11:21)
[2024-07-27] MEDS: lidocaine-epi 1% 20 mL INJ INJECTION (12:16)
--- NOTE | 2024-07-27 13:22 | XR_ITS ---
WS: [id number] XR cervical spine 3V* [id number] REASON FOR EXAM: OR PICS FINDINGS: Anterior plate and screw fixation with interbody fusion device C5-C6. Surgical appliances are intact and in proper position and alignment. XR/XR cervical spine 3V* [id number] IMPRESSION: Anterior cervical fusion without abnormality as above.
--- NOTE | 2024-07-27 13:47 | PM.OP ---
Operative Report Date of procedure: July 27, 2024 Pre-op diagnosis: Cervical stenosis with myelopathy Post-op diagnosis: same Procedure done: 1. Anterior diskectomy C5/6 2. Insertion of cage C5/6 3. Instrumentation with anterior plate from C5-C6 4. Use of allograft Surgeon: Milind Lau DO Estimated blood loss (mL): 25 Procedure: 1. Anterior diskectomy C5/6 2. Insertion of cage C5/6 3. Instrumentation with anterior plate from C5-C6 4. Use of allograft The patient was taken to the operating room, where he underwent general endotracheal anesthesia without complications. He was then positioned supine on the operating table, and all areas of impingement were well padded. The arms were carefully padded and tucked at his sides. A roll was placed between the shoulder blades.. An x-ray was done to determine the appropriate level for the skin incision. The entire neck was then sterilely prepped and draped in the usual fashion. Neuromonitoring was attached prior to prepping. A transverse skin incision was made and carried down to the platysma muscle. This was then split in line with its fibers. Blunt dissection was carried down medial to the carotid sheath and lateral to the trachea and esophagus until the anterior cervical spine was visualized. A needle was placed into a disc and an x-ray was done to determine its location. The longus colli muscles were then elevated bilaterally with the electrocautery unit. Self-retaining retractors were placed deep to the longus colli muscle. Attention was brought to the C5/6 level that was confirmed on x-ray. A caspar pin was placed into the C5 vertebrae and the C6 vertebrae. The disk space was then distracted. The microscope was then brought in. A radical anterior discectomies were performed at C5/6. This included complete removal of the anterior annulus, nucleus, and posterior annulus. The posterior longitudinal ligament was removed as were the posterior osteophytes. Foraminotomies were then accomplished bilaterally. This was done using a high speed idania, kerrison rongeurs and curretes Once all of this was accomplished, the curved currette was used to check for any residual compression. The central canal was wide open as were the foramen. A high-speed bur was used to remove the cartilaginous endplates above and below the interspace. Bleeding cancellous bone was exposed. The disc space were measured and appropriate size cage were placed sterilely onto the field. Allograft graft was packed into the cages. The cage was then placed and there was good juxtaposition against the bleeding decorticated surfaces and good distraction of each interspace. The [place] pins were removed. Bone wax was used to prevent any bleeding from occurring at the pin sites. The appropriate size anterior cervical locking plate was chosen and bent into gentle lordosis. Two screws were then placed into each of the vertebral bodies at C5 and C6. There was excellent purchase. A final x-ray was done confirming good position of the hardware and Cages. The locking screws were then applied, also with excellent purchase. Following a final copious irrigation, there was good hemostasis and no dural leaks. The carotid pulse was strong. The wounds were then closed in layers using 2-0 Vicryl suture for the platysma muscle, 2-0 Vicryl suture for the subcutaneous tissue, and 4-0 monocryl suture in a subcuticular skin closure. Glue was placed followed by application of a sterile dressing. The drain was hooked to bulb suction. A soft collar was applied. The patient was then carefully returned to the supine position on his hospital bed where he was reversed and extubated and taken to the recovery room having tolerated the procedure well.
[2024-07-27] MEDS: morphine 4 mg/mL SDV 1 mL 2 MG IVP (14:23)
[2024-07-27] MEDS: ondansetron 2 mg/ML SDV 2 mL 4 MG IVP (14:24)
[2024-07-27] MEDS: HYDROcodone-acetaminophen 10-325 mg Tablet 1 TAB PO (14:52)
[2024-07-27] MEDS: HYDROmorphone 1 mg/mL INJ 1 mL 0.5 MG IVP ×2 (14:52→16:33)
[2024-07-27] MEDS: diazePAM 5 mg Tablet PO (15:24)
--- NOTE | 2024-07-27 15:55 | PC.NURSE ---
Pt reports to nurse he does not have anyone that lives at home with him at time of discharge, pt also reports pain rating as high as 10/10 with multiple pain medication received, pt has received morphine IVP, dilaudid IVP, hydrocodone 10mg-325mg x1, and 5 mg valium PO, at this time pt reports pain as 7/10 in his neck, notified Dr. Lau and Dominick, plan is to admit patient for pain control.
--- NOTE | 2024-07-27 17:01 | SUR.PHASEII ---
1610-Report for patient care was given by Carri and plan was to hold patient until a room was available to be admitted for pain control. 1645-Plan of care has been changed to discharging patient home as pain is controlled and there are no beds available within the hospital. 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
== END 2024-07-27 17:36 | disposition home or self-care (01) ==
PROVIDERS: PCP Family Medicine; Visit Provider Orthopaedic Surgery
PROC: 0RB30ZZ Excision of Cervical Vertebral Disc, Open Approach (ICD-10-PCS; CPT 22551; principal; 2024-07-27 10:20)
DX: M48.02 Spinal stenosis, cervical region (principal); M50.022 Cervical disc disorder at C5-C6 level with myelopathy; M47.12 Other spondylosis with myelopathy, cervical region; M47.22 Other spondylosis with radiculopathy, cervical region; Z87.891 Personal history of nicotine dependence; Z79.899 Other long term (current) drug therapy; Z79.84 Long term (current) use of oral hypoglycemic drugs; E11.9 Type 2 diabetes mellitus without complications; I25.10 Atherosclerotic heart disease of native coronary artery without angina pectoris; Z86.73 Personal history of transient ischemic attack (TIA), and cerebral infarction without residual deficits
CPT/HCPCS: 22551; 22853 ×2; 22845; 20930; 36415; 36416; 72040; 76000; 82962; C1713; C1763; C9359; J0690; J1100; J1171; J2270; J2405; J2704; J3010; J3490; J7030

== ENCOUNTER → 2024-08-09 13:38 | Outpatient (BNVA) | payer MEDICARE, OTHER, SELFPAY | PROVIDERS: PCP Family Medicine; Visit Provider Orthopaedic Surgery | DX: Z98.890 Other specified postprocedural states (principal); M48.02 Spinal stenosis, cervical region | CPT/HCPCS: 99024 ==

== ENCOUNTER → 2024-08-22 09:07 | Outpatient (BNVA) | payer MEDICARE, OTHER, SELFPAY | PROVIDERS: PCP Family Medicine; Visit Provider Family Medicine | DX: R97.20 Elevated prostate specific antigen [PSA] (principal); R73.03 Prediabetes; I10 Essential (primary) hypertension | CPT/HCPCS: 80053; 83036; 84153; 85025 ==

== ENCOUNTER → 2024-09-06 12:45 | Outpatient (BNVA) | payer MEDICARE, OTHER, SELFPAY | PROVIDERS: PCP Family Medicine; Visit Provider Orthopaedic Surgery | DX: M48.02 Spinal stenosis, cervical region (principal) | CPT/HCPCS: 72040; 99024 ==

== ENCOUNTER → 2024-09-27 08:39 | Outpatient (BNVA) | payer MEDICARE, OTHER, SELFPAY | PROVIDERS: PCP Family Medicine; Visit Provider Orthopaedic Surgery | DX: Z98.1 Arthrodesis status (principal) | CPT/HCPCS: 72040; 99213 ==

== ENCOUNTER → 2024-10-03 12:48 | Outpatient (BNVA) | payer MEDICARE, OTHER, SELFPAY | PROVIDERS: PCP Family Medicine; Visit Provider Specialist | DX: G56.03 Carpal tunnel syndrome, bilateral upper limbs (principal) | CPT/HCPCS: 73130; 99204 ==

== ENCOUNTER → 2024-11-08 15:08 | Outpatient (BNVA) | payer MEDICARE, OTHER, SELFPAY | PROVIDERS: PCP Family Medicine; Visit Provider Orthopaedic Surgery | DX: Z98.1 Arthrodesis status (principal) | CPT/HCPCS: 72040; 80053; 83036; 84153; 85025; 99213 ==

== ENCOUNTER 2024-11-15 13:08 | Outpatient (CLI) | payer MEDICARE, OTHER, SELFPAY ==
--- NOTE | 2024-11-15 13:30 | MR_ITS ---
WS: [id number] MRA ANGIOGRAPHY [place] HISTORY: acute onset vertigo, hx CVA, r/o posterior circulatory CVA COMPARISON: 04/02/2016 TECHNIQUE: 3-D MR angiography is performed of the [place]. All images are reviewed including source images. Small caliber but patent distal RIGHT vertebral artery. Distal LEFT vertebral artery is dominant. Normal basilar artery. Posterior cerebral arteries aren't visualized on today's exam and normal. Posterior communicating arteries are small caliber. Minimal atherosclerotic disease in the distal intracranial carotid arteries. Mild irregularity of the M1 segments. No stenosis or occlusion middle cerebral arteries. No aneurysms. Anterior cerebral arteries are normal. No aneurysm. Prior RIGHT occipital infarct. MR/MR angio head wo con [id number] IMPRESSION: 1. No occlusions of the [place] or aneurysm. 2. Mild atherosclerotic disease in the distal carotid arteries and M1 segments . No high-grade occlusions.
== END 2024-11-15 13:09 | disposition home or self-care (01) ==
LOC: RAD 13:10
PROVIDERS: PCP Family Medicine; Visit Provider Family Medicine
DX: R42 Dizziness and giddiness (principal); R93.0 Abnormal findings on diagnostic imaging of skull and head, not elsewhere classified
CPT/HCPCS: 70544

== ENCOUNTER 2024-12-21 07:52 | Outpatient (CLI) | payer MEDICARE, OTHER, SELFPAY ==
[2024-12-21 08:55] LABS: Hematocrit 43.1 % (37-53); Hemoglobin 14.00 g/dL (11.27-16.99); Mean Corpuscular HGB Conc 32.5 g/dL (30-55); Mean Corpuscular Hemoglobin 31.3 pg (27-33); Mean Corpuscular Volume 96.2 fl (82-101); Nucleated Red Blood Cells % 0 %; Platelet Count 142 10^3/cmm (157-399); Red Blood Count 4.48 10^6/uL (3.85-5.65); White Blood Count 5.97 10^3/uL (3.29-11.43)
[2024-12-21 09:01] LABS: Estmated Average Glucose 146; Hemoglobin A1C 6.7 % (4.0-6.0)
[2024-12-21 09:02] LABS: Glucose Urine UA Trace (Normal); Nitrate Urine Negative (Negative); Specific Gravity, Urine 1.017 (1.005-1.030)
[2024-12-21 09:07] LABS: Add Urine Microscopic? YES
[2024-12-21 09:11] LABS: Alanine Aminotransferase 14 U/L (0-41); Albumin Level 3.9 g/dL (3.5-5.2); Alkaline Phosphatase 106 U/L (40-130); Anion Gap 17.9 (5-19); Aspartate Amino Transferase 16 U/L (0-40); Blood Urea Nitrogen 13 mg/dL (8-23); Calcium 8.7 mg/dL (8.5-10.5); Carbon Dioxide 27 mmol/L (22-29); Chloride 101 mmol/L (98-107); Globulin 2.5 g/dL (1.3-4.6); Glucose 145 mg/dL (65-115); Osmolality Calculated 297 mOsm/kg (285-295); Potassium 3.9 mmol/L (3.5-5.1); Sodium 142 mmol/L (136-145); Total Protein 6.4 g/dL (6.6-8.7)
== END 2024-12-21 07:53 | disposition home or self-care (01) ==
LOC: LAB 07:58
PROVIDERS: PCP Family Medicine; Visit Provider Specialist
DX: Z01.818 Encounter for other preprocedural examination (principal)
CPT/HCPCS: 36415; 80053; 81001; 83036; 85025; 87086

== ENCOUNTER 2025-01-05 06:58 | Day surgery (SDC) | payer MEDICARE, OTHER, SELFPAY ==
[2025-01-05] VITALS (11 sets, daily range): BP systolic 111–169; BP diastolic 55–81; PULSE 43–165; RESP 10–18; TEMP -12.3–36.5; O2SAT 92–98; BMI 28.1
--- NOTE | 2025-01-05 08:02 | ANES.PREANE2 ---
Pre-Anesthetic Assessment Height/Weight: Height 1.73 m Weight 83.915 kg Temp Pulse Resp BP Pulse Ox O2 Del Method 97.1 F L 50 L 16 167/63 97 Room Air 01/05/25 07:29 01/05/25 07:29 01/05/25 07:29 01/05/25 07:29 01/05/25 07:29 01/05/25 07:33 Operation Date: 01/05/25 09:05 Proposed Procedures p RIGHT Carpal Tunnel Release(Right) - Claire Acuña MD Familial anesthetic complications: None Was Beta Nikko taken within 24 hours: N/A Was Clonidine taken within 24 hours: N/A Last intake: Intake Last Liquid Date 01/04/25 Last Liquid Time 22:00 Last Solid Date 01/04/25 Last Solid Time 22:00 Social Alcohol and Tobacco Exam alert, oriented x 3, clear to auscultation bilaterally and regular rate & rhythm Airway Mallampati: Class I Dentition: chipped and false CV/HEM Coronary Artery Disease, Hypertension and Myocardial Infarction GI Gastroesophageal Reflux Disease (pepcid makes him vomit) Metabolic Diabetes Mellitus and Hyperlipidemia Neuropsych Cerebrovascular Accident (DANAY s/p CEA) Anesthetic Plan ASA status: 3 Anesthesia: General Risk of > 500 ml blood loss (7ml/kg in children): No Medications/Allergies Home Medications ?Medication ?Instructions ?Recorded ?Confirmed ?Last Taken ?Type tamsulosin 0.4 mg capsule (Flomax) 0.4 mg PO DAILY #30 caps 09/12/23 01/04/25 01/04/25 Rx blood sugar diagnostic (Blood #200 ea 11/19/23 12/22/24 01/04/25 Rx Glucose Test strips) blood-glucose meter #1 ea 11/19/23 12/22/24 01/04/25 Rx lancets #200 ea 11/19/23 12/22/24 01/04/25 Rx Walker with 4 wheels and a seat #1 ea 12/25/23 12/22/24 01/04/25 Rx lovastatin 40 mg tablet 80 mg (2 x 40 mg) PO .nightly #90 07/28/24 01/04/25 01/04/25 Rx tabs Bone Growth Stimulator #1 ea 08/04/24 12/22/24 01/04/25 Rx gabapentin 100 mg capsule 100 mg PO TID PRN Nerve pain #60 03/13/25 07/23/25 07/23/25 Rx caps omeprazole 40 mg capsule,delayed 40 mg PO DAILY #90 caps 12/27/24 01/04/25 01/04/25 Rx release glipizide 5 mg tablet 5 mg PO DAILY 01/04/25 01/04/25 01/04/25 History lisinopril 40 mg tablet 40 mg PO DAILY 01/04/25 01/04/25 01/04/25 History metformin 1,000 mg tablet 1,000 mg PO BID 01/04/25 01/04/25 01/04/25 History Allergies Allergy/AdvReac Type Severity Reaction Status Date / Time famotidine (From Pepcid) Allergy ADR-Nausea Verified 12/27/24 08:11 [facility] Anesthesia Medical History Bladder cancer Dr Harlan CUELLO (cerebral vascular accident) Carotid stenosis Spinal stenosis Diabetes mellitus Coronary artery disease Surgical History History of bladder surgery Tumor removal - 2023 H/O lateral meniscus repair of left knee H/O heart artery stent History of cholecystectomy H/O neck surgery History of back surgery H/O right knee surgery Right knee replacement History of left-sided carotid endarterectomy Family History Father CAD (coronary artery disease) Sister Diabetes Denies family history of Cancer Hypertension Stroke Social History Smoking and tobacco/nicotine status: never used tobacco/nicotine Quit status (tobacco/nicotine): has quit using Year quit tobacco: 1979 Alcohol intake: current Alcohol intake frequency: 0-2 Drinks per Day Alcohol type: beer Substance/Drug Use: never Data Anesthesia Cardiac Studies: Echocardiogram 11/18/23 Sestamibi Stress Test (Cardiology) 12/10/23 Cardiac Event Monitor 11/05/23
--- NOTE | 2025-01-05 08:09 | W.PM.OPSUD ---
Surgery/Procedure H&P Update DATE OF PROCEDURE: January 05, 2025 DATE H&P PERFORMED: 12/27/24 H&P UPDATE INFORMATION: I have reviewed H&P completed within last 30 days, I have examined patient prior to procedure, No changes to prior documentation, H&P is in [facility] EMR on date indicated and Risks and benefits of the procedure reviewed PLANNED PROCEDURE: Operation Date: 01/05/25 09:05 Proposed Procedures p RIGHT Carpal Tunnel Release(Right) - Claire Acuña MD Related Problem List Diagnoses 1. Carpal tunnel syndrome on right:
[2025-01-05] MEDS: acetaminophen 1,000 MG/100 ML PIGGYBACK 400 MG IV (08:15)
[2025-01-05] MEDS: ceFAZolin 2,000 mg SDV 2000 MG IVP (08:47)
[2025-01-05] MEDS: BUPivacaine 0.5% INJ 30 mL XX (09:07)
--- NOTE | 2025-01-05 09:30 | P.OP_ITS ---
Operative Report Date of procedure: January 05, 2025 Pre-op diagnosis: Right carpal tunnel syndrome Post-op diagnosis: Right carpal tunnel syndrome Post-op findings: Significant thickening of the transverse carpal ligament with compression across the carpal canal Procedure done: Right carpal tunnel release Implants: None Specimens removed/disposition: None Pathology: None Surgeon: Claire Acuña MD Redevelopment Manager: None Anesthesia: General (Per LMA, ASA 3) Estimated blood loss (mL): 1 Tourniquet time (min): 16 (At 250 mmHg) IV fluids (mL): 300 Urine output (mL): 0 (No Rojas) Complications: None Findings: Significant compression across carpal canal as noted above Condition: stable Disposition: PACU (Then return to same-day surgery for discharge to home) Brief History: This 74-year-old gentleman presented to the office complaining of of numbness in the right hand. He had 0 pain, but had significant numbness in his right thumb index and long fingers. Discussion was undertaken with the patient in the office. Patient wished to proceed with carpal tunnel release. The patient was scheduled for the surgical intervention. Consents were signed in the office and questions were answered. Procedure: The patient was brought to the operating theater. The patient had general anesthesia per LMA, ASA 3. The arm was exsanguinated, and the tourniquet was elevated to 250 mmHg for a total tourniquet time of 16 minutes. The patient was also given Ancef 2 g preoperatively. The arm was then prepped and draped with DuraPrep in usual fashion with the arm draped free. A surgical pause was performed. At the time, the surgical pause, we confirmed the site and side of surgery. We also confirmed the patient's identity, appropriate and timely administration of preoperative antibiotics and preoperative surgical markings. An incision was then made along the thenar crease. The incision crossed the wrist joint in a curvilinear fashion. Dissection continued through skin and soft tissues using a scalpel. The palmaris longus was identified along with the transverse carpal ligament. Each of these was released carefully to avoid injury to the median nerve. We were able to dissect gently into the carpal canal which was noted to be quite tight with significant compression across the median nerve. The nerve was visualized and was an hourglass shape. The canal was subsequently palpated to assure there was no bony encroachment upon the canal. The canal was then palpated distally and proximally to assure that my small fing er was passed easily without impingement. Finding this to be so, attention was directed to closure. The wound was irrigated with ropivacaine plain. It was then closed with 3-0 nylon in an interrupted mattress fashion. Sterile dressing was then placed consisting of Dermabond, OpSite, fluffed fluffs, sterile soft roll, and an Rudy wrap. The tourniquet was released after 16 minutes. There were no complications. There were no specimens. The procedure was well tolerated. Plan is the patient will be discharged home. Related Problem List Diagnoses 1. Carpal tunnel syndrome on right:
--- NOTE | 2025-01-05 11:05 | ANE.PACU2 ---
Inpatient post-anesthesia follow up: Airway intact: Yes Vital signs: Temperature 97.7 F Pulse Rate 165 Respiratory Rate 16 Blood Pressure 165/81 Pulse Oximetry 98 Oxygen Delivery Me thod Room Air Oxygen Flow Rate Fraction of Inspir ed Oxygen Hydration adequate: Yes Nausea and vomiting: No Pain level: 1 Mental status: Baseline
== END 2025-01-05 11:05 | disposition home or self-care (01) ==
PROVIDERS: PCP Family Medicine; Visit Provider Specialist
PROC: (CPT 64721; principal; 2025-01-05 08:55)
DX: G56.01 Carpal tunnel syndrome, right upper limb (principal); I25.10 Atherosclerotic heart disease of native coronary artery without angina pectoris; I10 Essential (primary) hypertension; I25.2 Old myocardial infarction; K21.9 Gastro-esophageal reflux disease without esophagitis; E11.9 Type 2 diabetes mellitus without complications; E78.5 Hyperlipidemia, unspecified; Z86.73 Personal history of transient ischemic attack (TIA), and cerebral infarction without residual deficits; Z79.84 Long term (current) use of oral hypoglycemic drugs
CPT/HCPCS: 64721; 36416; 82962; J0131; J0690; J1100; J2405; J2704; J3010; J3490; J7030; J9999

== ENCOUNTER → 2025-01-19 12:53 | Outpatient (BNVA) | payer MEDICARE, OTHER, SELFPAY | PROVIDERS: PCP Family Medicine; Visit Provider Orthopaedic Surgery | DX: Z98.1 Arthrodesis status (principal) | CPT/HCPCS: 72040; 99213 ==

== ENCOUNTER → 2025-01-20 09:00 | Outpatient (BNVA) | payer MEDICARE, OTHER, SELFPAY | PROVIDERS: PCP Family Medicine; Visit Provider Nurse Practitioner | DX: Z98.890 Other specified postprocedural states (principal) | CPT/HCPCS: 99024 ==

== ENCOUNTER → 2025-03-06 11:49 | Outpatient (BNVA) | payer MEDICARE, OTHER, SELFPAY | PROVIDERS: PCP Family Medicine; Visit Provider Nurse Practitioner | DX: Z98.890 Other specified postprocedural states (principal) | CPT/HCPCS: 99024; 99213 ==

== ENCOUNTER 2025-03-08 11:08 | Outpatient (CLI) | payer MEDICARE, OTHER, SELFPAY ==
--- NOTE | 2025-03-08 11:11 | XR_ITS ---
WS: [id number] Exam: XR hip RT 2-3V wo/w pel* [id number] Date/Time of Exam: 03/08/2025 11:22 AM Reason For Exam: Right hip pain Comparison 03/17/2023. Moderately advanced degenerative change of the joint compartment. Hypertrophic osteophyte formation along the superior lateral acetabulum. Normal soft tissues. L4-S1 fusion with disc spacers. Postop changes over the pubic symphysis. XR/XR hip RT 2-3V wo/w pel* [id number] IMPRESSION: 1. Moderate degenerative change. No fracture.
--- NOTE | 2025-03-08 11:11 | XR_ITS ---
WS: [id number] Exam: XR lumbar spine 2-3V* [id number] Date/Time of Exam: 03/08/2025 11:22 AM Reason For Exam: Low back pain DLP: Comparison 11/27/2022. There is operative fusion of the spine from L4-S1 with pedicle screws and posterior rods. Disc spacers at L4-5 and L5-S1. The fusion remains in good alignment. No hardware complication identified. There is spondylosis of the lumbar spine and disc degeneration at all levels. There is moderate levoscolio sis. No acute fracture. XR/XR lumbar spine 2-3V* [id number] IMPRESSION: 1. Stable appearing fusion from L4-S1. 2. Advanced degenerative changes, spondylosis and scoliosis.
== END 2025-03-08 11:09 | disposition home or self-care (01) ==
LOC: RAD 11:10
PROVIDERS: PCP Family Medicine; Visit Provider Family Medicine
DX: M54.16 Radiculopathy, lumbar region (principal); M16.11 Unilateral primary osteoarthritis, right hip; M47.816 Spondylosis without myelopathy or radiculopathy, lumbar region; M41.86 Other forms of scoliosis, lumbar region; M51.369 Other intervertebral disc degeneration, lumbar region without mention of lumbar back pain or lower extremity pain; M25.751 Osteophyte, right hip
CPT/HCPCS: 72100; 73502

== ENCOUNTER → 2025-03-22 07:52 | Outpatient (BNVA) | payer MEDICARE, OTHER, SELFPAY | PROVIDERS: PCP Family Medicine; Visit Provider Physician Assistant | DX: M16.11 Unilateral primary osteoarthritis, right hip (principal) | CPT/HCPCS: 99203 ==